=== PATIENT | female | born 1940 | race Caucasian/White ===

== ENCOUNTER → 2019-05-23 15:02 | Outpatient (CLI) | payer OTHER, SELFPAY ==
--- NOTE | ~2019-05-23 | MM_ITS ---
EXAMINATION: MM screening [facility]hew BI w eloina HISTORY: Screening mammogram TECHNIQUE: Craniocaudal and mediolateral oblique 3-D tomosynthesis images were obtained and synthetic 2-D images were generated. CAD analysis was submitted and interpreted. COMPARISON: 04/13/2018, 03/10/2017, 01/29/2016 bilateral digital screening mammogram examinations BREAST PARENCHYMAL COMPOSITION: There are scattered areas of fibroglandular density. FINDINGS: There is volume loss of the right breast consistent with partial mastectomy for breast canc er. There is mild right skin thickening likely related to prior radiation treatment. There are liyah us bilateral benign appearing calcifications including extensive secretory calcifications on the righ t in particular. There are calcified microhematomas. There is no evidence of suspicious mass, calcifi cation, or architectural distortion to suggest malignancy in either breast. There has been no suspici ous interval change. IMPRESSION: 1. No mammographic evidence of malignancy. 2. Recommend routine screening mammography in one year and any additional imaging as appropriate for this patient with history of breast cancer. BI-RADS Category 2: Benign finding(s). Reviewed, dictated and finalized at location A. O FINISH PHOTOGRAPHER IMPRESSION: 1. No mammographic evidence of malignancy. 2. Recommend routine screening mammography in one year and any additional imagi ng as appropriate for this patient with history of breast cancer. BI-RADS Category 2: Benign finding(s).
== END ==
PROVIDERS: PCP Family Medicine; Visit Provider Obstetrics & Gynecology
DX: Z12.31 Encounter for screening mammogram for malignant neoplasm of breast (principal)
CPT/HCPCS: 77063; 77067

== ENCOUNTER 2019-10-17 13:30 | Outpatient (RCR) | payer OTHER, SELFPAY ==
--- NOTE | 2019-09-30 14:22 | PTOPEVAL ---
PHYSICAL THERAPY EVALUATION AND PLAN OF CARE Thank you for referring Ladonna Rosa to [facility]. I recommend Ladonna participate in physical therapy 2x/week for 3weeks up until she goes on vacation. We will re-assess further needs at end of 3 weeks. Please review, sign, date and return this plan of care MIA. I agree with and certify that the following plan of care is medically necessary. Referring Physician Date Attending Provider: John Darnell MD Evaluation Outpatient Past Medical History Respiratory History Hx Chronic Obstructive Pulmonary Disease Yes (COPD) Diagnosis right hip pain, lumbar pain Onset 2 weeks ago Cause insidious Subjective Information Ladonna is here today with Query Text:As Reported By Patient/ acute right side pain. Had Family similar pain on the left wtih dx of trochanteric bursitis. x -ray report notes no significant changes in structure. She did receive an injection to the right hip that has helped significantly. Walking and stair climbing are no longer painful, but she will hurt with prolonged sitting and crossing her legs. Not taking medication at this time for pain. Self Report Pain Assessment Right Hip(s) Reported Pain Level 2 Pain Description Aching Pain Frequency Acute,Intermittent Greatest Pain Intensity 4 Pain Aggravating Factors Palpation Pain Score Pain Score 2: Self Report Lower Extremity Muscle Strength Testing Hip Strength Right Hip Flexion Strength 5 Normal Hip Extension Strength 4- Good - Hip Abduction Strength 3+ Fair + Knee Strength Right Knee Flexion Strength 4+ Good + Knee Extension Strength 4+ Good + Knee Strength Comments stagger stance balance: 20seconds with minimal sway each side; NBOS standing EC: [id number] with supervsion; Muscle Length Testing Left Hamstring Length -50 Query Text:(90 - 90 Position) Right Hamstring Length -40 Query Text:(90 - 90 Position) Palpation tender to palpation over right greater trochanter and long right ITB. Time Up Go (TUG) Timed Up and Go Test (TUG) (Seconds) 16 Assistive Devices Cane, Straight 5 Time Sit to Stand Time in Seconds
--- NOTE | 2019-10-17 14:04 | PTOPEVAL ---
PHYSICAL THERAPY DISCHARGE NOTE Thank you for referring Ladonna Rosa to [facility]. Ladonna is independent with HEP. I recommend d/c from PT at this time. Please review, sign, date and return this plan of care MIA. I agree with and certify that the following plan of care is medically necessary. Referring Physician Date Attending Provider: John Darnell MD Discharge Respiratory History Hx Chronic Obstructive Pulmonary Disease Yes (COPD) Diagnosis right hip pain, lumbar pain Cause insidious Subjective Information Ladonna reports no pain at this Query Text:As Reported By Patient/ time. Reports that her Family balance is much improved and she is able to climb the stairs much more confidently. She is able to get up to go to the bathroom at night without wobbling around. Pain Assessment Timing of Pain Assessment Timing of Pain Assessment Pre-Treatment Pain Scale Pain Scale Used Numeric (1 - 10) Self Report Pain Assessment Right Hip(s) Reported Pain Level 0 Additional Pain Comments no pain today with ex. Pain Score Pain Score 0: Self Report Lower Extremity Muscle Strength Testing Hip Strength Right Hip Flexion Strength 5 Normal Hip Extension Strength 4 Good Hip Abduction Strength 4 Good Knee Strength Right Knee Flexion Strength 5 Normal Knee Extension Strength 5 Normal Knee Strength Comments stagger stance balance: 30seconds with minimal sway each side; NBOS standing EC: [id number] Balance Assessment Time Up Go (TUG) Timed Up and Go Test (TUG) (Seconds) 14 Assistive Devices None 5 Time Sit to Stand Time in Seconds 14.8 5 Time Sit to Stand Comments without arm rests Query Text:Normative Data: If Greater Than 15 Seconds, 74% Increase Risk for Recurrent Falls Gait Assessment 2 Minute Walk Total Distance Walked (feet) 321 2 Minute Walk Gait Speed Score (feet/ 2.67 second) Number of Breaks Required 0 Stair Climbing Assessment Stair Climbing Assessment Stair Climbing Assistive Devices Railings Weight Bearing Status - Left Full Weight Bearing Status - Right Full Technique Alternating Steps Stair Climbing Direction Both Up and Down Stair Climbing Ability Independent PT Clinical Summary Ladonna has participated in 3 weeks of physical therapy for acute right hip pain. She
== END 2019-10-19 10:48 | disposition home or self-care (01) ==
LOC: ANHPT 13:30
PROVIDERS: Visit Provider Orthopaedic Surgery
DX: M54.5 Low back pain (principal); M25.551 Pain in right hip
CPT/HCPCS: 97110; 97161

== ENCOUNTER → 2020-03-28 09:05 | Outpatient (CLI) | payer OTHER, SELFPAY ==
--- NOTE | ~2020-03-28 | CT_ITS ---
EXAMINATION: CT chest wo con EXAM DATE: 03/28/2020 09:39 INDICATION: J84.9 - Interstitial pulmonary disease, unspecified. TECHNIQUE: Spiral CT of the chest without contrast. HRCT. Axial, coronal and sagittal images were rev iewed. Coronal maximum intensity pixel images of chest reviewed. The dose-length product (DLP) for this examination was 299.65 mGy-cm. The exposure was tailored according to patient size (auto mA exp osure control), and iterative reconstruction (ASIR) was used as additional dose reduction technique. Comparison is made to prior examination from 06/01/2018. FINDINGS: There is mild interval progression in the interlobular septal thickening, with regions of peripheral honeycombing, chronic interstitial lung disease. There are no pleural or pericardial effu sions. Tracheobronchial tree is patent. There is no mediastinal, hilar or axillary lymphadenopath y. There is no pneumothorax. Heart normal in size. There is mild to moderate coronary arterial calcification, arterial sclerosis. There is mild bronchiectasis. There is small sliding gastroesophag eal hiatal hernia. There is large duodenal diverticulum. There is thoracic spondylosis without oste oblastic or osteolytic lesions identified. There is lower thoracic kyphosis with chronic lower thor acic compression fractures. Moderate thoracic spondylosis. There are old rib fractures. IMPRESSION: 1. Moderate to severe pulmonary fibrosis, mild interval progression. 2. Bronchiectasis and emphysema. Reviewed, dictated and finalized at location A. RVISOR NUT PROCESSING
== END ==
PROVIDERS: PCP Emergency Medicine; Visit Provider Nurse Practitioner Family
DX: J84.9 Interstitial pulmonary disease, unspecified (principal); J47.9 Bronchiectasis, uncomplicated; J43.9 Emphysema, unspecified
CPT/HCPCS: 71250

== ENCOUNTER 2020-05-07 10:02 | Outpatient (CLI) | payer OTHER, SELFPAY ==
[2020-05-07 10:20] VITALS: PULSE 72; O2SAT 94
[2020-05-07 10:23] VITALS: PULSE 54; O2SAT 84
[2020-05-07 10:24] VITALS: PULSE 55; O2SAT 86
[2020-05-07 10:25] VITALS: PULSE 85; O2SAT 87
[2020-05-07 10:26] VITALS: PULSE 57; O2SAT 89
--- NOTE | 2020-05-07 10:45 | HOMEO2EVAL ---
Home Oxygen Evaluation RC: Home Oxygen (O2) Evaluation Start: 05/07/20 10:40 Freq: Status: Active Protocol: RPE Activity Type Activity Date Activity User E-Sign Co-Sign Detail Recorded Client Recorded Date Recorded By Document 05/07/20 10:20 KRM [email or web address] 05/07/20 10:45 KRM Document 05/07/20 10:23 KRM [email or web address] 05/07/20 10:45 KRM Document 05/07/20 10:24 KRM [email or web address] 05/07/20 10:45 KRM Document 05/07/20 10:25 KRM [email or web address] 05/07/20 10:45 KRM Document 05/07/20 10:26 KRM [email or web address] 05/07/20 10:45 KRM 05/07/20 05/07/20 05/07/20 10:20 10:23 10:24 Home O2 Evaluation Test Phase Resting Exercise Exercise Oxygen Delivery Room Air Room Air Nasal Cannula Oxygen Flow Rate (L/min) 1 Pulse Oximetry (90-100 %) 94 84 L 86 L Pulse Rate (60-100 beats/min) 72 54 L 55 L Activity Tolerance Good Good Ambulation Distance (feet) 200 Home Oxygen Evaluation Comments Treatment Charges O2 Evaluation - Outpatient 05/07/20 05/07/20 10:25 10:26 Home O2 Evaluation Test Phase Exercise Exercise Oxygen Delivery Nasal Cannula Nasal Cannula Oxygen Flow Rate (L/min) 2 3 Pulse Oximetry (90-100 %) 87 L 89 L Pulse Rate (60-100 beats/min) 85 57 L Activity Tolerance Good Good Ambulation Distance (feet) Home Oxygen Evaluation Comments Requires 3lpm with activity. Treatment Charges
== END 2020-05-07 10:03 | disposition home or self-care (01) ==
PROVIDERS: PCP Emergency Medicine; Visit Provider Nurse Practitioner Family
DX: R06.02 Shortness of breath (principal)
CPT/HCPCS: 94618

== ENCOUNTER 2020-06-27 08:07 | Outpatient (CLI) | payer OTHER, SELFPAY ==
--- NOTE | ~2020-06-27 | US_ITS ---
EXAMINATION: US venous doppler UE EXAM DATE: 06/27/2020 08:35 INDICATION: Left arm swelling. TECHNIQUE: Multiple grayscale, color flow, Doppler sonographic images of the left upper extremity vei ns obtained by technologist. Compression was performed where able. There is no prior study for olena carey. FINDINGS: Left upper extremity: Jugular vein: ------------> Normal. Subclavian vein: --------> Normal. Axillary vein:------------> Normal. Brachial vein:-----------> Normal. Basilic vein: ------------> Normal. Cephalic vein: ----------> Normal. Radial vein: ------------> Normal. Ulnar vein: > Normal. IMPRESSION: No deep venous thrombosis of the left upper extremity. Reviewed, dictated and finalized at location A.
== END 2020-06-27 08:08 | disposition home or self-care (01) ==
PROVIDERS: PCP Emergency Medicine; Visit Provider Orthopaedic Surgery
DX: M79.89 Other specified soft tissue disorders (principal)
CPT/HCPCS: 93971

== ENCOUNTER 2020-07-06 13:34 | Outpatient (CLI) | payer OTHER, SELFPAY ==
--- NOTE | ~2020-07-06 | MR_ITS ---
EXAMINATION: MR humerus LT wo con DATE: 07/06/2020 14:41 INDICATION: Left upper arm pain. TECHNIQUE: Magnetic resonance imaging (MRI) of the left humerus was performed without intravenous con trast. Sequences included axial, coronal, and sagittal STIR FSE and T1-weighted FSE. COMPARISON: Left shoulder radiographs 06/26/2020 FINDINGS: Bone alignment is normal. No fracture. There is a complete tear of proximal biceps tendon w ith distal retraction of the muscle and tendon. The torn end of the tendon is 9 cm from the superior glenoid. There is moderate subacromial/subdeltoid bursitis. IMPRESSION: 1. Complete tear of proximal biceps tendon with distal retraction of the muscle and tendon. 2. Moderate subacromial/subdeltoid bursitis. Reviewed, dictated and finalized at location A.
== END 2020-07-06 13:35 | disposition home or self-care (01) ==
PROVIDERS: PCP Emergency Medicine; Visit Provider Orthopaedic Surgery
DX: M79.89 Other specified soft tissue disorders (principal); S46.212A Strain of muscle, fascia and tendon of other parts of biceps, left arm, initial encounter; X58.XXXA Exposure to other specified factors, initial encounter; M75.52 Bursitis of left shoulder
CPT/HCPCS: 73218

== ENCOUNTER → 2020-07-18 14:43 | Outpatient (CLI) | payer OTHER, SELFPAY ==
--- NOTE | ~2020-07-18 | MM_ITS ---
EXAMINATION: MM screening [facility] BI w eloina HISTORY: Screening mammogram TECHNIQUE: Craniocaudal and mediolateral oblique 3-D tomosynthesis images were obtained and synthetic 2-D images were generated. CAD analysis was submitted and interpreted. COMPARISON: 05/23/2019, 04/11/2018, 03/10/2017 bilateral digital screening mammogram examinations BREAST PARENCHYMAL COMPOSITION: There are scattered areas of fibroglandular density. FINDINGS: Status post right partial mastectomy and radiotherapy for breast cancer. There are numerous bilateral benign breast calcifications including secretory type calcifications and calcified microhematomas.. There is no evidence of suspicious mass, calcification, or architectural distortion to suggest malign kadeem in either breast. There has been no suspicious interval change. IMPRESSION: 1. Status post right partial mastectomy for breast cancer. No current mammographic evidence of malign kadeem. 2. Recommend routine screening mammography in one year. BI-RADS Category 2: Benign finding(s). Reviewed, dictated and finalized at location A. IMPRESSION: 1. Status post right partial mastectomy for breast cancer. No current mammograp hic evidence of malignancy. 2. Recommend routine screening mammography in one year. BI-RADS Category 2: Benign finding(s).
== END ==
PROVIDERS: PCP Emergency Medicine; Visit Provider Obstetrics & Gynecology
DX: Z12.31 Encounter for screening mammogram for malignant neoplasm of breast (principal)
CPT/HCPCS: 77063; 77067

== ENCOUNTER 2020-08-10 12:22 | Outpatient (CLI) | payer OTHER, SELFPAY ==
--- NOTE | 2020-08-12 14:13 | WPDPFTINT ---
PFT Procedure Performed PFT Procedure Performed Spirometry with Pre/Post Bronchodilator Plethysmography (Lung Vol) Diffusing Cap (DLCO) Flow Vol Loop PFT Interpretation This PFT met all criteria for ATS standards and reproducibility FEV/FVC post bronchodilator 81% FEV1 73% FVC 69% TLC 63% RV 50% RV/TLC 37% DLCO 28% when adjusted for alveolar volume but not adjusted for hemoglobin Flow volume loops showed a restrictive pattern Impression: A restrictive ventilatory defect is present. This may be due to underlying interstitial lung disease or neuromuscular disease. When compared to a pulmonary function test from September 2017 there has been a significant decline in lung volumes And there was no restrictive lung disease at that time. Clinical correlation is advised.
== END 2020-08-10 12:23 | disposition home or self-care (01) ==
LOC: ANHPFT 12:24
PROVIDERS: PCP Emergency Medicine; Visit Provider Nurse Practitioner Family
DX: J44.9 Chronic obstructive pulmonary disease, unspecified (principal); J84.9 Interstitial pulmonary disease, unspecified
CPT/HCPCS: 94060; 94070; 94726; 94729

== ENCOUNTER 2020-08-24 13:00 | Outpatient (RCR) | payer OTHER, SELFPAY ==
--- NOTE | 2020-07-30 13:58 | PTOPEVAL ---
PHYSICAL THERAPY EVALUATION Thank you for referring Ladonna Rosa to [facility].? Shemar was evaluated for the dx of left shoulder deficiency/bursitis. The patient is scheduled to be seen for therapy? 2x/week for 4 weeks. Please review, sign, date and return this plan of care MIA. I agree with and certify that the following plan of care is medically necessary. Referring Physician Date Attending Provider: John Darnell MD *PT Outpatient Evaluation Start: 07/30/20 12:37 Freq: Status: Active Protocol: Document 07/30/20 12:38 MLV (Rec: 07/30/20 13:40 MLV [id number]) Therapy Assessment Status Assessment Status Assessment Status Evaluation Evaluation Information Problem Diagnosis left shoulder deficiency Onset 04/2020 Cause pain began after getting COVID shot but no injury Additional Evaluation Detail Patient had a new onset swelling of the left arm after getting a vaccination. Tests were done and was negative for blood clot, xrays showing OA. The pt has a hx of right RCR 5+years ago and has no current issues with the right arm. The pt is on O2 constantly at 3L. Patient reports continued swelling with occasional pain, affecting her sleep tolerance and use of her arm for reaching/lifting. The patient is right hand dominant. Diagnostic Tests X-Rays For This Problem Yes: OA shoulder MRI For This Problem Yes Pain Assessment Timing of Pain Assessment Timing of Pain Assessment Assessment Pain Scale Pain Scale Used Numeric (1 - 10) Self Report Pain Assessment Left Upper Arm(s) Reported Pain Level 2 Pain Frequency Acute Other Pain Description 4 Pain Aggravating Factors ADL's,Exercise/Activity, Lifting Pain Score Pain Score 2: Self Report Interventions Used Interventions Used By Clinicians Education,Exercise,Ice,Support of Extremity Pain Relief Interventions Used By Ice,Inactivity/Rest,Position Patient Change Upper Extremity Range of Motion General Upper Extremity Range of Motion Gross Upper Extremity Range of Motion active shoulder motion: right Comments flexion 133', abduction 104', ER 47', IR 60', ext 68' left shoulde
--- NOTE | 2020-08-17 13:48 | PCPTNOTE ---
Patient called & cancelled scheduled appointment this date due to not feeling well.
--- NOTE | 2020-08-24 16:47 | PTOPEVAL ---
PHYSICAL THERAPY DISCHARGE Thank you for referring Ladonna Rosa to [facility].? Shemar has been seen 6 visits for the dx of left RTC deficiency. Her goals are partially met and progress has peaked. [facility]. Please review, sign, date and return this plan of care MIA. I agree with and certify the following plan of care. Referring Physician Date Attending Provider: John Darnell MD *PT Outpatient Discharge Start: 07/30/20 12:37 Freq: Status: Active Protocol: Document 08/24/20 13:08 MLV (Rec: 08/24/20 14:01 [facility] [id number]) Therapy Assessment Status Assessment Status Discharge Evaluation Information Problem Diagnosis left shoulder deficiency Onset 04/2020 Cause pain began after getting COVID shot but no injury Additional Evaluation Detail Patient reports the swelling is decreasing and the carolyn wrapping is helping a lot. Pt continues to use carolyn wrap but not worn full day. The patient reports no trouble with her HEP and will continue the exercises on her own. Patient reports sleeping well now, but still has some restriction for lifting/reaching due to pain. The patient knows when to ask for help to prevent further trouble with her shoulder. Pain Assessment Timing of Pain Assessment Timing of Pain Assessment Assessment Pain Scale Pain Scale Used Numeric (1 - 10) Self Report Pain Assessment Left Upper Arm(s) Reported Pain Level 0 Other Pain Description 2 with reaching Pain Score Pain Score 0: Self Report Interventions Used Pain Relief Interventions Used By Inactivity/Rest,Position Patient Change Upper Extremity Range of Motion General Upper Extremity Range of Motion Gross Upper Extremity Range of Motion left shoulder flexion 90', Comments abduction 71', extension 70', ER 61', IR 71'. Passive elevation 116' Elbow and wrist motion WFL's lamberto. Upper Extremity Muscle Strength Testing General Upper Extremity Strength Gross Upper Extremity Strength Comments isometric testing: shoulder flexion/abduction left 4-/5, right 4/5; ER 4/5 left 4-/5 left; IR right 5/5 left 4/5 w/
== END 2020-08-27 09:29 | disposition home or self-care (01) ==
LOC: ANHPT 13:00
PROVIDERS: PCP Emergency Medicine; Visit Provider Orthopaedic Surgery
DX: M25.512 Pain in left shoulder (principal)
CPT/HCPCS: 97014; 97110; 97140; 97162; G0283

== ENCOUNTER → 2021-02-19 09:09 | Outpatient (CLI) | payer OTHER, SELFPAY ==
--- NOTE | ~2021-02-19 | XR_ITS ---
EXAMINATION: XR hand BI arthritis min 3V DATE: 02/19/2021 10:00 INDICATION: Other specified abnormal immunological findings. TECHNIQUE: 4 views of right hand and 4 views of left hand on a total of 7 radiographs were obtained. COMPARISON: None. FINDINGS: RIGHT HAND: Bone alignment is normal. No fracture. There is severe osteoarthritis of first carpometac arpal joint. There is mild osteoarthritis of third metacarpophalangeal joint and some of the interpha langeal joints. There is severe osteoarthritis of first interphalangeal joint and moderate osteoarthr itis of second distal interphalangeal joint. LEFT HAND: Bone alignment is normal. No fracture. There is severe osteoarthritis of first carpometaca rpal joint and moderate osteoarthritis of first metacarpophalangeal joint. There is mild osteoarthrit is of many of the interphalangeal joints. There is moderate osteoarthritis of second distal interphal angeal joint. IMPRESSION: 1. Polyarticular osteoarthritis. Reviewed, dictated and finalized at location A. ING MACHINE OPERATOR
--- NOTE | ~2021-02-19 | XR_ITS ---
EXAMINATION: XR foot RT standing 2V DATE: 02/19/2021 10:00 INDICATION: Other specified abnormal immunological findings. TECHNIQUE: 2 views of right foot standing were obtained. COMPARISON: Right ankle radiographs 11/20/2007 FINDINGS: There is moderate hallux valgus. No fracture. There is diffuse osteopenia. There is plate a nd screw fixation of distal fibula. There is mild osteoarthritis of first and second metatarsophalang eal joints and some of the midfoot joints and interphalangeal joints. There are enthesophytes at the plantar and posterior aspects of calcaneal tuberosity. IMPRESSION: 1. Mild polyarticular osteoarthritis. 2. Moderate hallux valgus. Reviewed, dictated and finalized at location A. T MGR
--- NOTE | ~2021-02-19 | XR_ITS ---
EXAMINATION: XR foot LT standing 2V DATE: 02/19/2021 10:00 INDICATION: Other specified abnormal immunological findings. TECHNIQUE: 2 views of left foot standing were obtained. COMPARISON: None. FINDINGS: There is moderate hallux valgus. No acute fracture. There is an old fracture deformity of h ead of fifth proximal phalanx. There is diffuse osteopenia. There is mild osteoarthritis of first-thi rd metatarsophalangeal joints and many of the interphalangeal joints and midfoot joints. There is sev ere osteoarthritis of second and third tarsometatarsal joints. IMPRESSION: 1. Polyarticular osteoarthritis. 2. Moderate hallux valgus. Reviewed, dictated and finalized at location A. ING PRESS OPERATOR
== END ==
PROVIDERS: PCP Emergency Medicine; Visit Provider Internal Medicine
DX: M18.0 Bilateral primary osteoarthritis of first carpometacarpal joints (principal); M19.072 Primary osteoarthritis, left ankle and foot; M19.071 Primary osteoarthritis, right ankle and foot; R76.9 Abnormal immunological finding in serum, unspecified; M20.12 Hallux valgus (acquired), left foot; M20.11 Hallux valgus (acquired), right foot; M19.042 Primary osteoarthritis, left hand; M19.041 Primary osteoarthritis, right hand
CPT/HCPCS: 73130; 73620

== ENCOUNTER 2021-07-26 08:53 | Outpatient (CLI) | payer OTHER, SELFPAY ==
--- NOTE | ~2021-07-26 | CT_ITS ---
EXAMINATION: CT chest high resolution wo ks DATE: 07/26/2021 10:18 INDICATION: Interstitial lung disease, shortness of breath and hypoxia TECHNIQUE: Computed tomography (CT) of the chest was performed without intravenous contrast. The dose -length product (DLP) was 219.49 mGy-cm. Automated exposure control and iterative reconstruction tech [employer] were employed. COMPARISON: 03/28/2020 FINDINGS: Again seen are widespread subpleural groundglass and reticular opacities of the lungs witho ut significant change. No definite honeycombing is identified. No acute superimposed airspace opaciti es are present. There is no pleural effusion or pneumothorax. There are stable pulmonary nodules. No pathologically enlarged thoracic lymph nodes are identified. The heart size is normal. There is a sta ble T12 compression fracture. Multiple old right-sided rib fractures are noted. IMPRESSION: 1. Stable chronic interstitial lung disease in a pattern of nonspecific interstitial pneumonia (NSIP) . Reviewed, dictated and finalized at location B. IMPRESSION: 1. Stable chronic interstitial lung disease in a pattern of nonspecific interst itial pneumonia (NSIP).
--- NOTE | 2021-07-26 13:35 | WPDPFTINT ---
PFT Procedure Performed PFT Procedure Performed Spirometry with Pre/Post Bronchodilator Plethysmography (Lung Vol) Diffusing Cap (DLCO) Flow Vol Loop PFT Interpretation This is a pulmonary function test with pre and post-bronchodilator spirometry, plethysmography and diffusing capacity. The test was performed and results interpreted in accordance with the 2019 and 2005 ATS/ERS Task Force guidelines respectively using the Global Lung Function Initiative-2012 reference equations. Patient demonstrated good effort and cooperation. Reproducibility criteria were met. The quality of the pre bronchodilator spirometry maneuver was Grade A and post bronchodilator spirometry maneuver was Grade A. Findings: Spirometry: the contour the expiratory flow tracing is that of a witch's hat . The contour of the inspiratory flow tracing is normal. The pre bronchodilator FVC is 1.67 L, 72% predicted. The pre bronchodilator FEV1 is 1.36 L, 76% predicted. The pre bronchodilator FEV1: FVC ratio was 82%. The post bronchodilator FVC is 1.70 L, representing 1% increase. The post bronchodilator FEV1 is 1.37 L, representing no change. The post bronchodilator FEV1: FVC ratio is 81%. Plethysmography: The total lung capacity is 2.83 L, 61% predicted. The functional residual capacity is 1.71 L, 65% predicted. The residual volume is 1.10 L, 50% predicted. Diffusing capacity: The diffusion capacity unadjusted for hemoglobin and carboxyhemoglobin is 5.5, 30% predicted. The diffusing capacity adjusted for alveolar volume is 2.36, 55% predicted. Compared to the prior pulmonary function test on 08/10/2020 the post bronchodilator FVC is unchanged from 1.63 L to 1.70 L. The post bronchodilator FEV1 is unchanged from 1.32 L to 1.37 L. The total lung capacity is unchanged from 2.92 L to 2.83 L. The functional residual capacity is unchanged from 1.71 L to 1.71 L. The residual volume is unchanged from 1.09 L to 1.10 L. The diffusing capacity unadjusted for hemoglobin and carboxyhemoglobin is unchanged from 5.1 to 5.5. The diffusing capacity adjusted for alveolar volume is increased from 2.01 to 2.36. Impression: There is a mild restrictive ventilatory abnormality with a normal FEV1. The spirometry is normal without evidence of an obstructive abnormality. There is no significant improvement after inhaling a single dose of albuterol. The diffusing capacity unadjusted for hemoglobin and carboxyhemoglobin is severely decreased and remains moderately decreased when adjusted for alveolar volume. in comparison to the prior pulmonary function test on 08/10/2020 there has been a greater than anticipated time dependent increase in the diffusion capacity adjusted for alveolar volume with no change in the FVC, FEV1, total lung capacity, functional residual capacity, residual volume and diffusing capacity unadjusted for hemoglobin and carboxyhemoglobin. Clinical correlation is recommended.
== END 2021-07-26 08:54 | disposition home or self-care (01) ==
PROVIDERS: PCP Emergency Medicine; Visit Provider Internal Medicine Critical Care Medicine
DX: J84.9 Interstitial pulmonary disease, unspecified (principal); R94.2 Abnormal results of pulmonary function studies
CPT/HCPCS: 71250; 94060; 94726; 94729

== ENCOUNTER → 2021-10-11 13:24 | Outpatient (CLI) | payer OTHER, SELFPAY ==
--- NOTE | ~2021-10-11 | MM_ITS ---
EXAMINATION: MM screening [facility] BI w [place] HISTORY: Screening TECHNIQUE: Craniocaudal and mediolateral oblique 3-D tomosynthesis images were obtained and synthetic 2-D images were generated. CAD analysis was submitted and interpreted. COMPARISON: Comparison to multiple prior studies sequentially, with oldest reviewed study dated 12/15. BREAST PARENCHYMAL COMPOSITION: There are scattered areas of fibroglandular density. FINDINGS: There is no evidence of suspicious mass, calcification, or architectural distortion to sugg est malignancy in either breast. There has been no suspicious interval change. IMPRESSION: 1. No mammographic evidence of malignancy. 2. Recommend routine screening mammography in one year. BI-RADS Category 1: Negative Reviewed, dictated and finalized at location A.
== END ==
PROVIDERS: PCP Emergency Medicine; Visit Provider Emergency Medicine
DX: Z12.31 Encounter for screening mammogram for malignant neoplasm of breast (principal)
CPT/HCPCS: 77063; 77067

== ENCOUNTER → 2021-10-30 15:24 | Outpatient (CLI) | payer OTHER, SELFPAY ==
--- NOTE | ~2021-10-30 | DEXA_ITS ---
Bone Density Report Name: FAB DINH Age: 81 Sex: Female Ethnicity: White Date of : 1940 Indication: postmenopausal; screening for osteoporosis; parental hip fracture; height loss; prior fracture; hysterectomy; Referring Provider: JAZMYNE WEINER Study: Bone densitometry was performed. Exam Date: October 30, 2021 Accession number: [id number] Bone Density: Region BMD T-score Z-score Classification AP Spine (L1, L2, L3) 0.871 -1.3 1.2 Osteopenia Femoral Neck (Left) 0.524 -2.9 -0.7 Osteoporosis Total Hip (Left) 0.687 -2.1 -0.1 Osteopenia Femoral Neck (Right) 0.634 -1.9 0.3 Osteopenia Total Hip (Right) 0.662 -2.3 -0.3 Osteopenia Total Hip Mean 0.675 -2.2 -0.2 Osteopenia World Health Organization criteria for BMD impression classify patients as: Normal (T-score at or above -1.0), Osteopenia (T-score between -1.0 and -2.5), or Osteoporosis (T-score at or below -2.5). 10-year Fracture Risk: FRAX not reported because: Some T-score for Spine Total or Hip Total or Femoral Neck at or below -2.5 Prior hip or vertebral fracture Clinical Information Provided by Patient: Have had a previous hip or vertebral fracture Has had a low trauma fracture Parent has had a hip fracture Has used the following medications: Vitamin D, Calcium Has the following medical conditions: Hysterectomy, COPD Patient maximum height was 63 Menopause Age: 28 No regular weight bearing exercise Onset of menses at age 13 Number of children 2 Impression: The patient has established osteoporosis, based on the Left Femoral Neck T-score and the existence of a prior fracture. The patient has risk factors, including: parental hip fracture, previous fracture. Discussion: HIGH RISK OF FRACTURE. BONE DENSITY IS UNDESIRABLY LOW AT ONE OR MORE SKELETAL SITES, CONSISTENT WITH POSTMENOPAUSAL OSTEOPOROSIS. This patient's lowest T-score, in a patient who has previously fractured, meets the World Health Organization's (WHO) criteria for severe osteoporosis. In untreated patients, the risk of osteoporotic fracture increases approximately two-fold for each 1.0 SD decrease in T-score. Low bone density is not the only risk factor for fracture; also consider factors such as patient's age, frailty or poor health, risk of falling, risk of injury, previous osteoporotic fracture, family history of osteoporosis, cigarette smoking, low body weight, etc. Not everyone with low bone mineral density has osteoporosis; osteomalacia and other metabolic bone disorders should also be considered. Patients who have osteoporosis should be evaluated for specific diseases and conditions (secondary causes) that may cause or contribute to bone loss. The [place] [employer]ocrinologists (AACE) and National Osteoporosis Foundation (NOF) recommend pharmacologic
== END ==
PROVIDERS: PCP Emergency Medicine; Visit Provider Emergency Medicine
DX: Z78.0 Asymptomatic menopausal state (principal); M85.88 Other specified disorders of bone density and structure, other site; M81.0 Age-related osteoporosis without current pathological fracture; M85.851 Other specified disorders of bone density and structure, right thigh
CPT/HCPCS: 77080

== ENCOUNTER 2021-11-24 08:43 | Observation (INO) | payer OTHER, SELFPAY ==
[2021-11-24] VITALS (16 sets, daily range): BP systolic 87–115; BP diastolic 47–86; PULSE 67–92; RESP 16–22; TEMP 36.6–37.4; O2SAT 92–100; BMI 26.2
--- NOTE | ~2021-11-24 | XR_ITS ---
EXAMINATION: XR foot LT min 3V DATE: 11/24/2021 09:26 INDICATION: Left foot pain. TECHNIQUE: 4 views of left foot were obtained. COMPARISON: Left foot radiographs 02/19/2021 FINDINGS: There is moderate hallux valgus. No fracture. There is mild osteoarthritis of first metatar sophalangeal joint and some the interphalangeal joints and midfoot joints. There is moderate osteoart hritis of some of the midfoot joints. There are enthesophytes at the posterior and plantar aspects of calcaneal tuberosity. IMPRESSION: 1. Polyarticular osteoarthritis. 2. Moderate hallux valgus. Reviewed, dictated and finalized at location A.
--- NOTE | ~2021-11-24 | XR_ITS ---
EXAMINATION: XR foot RT min 3V DATE: 11/24/2021 09:27 INDICATION: Right foot pain. TECHNIQUE: 4 views of right foot were obtained. COMPARISON: Right foot radiographs 02/19/2021 FINDINGS: There is severe hallux valgus. No fracture. There is mild osteoarthritis of first and secon d metatarsophalangeal joints. There is mild to moderate osteoarthritis of some of the interphalangeal joints and midfoot joints. There are enthesophytes at the posterior and plantar aspects of calcaneal tuberosity. There is plate and screw fixation of distal fibula. IMPRESSION: 1. Polyarticular osteoarthritis. 2. Severe hallux valgus. Reviewed, dictated and finalized at location A.
--- NOTE | ~2021-11-24 | XR_ITS ---
EXAMINATION: XR chest 1V portable DATE: 11/24/2021 09:27 INDICATION: Shortness of breath. TECHNIQUE: A single frontal view of the chest was obtained. COMPARISON: Chest 2 views 04/08/2017, chest CT 07/26/2021 FINDINGS: There is chronic volume loss of right hemithorax. There are coarse interstitial opacities t hroughout the lungs bilaterally, right worse than left. No pleural effusion or pneumothorax. The hear t size is normal. There are surgical clips in right axilla. IMPRESSION: 1. Severe chronic interstitial lung disease, right worse than left. Reviewed, dictated and finalized at location A.
--- NOTE | ~2021-11-24 | US_ITS ---
EXAMINATION: US venous doppler [facility] DATE: 11/24/2021 09:53 INDICATION: Lower limb pain. TECHNIQUE: Grayscale ultrasound images without and with compression and Doppler ultrasound images of the bilateral lower extremity veins were obtained. COMPARISON: Ultrasound 06/27/2020 FINDINGS: The visualized portions of right common femoral vein, profunda (deep) femoral vein, femoral vein, pop liteal vein, peroneal veins, posterior tibial veins, and greater saphenous vein outflow are patent. The visualized portions of left common femoral vein, profunda femoral vein, femoral vein, popliteal v ein, peroneal veins, posterior tibial veins, and greater saphenous vein outflow are patent. IMPRESSION: 1. No deep venous thrombosis. Reviewed, dictated and finalized at location A.
--- NOTE | 2021-11-24 08:53 | ECG_ITS ---
Measurements Intervals Baker Rate: 82 P: 42 PA: 180 QRS: -41 QRSD: 78 T: 3 QT: 376 QTc: 440 Interpretive Statements SINUS RHYTHM ATRIAL AND VENTRICULAR PREMATURE COMPLEXES LEFT AXIS DEVIATION POOR R WAVE PROGRESSION, ANTERIOR LEADS CONSIDER INFERIOR INFARCT, AGE INDETERMINATE BASELINE ARTIFACT- I, II, III, AVR, AVL, AVF ABNORMAL ECG NO PREVIOUS ECG AVAILABLE FOR COMPARISON Electronically Signed On 11-24-2021 13:57:43 CDT by Sherif Dinh D.O.
--- NOTE | 2021-11-24 09:13 | ED.GENADULT ---
HPI - General Adult General Chief complaint: Extremity Problem,Nontraumatic Stated complaint: bilateral foot pain, dizzy, weak, light headed Time Seen by Provider: 11/24/21 08:46 History of Present Illness HPI narrative: Patient presents emergency department from home for bilateral foot pain. Patient states that 2 days ago she began to have severe pain in her bilateral feet the pain is located in the bottom of her feet and radiates up into her bilateral ankles and in her left leg up into her left posterior calf she denies any known trauma or injury. States the pain was so severe that this morning she woke up and got up to go the bathroom and it caused her to be near syncopal as she had had such severe pain. Patient states she does have a history of interstitial lung disease chronically on 4 L nasal cannula at all times. She denies any fevers or chills denies any direct trauma or injury to the legs she denies any lower back denies any numbness or tingling Related Data Home Medications Medication Instructions Recorded Confirmed calcium carbonate 600 mg calcium 600 mg PO DAILY 09/20/19 05/14/21 (1,500 mg) tablet (Calcium) fish oil-dha-epa 1,200 mg-144 cap PO 09/20/19 05/14/21 mg-216 mg capsule cholecalciferol (vitamin D3) 25 25 mcg PO DAILY 03/28/20 05/14/21 mcg (1,000 unit) capsule omeprazole 20 mg capsule,delayed See Rx Instructions PO DAILY 03/28/20 05/14/21 release oxybutynin chloride 15 mg 15 mg PO DAILY 03/28/20 05/14/21 tablet,extended release 24 hr albuterol sulfate 90 mcg/actuation 1 inh inhalation Q4H 03/26/21 05/14/21 aerosol inhaler Allergies Allergy/AdvReac Type Severity Reaction Status Date / Time tetanus toxoid, adsorbed Allergy Intermediate SWELLING/HI Verified 11/24/21 10:03 VES bacitracin Allergy Unknown unknown Verified 11/24/21 10:03 polymyxin B Allergy Unknown unknown Verified 11/24/21 10:03 Tetanus Vaccines and Toxoid Allergy Unknown unknown Verified 11/24/21 10:03 lidocaine AdvReac Intermediate DIARRHEA Verified 11/24/21 10:03 neomycin AdvReac Intermediate SKIN Verified 11/24/21 10:03 IRRITATION pramoxine AdvReac Intermediate SKIN Verified 11/24/21 10:03 IRRITATION Review of Systems Review of Systems: Gen.: Denies fevers or chills ENT: Denies congestion Respiratory: Reports chronic oxygen use secondary to interstitial lung disease CV: Reports near-syncope secondary to pain GI: Denies abdominal pain nausea, emesis or diarrhea Musculoskeletal: D see HPI Neuro: Denies numbness, tingling, weakness or focal weakness Skin: Denies rash Except as documented, all other systems reviewed and negative [facility] Past Medical History Medical History NICHOLAS positive (~07/2020) Breast lump Bronchitis Cancer Cataracts, bilateral Chicken pox Chronic cough Chronic obstructive pulmonary disease CMC arthritis, thumb, degenerative Former smoker Generalized osteoarthritis of multiple sites Greater trochanteric bursitis of right hip H/O malignant neoplasm of breast History of one miscarriage Jackson neuroma (~1992) Mumps GABBY (obstructive sleep apnea) Osteoporosis Systemic lupus erythematosus with lung involvement Surgical History Surgical History H/O rotator cuff surgery (~2002) History of ankle surgery ORIF right ankle History of lumpectomy (~1985) History of tonsillectomy (~1952) History of total hysterectomy (1970) Family History Family History Father , 61 Heart failure Arthritis Pneumonia Mother , GI Bleed GI bleed Social History Social History Smoking packs per day: 1 Smoking cigarettes per day: 20.0 Years smoked: 17 Smoking pack-years: 17.00 Smoking status: Former smoker Tobacco type: cigarettes Smoking end date: 0
[2021-11-24 09:39] LABS: Basophils Absolute Auto 0.1 K/mm3 (0.0-0.1); Basophils Percent Auto 0.3 % (0.2-1.2); Eosinophils Absolute Auto 0.1 K/mm3 (0-0.3); Eosinophils Percent Auto 0.5 % (0-4.4); Hematocrit 37.4 % (37.0-47.0); Hemoglobin 12.2 g/dL (12.0-15.0); Immature Granulocyte Absolute 0.09 K/mm3 (0.00-0.031); Immature Granulocyte Percent A 0.5 % (0-0.5); Lymphocytes Absolute Auto 1.35 K/mm3 (0.9-3.2); Lymphocytes Percent Auto 8.2 % (18.3-44.2); Mean Corpuscular HGB Conc 32.6 g/dl (32-36); Mean Corpuscular Hemoglobin 30.6 pg (26-34); Mean Corpuscular Volume 93.7 fl (80-100); Mean Platelet Volume 10.6 fl (7.4-10.4); Monocytes Absolute Auto 1.2 K/mm3 (0.1-0.6); Monocytes Percent Auto 7.3 % (2.6-8.5); Neutrophils Absolute Auto 13.7 K/mm3 (1.3-6.7); Neutrophils Percent Auto 83.2 % (45.5-73.1); Platelet Count Result 165 k/mm3 (150-375); Red Blood Count 3.99 M/mm3 (4.2-5.4); Red Cell Distribution Width 14.4 % (11.5-14.5); White Blood Count 16.5 K/mm3 (4.5-10.0)
[2021-11-24 09:51] LABS: INR 1.2; Prothrombin Time 15.2 Seconds (11.1-14.7)
[2021-11-24 09:53] LABS: Partial Thromboplastin Time 30.4 SECONDS (22.3-36.8)
[2021-11-24 09:56] LABS: Lactic Acid Reflex 1.1 mmol/L (0.7-2.0)
[2021-11-24 09:57] LABS: Alanine Aminotransferase 15 U/L (6-35); Albumin Level 3.4 g/dL (3.5-5.1); Alkaline Phosphatase 90 U/L (38-126); Anion Gap 6 mmol/L (8-16); Aspartate Amino Transferase 28 U/L (14-36); Bilirubin,Total 0.7 mg/dL (0.2-1.3); Blood Urea Nitrogen 15 mg/dL (7-17); Calcium 8.5 mg/dL (8.4-10.2); Carbon Dioxide 27 mmol/L (22-30); Chloride 106 mmol/L (98-107); Creatine Kinase 59 U/L (30-135); Estimated Glomerular Filt Rate 48; Glucose 117 mg/dL (65-110); Potassium 4.2 mmol/L (3.4-5.0); Sodium 139 mmol/L (137-145); Uric Acid 5.3 mg/dL (2.5-7.5)
[2021-11-24] MEDS: SODIUM CHLORIDE 0.9% IV 1,000 ML 999 ML IV CONT (09:59)
[2021-11-24 10:43] LABS: CRP 15.1 mg/dL (<1.0)
[2021-11-24 10:57] LABS: Erythrocyte Sedimentation Rate 54 mm/hr (0-20)
[2021-11-24] MEDS: traMADol HCL (*CRX) 50 MG TABLET PO (11:58)
--- NOTE | 2021-11-24 14:00 | PM.IMHP ---
H&P: HPI History of Present Illness Date/Time: 11/24/21 14:00 Chief Complaint: Foot pain. Narrative: This is a very pleasant 81-year-old female with chronic interstitial lung disease, chronic respiratory failure on 2 L nasal cannula, and obstructive sleep apnea on CPAP who presented to the emergency department from home for evaluation of foot pain. She has had troubles with her balance for quite some time and a few months ago she went to [facility] [employer] where she purchased some rigid orthotics. They did not seem to help with her balance however they were not painful so she continued to use them. Perhaps 1 month ago she developed paresthesias in both of her feet and a little over week ago she stopped using the orthotics as she was worried that perhaps they were causing the tingling in her feet though though sensations have continued. The last couple of days he has developed pain in her feet that she is unable to describe accurately. The pain started on the dorsum of both feet but it has since started to affect almost a majority of the foot and ankle, even up into the distal left calf. Her has been helping her ambulate as the pain is much worse with weight-bearing. This morning when she got out of bed the pain was unbearable and so severe that she thought she was going to pass out. The pain is also worse with palpation, and active and passive range of motion. She has noticed some redness and swelling on the dorsum of the feet as well, left greater than right. The feet feel warm but she has not had a fever. She has not had any injuries or trauma to the feet and she denies new exercise routines. She has no history of cellulitis, gout, or inflammatory arthritis. Of note she was started on CellCept last for her interstitial lung disease. She has not had any other changes to her medication regimen. Review of Systems Review of Systems: Twelve systems were reviewed. She is always cold. No fever or sweats. She and her had COVID several months ago and her smell and taste have still not rebounded. No recent cold or flu symptoms. She denies chest pain, pleuritic pain, palpitations, and shortness of breath. Appetite has been okay. No nausea, vomiting, or diarrhea. She has chronic shortness of breath related to her interstitial lung disease. More recently she was started on CellCept as detailed above after meeting with a pulmonology specialist at [facility]. except as documented, all other systems were reviewed and are negative. [facility]LY [facility] Past Medical History Medical History (Updated 11/24/21 @ 22:12 by Nisha Elizabeth PA-C) NICHOLAS positive (07/2020) Breast cancer Cataracts, bilateral Chronic interstitial lung disease Chronic kidney disease Chronic respiratory failure with hypoxia, on home oxygen therapy Former smoker Generalized osteoarthritis of multiple sites Jackson neuroma (1992) Mumps Obstructive sleep apnea on CPAP Osteoporosis Overactive bladder Surgical History Surgical History (Updated 11/24/21 @ 22:04 by Nisha Elizabeth PA-C) History of ankle surgery ORIF right ankle fracture. History of appendectomy History of lumpectomy of right breast (1985) History of rotator cuff surgery History of tonsillectomy (1952) History of total hysterectomy (1970) Family History Family History Father , 61 Heart failure Arthritis Pneumonia Mother , GI Bleed GI bleed Social History Social History Social History: Surrogate medical decision maker: Brice Rosa, . Code status: Full code. 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 Spiritual care concerns: No Meds
--- NOTE | 2021-11-24 14:21 | ADMGEN ---
This patient, Ladonna Rosa, was admitted to 3 [facility] Surg Room 313-01 at 1355. Patient/family oriented to hospital policies and general routines including ID bracelet, bed and alarms, visiting hours, pain management, procedures, bathroom and other care routines, personal items, smoking policy, room service/diet, and visiting hours. Information on how to activate the Rapid Response Team has been discussed. Patient/Family are encouraged to report perceived risks to care and to ask questions if they do not understand what they are told or what they should do.
[2021-11-24] MEDS: WATER IVPB (20:33)
[2021-11-24] MEDS: CEFAZOLIN IVPB (20:33)
[2021-11-24] MEDS: DEXTROSE 5% IVPB (20:33)
[2021-11-24] MEDS: ACETAMINOPHEN 325 MG TABLET 650 MG PO (22:22)
[2021-11-25] VITALS (8 sets, daily range): BP systolic 102–114; BP diastolic 48–62; PULSE 77–93; RESP 16–26; TEMP 36.4–37.1; O2SAT 90–100
[2021-11-25 06:06] LABS: Basophils Absolute Auto 0.1 K/mm3 (0.0-0.1); Basophils Percent Auto 0.5 % (0.2-1.2); Eosinophils Absolute Auto 0.2 K/mm3 (0-0.3); Eosinophils Percent Auto 1.2 % (0-4.4); Hematocrit 37.9 % (37.0-47.0); Hemoglobin 11.4 g/dL (12.0-15.0); Immature Granulocyte Absolute 0.07 K/mm3 (0.00-0.031); Immature Granulocyte Percent A 0.5 % (0-0.5); Immature Platelet Fraction Pct 4.2 % (0.9-11.2); Lymphocytes Absolute Auto 1.51 K/mm3 (0.9-3.2); Lymphocytes Percent Auto 10.2 % (18.3-44.2); Mean Corpuscular HGB Conc 30.1 g/dl (32-36); Mean Corpuscular Hemoglobin 30.2 pg (26-34); Mean Corpuscular Volume 100.5 fl (80-100); Mean Platelet Volume 11.5 fl (7.4-10.4); Monocytes Percent Auto 6.4 % (2.6-8.5); Neutrophils Percent Auto 81.2 % (45.5-73.1); Platelet Count Result 153 k/mm3 (150-375); Red Blood Count 3.77 M/mm3 (4.2-5.4); Red Cell Distribution Width 14.6 % (11.5-14.5); White Blood Count 14.8 K/mm3 (4.5-10.0)
[2021-11-25 06:19] LABS: Alanine Aminotransferase 14 U/L (6-35); Alkaline Phosphatase 82 U/L (38-126); Anion Gap 5 mmol/L (8-16); Aspartate Amino Transferase 29 U/L (14-36); Bilirubin,Total 0.6 mg/dL (0.2-1.3); Blood Urea Nitrogen 14 mg/dL (7-17); Calcium 7.8 mg/dL (8.4-10.2); Carbon Dioxide 22 mmol/L (22-30); Chloride 109 mmol/L (98-107); Estimated Glomerular Filt Rate 53; Glucose 95 mg/dL (65-110); Potassium 4.1 mmol/L (3.4-5.0); Sodium 136 mmol/L (137-145)
[2021-11-25] MEDS: FLUTICASONE/UMECLIDIN/VILANTER 100-62.5-25 MCG ELLIPTA 1 PUFF INHALATION (08:19)
[2021-11-25] MEDS: ALBUTEROL SULFATE (*SP) AEROSOL 1 PUFF INHALATION ×4 (08:19→20:16)
[2021-11-25] MEDS: CEFAZOLIN IVPB ×2 (08:32→21:46)
[2021-11-25] MEDS: WATER IVPB ×2 (08:32→21:46)
[2021-11-25] MEDS: DEXTROSE 5% IVPB ×2 (08:32→21:46)
[2021-11-25] MEDS: CALCIUM CARBONATE (OSCAL) 500 MG TABLET 600 MG PO (08:34)
[2021-11-25] MEDS: CHOLECALCIFEROL 1,000 UNITS TABLET 1000 UNITS PO (08:35)
[2021-11-25] MEDS: OMEGA 3 POLYUNSAT FATTY ACIDS 1 GM CAP PO (08:35)
[2021-11-25] MEDS: PANTOPRAZOLE 40 MG TABLET PO ×2 (08:35→21:47)
[2021-11-25 08:46] LABS: Hemoglobin A1C 5.2 % (<5.7)
[2021-11-25 10:03] LABS: Folic Acid > 20.0 ng/mL (2.76->20)
--- NOTE | 2021-11-25 12:05 | PM.IMPN ---
Progress Note: A&P Assessment and Plan (1) Bilateral foot pain: Code(s): M79.671 - Pain in right foot; M79.672 - Pain in left foot Status: Acute Assessment and Plan: Etiology is not entirely clear. Her symptoms started couple of days ago. Denies progressive weakness. Labs are consistent with an inflammatory response including white blood cell count of 16.5, ESR 54, and a CRP of 15.1 and perhaps she has an acute inflammatory syndrome. ?secondary to medication, however, it dose not appear this is a common reaction to the medication. 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 Hold steroids at this time given her immunocompromised state. Continue with Ancef for possible cellulitis of the left foot. Analgesics available as needed- add tramadol PRN and trial gabapentin 100 mg TID as this sounds like neuropathy. Venous doppler negative for DVT. B12, folate and TSH within normal limits. As the patient has been camping, we will check a Lyme ab with western blot reflux. (2) Cellulitis of left foot: Code(s): L03.116 - Cellulitis of left lower limb Status: Acute Assessment and Plan: Continue Ancef for possible cellulitis however her physical exam findings and symptoms may be related to an acute inflammatory syndrome as detailed above. WBC 18 to 14. Minimal improvement in pain. (3) Chronic kidney disease: Qualifiers: Chronic kidney disease stage: stage 3 (moderate) Code(s): N18.9 - Chronic kidney disease, unspecified Status: Chronic Assessment and Plan: CKD stage 3, stable. Creatinine is stable on review of previous labs. Avoid nephrotoxic agents. (4) Chronic interstitial lung disease: Code(s): J84.9 - Interstitial pulmonary disease, unspecified Status: Acute Assessment and Plan: Recently started on CellCept as detailed above per Dr. Law at [facility]. Holding Cellcept for now. Continue inhalers and supplemental O2. (5) Chronic respiratory failure with hypoxia, on home oxygen therapy: Code(s): J96.11 - Chronic respiratory failure with hypoxia; Z99.81 - Dependence on supplemental oxygen Status: Chronic Assessment and Plan: As above. Not in acute exacerbation. (6) Obstructive sleep apnea on CPAP: Code(s): G47.33 - Obstructive sleep apnea (adult) (pediatric); Z99.89 - Dependence on other enabling machines and devices Status: Chronic Assessment and Plan: CPAP will be provided for the patient to use while hospitalized. Plan code status: Full code Disposition: Home with spouse Diet: Heart healthy Time Spent With Patient Time with patient: 15 - 25 minutes Subjective Date/time seen: 11/25/21 12:05 pleasant 81-year-old female with chronic and interstitial lung disease, on 2 L home oxygen, obstructive sleep apnea on CPAP who presented to the emergency department for evaluation of left foot pain. The patient reportedly has had a shooting pain in her foot and up to her leg that started little over week ago. She has also had issues with her balance. Of the day before admission she was having trouble bearing weight which prompted her ED visit. Lab work was concerning for acute infection and patient is taking CellCept for chronic interstitial lung disease. The patient is being treated for possible left foot cellulitis. patient reports pain to her left foot is worse with palpation and with bearing weight. She has shooting pain up to her left posterior calf. An intermittent pain to her right foot. She denies paresthesia. She denies recent injury. Patient does endorse camping in her camper, within the past 1-2 weeks. she received on tramadol in the emergency department that did help with her pain. Tylenol given overnight was ineffective. She denies any new medications except CellCept which she has been taking intermitte
[2021-11-25] MEDS: GABAPENTIN 100 MG CAPSULE PO ×2 (15:13→17:53)
[2021-11-26] VITALS (10 sets, daily range): BP systolic 101–107; BP diastolic 53–68; PULSE 62–107; RESP 17–25; TEMP 36.3–36.9; O2SAT 94–99
--- NOTE | 2021-11-26 02:14 | PCRCNOTE ---
Patient states she only uses her home inhaler prn, so she did not want to be awakened twice. Therapist giving pt's inhaler to her now. Could be switched to q6 instead of q4.
[2021-11-26] MEDS: ALBUTEROL SULFATE (*SP) AEROSOL 1 PUFF INHALATION ×2 (02:17→08:33)
[2021-11-26 05:54] LABS: Basophils Absolute Auto 0.1 K/mm3 (0.0-0.1); Basophils Percent Auto 0.5 % (0.2-1.2); Eosinophils Absolute Auto 0.3 K/mm3 (0-0.3); Eosinophils Percent Auto 3.1 % (0-4.4); Hematocrit 34.4 % (37.0-47.0); Hemoglobin 11.2 g/dL (12.0-15.0); Immature Granulocyte Absolute 0.04 K/mm3 (0.00-0.031); Immature Granulocyte Percent A 0.4 % (0-0.5); Lymphocytes Percent Auto 20.7 % (18.3-44.2); Mean Corpuscular HGB Conc 32.6 g/dl (32-36); Mean Corpuscular Hemoglobin 30.5 pg (26-34); Mean Corpuscular Volume 93.7 fl (80-100); Mean Platelet Volume 11.1 fl (7.4-10.4); Monocytes Absolute Auto 0.8 K/mm3 (0.1-0.6); Monocytes Percent Auto 7.8 % (2.6-8.5); Neutrophils Absolute Auto 6.9 K/mm3 (1.3-6.7); Neutrophils Percent Auto 67.5 % (45.5-73.1); Platelet Count Result 163 k/mm3 (150-375); Red Blood Count 3.67 M/mm3 (4.2-5.4); Red Cell Distribution Width 14.5 % (11.5-14.5); White Blood Count 10.2 K/mm3 (4.5-10.0)
[2021-11-26 06:05] LABS: Alanine Aminotransferase 12 U/L (6-35); Alkaline Phosphatase 89 U/L (38-126); Anion Gap 5 mmol/L (8-16); Aspartate Amino Transferase 25 U/L (14-36); Bilirubin,Total 0.4 mg/dL (0.2-1.3); Blood Urea Nitrogen 15 mg/dL (7-17); Carbon Dioxide 26 mmol/L (22-30); Chloride 107 mmol/L (98-107); Estimated Glomerular Filt Rate 48; Glucose 100 mg/dL (65-110); Potassium 4.3 mmol/L (3.4-5.0); Sodium 138 mmol/L (137-145)
[2021-11-26] MEDS: FLUTICASONE/UMECLIDIN/VILANTER 100-62.5-25 MCG ELLIPTA 1 PUFF INHALATION (08:33)
[2021-11-26] MEDS: GABAPENTIN 100 MG CAPSULE PO ×3 (08:58→17:54)
[2021-11-26] MEDS: OMEGA 3 POLYUNSAT FATTY ACIDS 1 GM CAP PO (08:58)
[2021-11-26] MEDS: CALCIUM CARBONATE (OSCAL) 500 MG TABLET 600 MG PO (08:59)
[2021-11-26] MEDS: PANTOPRAZOLE 40 MG TABLET PO ×2 (09:00→21:25)
[2021-11-26] MEDS: CHOLECALCIFEROL 1,000 UNITS TABLET 1000 UNITS PO (09:00)
[2021-11-26] MEDS: ENOXAPARIN 40 MG/0.4 ML SYRINGE SUB-Q (09:00)
[2021-11-26] MEDS: WATER IVPB (09:01)
[2021-11-26] MEDS: CEFAZOLIN IVPB (09:01)
[2021-11-26] MEDS: DEXTROSE 5% IVPB (09:01)
--- NOTE | 2021-11-26 11:31 | PM.IMPN ---
Progress Note: A&P Assessment and Plan (1) Bilateral foot pain: Code(s): M79.671 - Pain in right foot; M79.672 - Pain in left foot Status: Acute Assessment and Plan: Etiology is not entirely clear. Her symptoms started couple of days ago. Denies progressive weakness. Labs are consistent with an inflammatory response including white blood cell count of 16.5, ESR 54, and a CRP of 15.1 and perhaps she has an acute inflammatory syndrome. ?secondary to medication, however, it dose not appear this is a common reaction to the medication. 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 Hold steroids at this time given her immunocompromised state. Continue with Ancef for possible cellulitis of the left foot. Analgesics available as needed- add tramadol PRN and trial gabapentin 100 mg TID as this sounds like neuropathy. Venous doppler negative for DVT. B12, folate and TSH within normal limits. As the patient has been camping, we will check a Lyme ab with western blot reflux - pending. 11/26/21 Pain is improved with gabapentin. ?medication, hypoxia, or idiopathic cause. Awaiting Dr. Padilla, [facility] recommendation for Cellcept. PT/OT eval (2) Cellulitis of left foot: Code(s): L03.116 - Cellulitis of left lower limb Status: Acute Assessment and Plan: Continue Ancef for possible cellulitis however her physical exam findings and symptoms may be related to an acute inflammatory syndrome as detailed above. WBC 18 to 14 to 10 (11/26/21). Pain improving. Transition to Keflex 500 mg Q12 hour x6 days (CrCl 35) (3) Chronic kidney disease: Qualifiers: Chronic kidney disease stage: stage 3 (moderate) Code(s): N18.9 - Chronic kidney disease, unspecified Status: Chronic Assessment and Plan: CKD stage 3, stable. Creatinine is stable on review of previous labs. Avoid nephrotoxic agents. (4) Chronic interstitial lung disease: Code(s): J84.9 - Interstitial pulmonary disease, unspecified Status: Acute Assessment and Plan: Recently started on CellCept as detailed above per Dr. Law at [facility]. Holding Cellcept for now. Continue inhalers and supplemental O2. (5) Chronic respiratory failure with hypoxia, on home oxygen therapy: Code(s): J96.11 - Chronic respiratory failure with hypoxia; Z99.81 - Dependence on supplemental oxygen Status: Chronic Assessment and Plan: As above. Not in acute exacerbation. (6) Obstructive sleep apnea on CPAP: Code(s): G47.33 - Obstructive sleep apnea (adult) (pediatric); Z99.89 - Dependence on other enabling machines and devices Status: Chronic Assessment and Plan: CPAP will be provided for the patient to use while hospitalized. Plan code status: Full code Disposition: Home with spouse. Possible discharge tomorrow if continues to improve and can follow up with PCP. Diet: Heart healthy Time Spent With Patient Time with patient: 15 - 25 minutes Subjective Date/time seen: 11/26/21 11:31 Interval history: Pleasant 81-year-old female with chronic and interstitial lung disease, on 2 L home oxygen, obstructive sleep apnea on CPAP who presented to the emergency department for evaluation of left foot pain.? The patient reportedly has had a shooting pain in her foot and up to her leg that started little over week ago.? She has also had issues with her balance.? On the day before admission she was having trouble bearing weight which prompted her ED visit.? Lab work was concerning for acute infection and patient is taking CellCept for chronic interstitial lung disease.? The patient is being treated for possible left foot cellulitis. The patient reports the pain in her feet and legs is slightly improved today than yesterday. She was able to walk to the bathroom. She does think her right foot is more edematous today. She is to ca
[2021-11-26] MEDS: CEPHALEXIN 500 MG CAPSULE PO (21:25)
[2021-11-27 02:21] VITALS: PULSE 69; RESP 19; O2SAT 96
[2021-11-27 05:28] VITALS: BP 98/54; PULSE 98; RESP 18; TEMP 36.4; O2SAT 98
[2021-11-27 06:00] LABS: Basophils Absolute Auto 0.1 K/mm3 (0.0-0.1); Basophils Percent Auto 0.7 % (0.2-1.2); Eosinophils Absolute Auto 0.5 K/mm3 (0-0.3); Eosinophils Percent Auto 6.5 % (0-4.4); Hematocrit 33.9 % (37.0-47.0); Hemoglobin 11.1 g/dL (12.0-15.0); Immature Granulocyte Absolute 0.03 K/mm3 (0.00-0.031); Immature Granulocyte Percent A 0.4 % (0-0.5); Lymphocytes Percent Auto 22.9 % (18.3-44.2); Mean Corpuscular HGB Conc 32.7 g/dl (32-36); Mean Corpuscular Hemoglobin 30.9 pg (26-34); Mean Corpuscular Volume 94.4 fl (80-100); Mean Platelet Volume 11.4 fl (7.4-10.4); Monocytes Absolute Auto 0.7 K/mm3 (0.1-0.6); Monocytes Percent Auto 9.6 % (2.6-8.5); Neutrophils Absolute Auto 4.5 K/mm3 (1.3-6.7); Neutrophils Percent Auto 59.9 % (45.5-73.1); Platelet Count Result 153 k/mm3 (150-375); Red Blood Count 3.59 M/mm3 (4.2-5.4); Red Cell Distribution Width 14.5 % (11.5-14.5); White Blood Count 7.4 K/mm3 (4.5-10.0)
[2021-11-27 06:28] LABS: Alanine Aminotransferase 13 U/L (6-35); Albumin Level 2.8 g/dL (3.5-5.1); Alkaline Phosphatase 82 U/L (38-126); Anion Gap 4 mmol/L (8-16); Aspartate Amino Transferase 25 U/L (14-36); Bilirubin,Total 0.4 mg/dL (0.2-1.3); Blood Urea Nitrogen 17 mg/dL (7-17); Calcium 8.1 mg/dL (8.4-10.2); Carbon Dioxide 24 mmol/L (22-30); Chloride 109 mmol/L (98-107); Estimated Glomerular Filt Rate 48; Glucose 106 mg/dL (65-110); Sodium 137 mmol/L (137-145)
[2021-11-27 08:20] VITALS: O2SAT 93
[2021-11-27] MEDS: FLUTICASONE/UMECLIDIN/VILANTER 100-62.5-25 MCG ELLIPTA 1 PUFF INHALATION (08:20)
[2021-11-27] MEDS: CHOLECALCIFEROL 1,000 UNITS TABLET 1000 UNITS PO (09:28)
[2021-11-27] MEDS: CALCIUM CARBONATE (OSCAL) 500 MG TABLET 600 MG PO (09:28)
[2021-11-27] MEDS: PANTOPRAZOLE 40 MG TABLET PO (09:28)
[2021-11-27] MEDS: CEPHALEXIN 500 MG CAPSULE PO (09:28)
[2021-11-27] MEDS: GABAPENTIN 100 MG CAPSULE PO (09:28)
[2021-11-27] MEDS: OMEGA 3 POLYUNSAT FATTY ACIDS 1 GM CAP PO (09:28)
--- NOTE | 2021-11-27 09:45 | PM.DS ---
DS: Admitting Diagnosis Discharge Date 11/27/21 0945 Admitting Diagnosis Cellulitis of the bilateral lower extremities DS: Discharge Diagnosis Discharge Diagnosis (1) Bilateral foot pain: Code(s): M79.671 - Pain in right foot; M79.672 - Pain in left foot Status: Acute Assessment and Plan: Etiology is not entirely clear. Her symptoms started couple of days ago. Denies progressive weakness. Labs are consistent with an inflammatory response including white blood cell count of 16.5, ESR 54, and a CRP of 15.1 and perhaps she has an acute inflammatory syndrome. secondary to medication, however, it dose not appear this is a common reaction to the medication. 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 Hold steroids at this time given her immunocompromised state. Continue with Ancef for possible cellulitis of the left foot. Analgesics available as needed- add tramadol PRN and trial gabapentin 100 mg TID as this sounds like neuropathy. Venous Doppler negative for DVT. B12, folate and TSH within normal limits. As the patient has been camping, we will check a Lyme ab with western blot reflux - pending. 11/26/21 Pain is improved with gabapentin. ?medication, hypoxia, or idiopathic cause. Awaiting Dr. Padilla, [facility] recommendation for Cellcept. PT/OT eval (2) Cellulitis of left foot: Code(s): L03.116 - Cellulitis of left lower limb Status: Acute Assessment and Plan: Continue Ancef for possible cellulitis however her physical exam findings and symptoms may be related to an acute inflammatory syndrome as detailed above. WBC currently 7.4. Pain improving. Transition to Keflex 500 mg Q12 hour x6 days (CrCl 35) (3) Chronic kidney disease: Qualifiers: Chronic kidney disease stage: stage 3 (moderate) Code(s): N18.9 - Chronic kidney disease, unspecified Status: Chronic Assessment and Plan: CKD stage 3, stable. Creatinine is stable on review of previous labs. Avoid nephrotoxic agents. (4) Chronic interstitial lung disease: Code(s): J84.9 - Interstitial pulmonary disease, unspecified Status: Acute Assessment and Plan: Recently started on CellCept as detailed above per Dr. Law at [facility]. Holding Cellcept for now. Continue inhalers and supplemental O2. (5) Chronic respiratory failure with hypoxia, on home oxygen therapy: Code(s): J96.11 - Chronic respiratory failure with hypoxia; Z99.81 - Dependence on supplemental oxygen Status: Chronic Assessment and Plan: As above. Not in acute exacerbation. (6) Obstructive sleep apnea on CPAP: Code(s): G47.33 - Obstructive sleep apnea (adult) (pediatric); Z99.89 - Dependence on other enabling machines and devices Status: Chronic Assessment and Plan: CPAP will be provided for the patient to use while hospitalized. DS: Summary Hospital Course Hospital Course: Patient is 81-year-old female with a past medical history CKD, breast cancer, GABBY, chronic respiratory failure on oxygen who presented to the ED with complaints foot pain. Left foot x-ray showed probably arthritic osteoarthritis and moderate hallux valgus, right foot x-ray showed polyarthritic RC arthritis and severe hallux valgus. Patient is was started on IV cephalexin and has been switched to p.o. Keflex. She was also started on gabapentin for possible neuropathy. She denies any chest pain, shortness of breath, nausea, vomiting, diarrhea, constipation, weakness or fatigue. Patient has been able to walk around on a walker which is her baseline. Patient stated that she is ready to go. Labs and vital signs are stable at this time. Patient denies any further complaints. Her feet do look a little red but does seem to be better. There is some swelling however is very minimal about a 1+ pitting. Patient will be discharged home and states that
== END 2021-11-27 11:30 | disposition home or self-care (01) ==
LOC: ANHED 12:33 → ANH3MEDSUR 14:15
PROVIDERS: Nurse Practitioner Family; Admitting Provider Chiropractor; Emergency Provider Emergency Medicine; PCP Emergency Medicine; Visit Provider Nurse Practitioner
DX: M79.671 Pain in right foot (principal); M79.672 Pain in left foot; L03.116 Cellulitis of left lower limb; N18.30 Chronic kidney disease, stage 3 unspecified; R53.1 Weakness; R42 Dizziness and giddiness; J84.9 Interstitial pulmonary disease, unspecified; J96.11 Chronic respiratory failure with hypoxia; Z99.81 Dependence on supplemental oxygen; G47.33 Obstructive sleep apnea (adult) (pediatric); Z99.89 Dependence on other enabling machines and devices; M70.61 Trochanteric bursitis, right hip; J44.9 Chronic obstructive pulmonary disease, unspecified; M81.0 Age-related osteoporosis without current pathological fracture; M32.13 Lung involvement in systemic lupus erythematosus; M15.9 Polyosteoarthritis, unspecified; M20.10 Hallux valgus (acquired), unspecified foot; R20.2 Paresthesia of skin; M79.89 Other specified soft tissue disorders; R94.31 Abnormal electrocardiogram [ECG] [EKG]; Z79.51 Long term (current) use of inhaled steroids; Z87.891 Personal history of nicotine dependence; Z79.899 Other long term (current) drug therapy
CPT/HCPCS: 36415; 71045; 73630; 80053; 82550; 82607; 82746; 83036; 83605; 84443; 84550; 85025; 85055; 85610; 85652; 85730; 86140; 87040; 93005; 93970; 94002; 94640; 96361; 96365; 96366; 96372; 96376; 97161; 99285; A9270; G0378; J0690; J1650; J7030

== ENCOUNTER → 2022-01-09 10:59 | Outpatient (CLI) | payer OTHER, SELFPAY ==
--- NOTE | ~2022-01-09 | XR_ITS ---
XR chest 2V 01/09/2022 11:14 Indication: Cough and shortness of breath. Procedure: 2 view chest Comparison: 11/24/2021 Findings: There is extensive mixed interstitial and airspace disease bilaterally, unchanged from 06/2021. No acute focal pneumonia, edema or effusion. Status post left mastectomy with right axillary lymph node dissection. No acute osseous abnormality. Osteopenia. Multiple wedge compression deformiti es of the thoracic spine. Impression: 1: Stable chronic mixed interstitial and airspace disease bilaterally, consistent with chronic inters titial fibrosis. Reviewed, dictated and finalized at location A. Impression: 1: Stable chronic mixed interstitial and airspace disease bilaterally, consiste nt with chronic interstitial fibrosis.
== END ==
PROVIDERS: PCP Emergency Medicine; Visit Provider Emergency Medicine
DX: J44.9 Chronic obstructive pulmonary disease, unspecified (principal); R05.9 Cough, unspecified; Z85.118 Personal history of other malignant neoplasm of bronchus and lung; R91.8 Other nonspecific abnormal finding of lung field
CPT/HCPCS: 71046

== ENCOUNTER 2022-04-02 14:23 | Outpatient (CLI) | payer OTHER, SELFPAY ==
--- NOTE | ~2022-04-02 | US_ITS ---
EXAMINATION: US art doppler w press LE BI DATE: 04/02/2022 16:07 INDICATION: Peripheral vascular disease TECHNIQUE: Segmental pressures and plethysmographic and Doppler waveforms of the brachial and lower e xtremity arteries were obtained. COMPARISON: None. FINDINGS: Right and left brachial artery pressures of 103 mm Hg and 103 mm Hg, respectively, are concordant (no rmal difference <= 30 mmHg). The right and left high-thigh pressure indices are 1.19 and 1.29, respec tively (normal > 1.2). The right ankle-brachial index (ALLYSSA) is 1.14 (normal >= 0.9-1). The right great toe-brachial index (T BI) is 0.52 (normal >= 0.6-0.8). The right lower extremity segmental pressure gradients are normal (n ormal gradients <= 20-30 mmHg between adjacent levels on the same leg or the same levels on the two l egs). Arterial waveforms are biphasic with brisk systolic upstrokes throughout. The left ALLYSSA is 1.13. The left TBI is 0.59. The left lower extremity segmental pressure gradients are increased between the left ahlts-vic-gqnb popliteal artery and the left dorsalis pedis and posterior body posterior tibial arteries. Arterial waveforms are biphasic with brisk systolic upstrokes throug hout. IMPRESSION: 1. Mild bilateral arterial occlusive disease with moderately decreased bilateral TBI's. 2. Cardiac arrhythmia is present. Correlate with EKG. Reviewed, dictated and finalized at location A. [employer] IMPRESSION: 1. Mild bilateral arterial occlusive disease with moderately decreased bilatera l TBI's. 2. Cardiac arrhythmia is present. Correlate with EKG.
== END 2022-04-02 14:24 | disposition home or self-care (01) ==
PROVIDERS: PCP Emergency Medicine; Visit Provider Emergency Medicine
DX: I73.89 Other specified peripheral vascular diseases (principal)
CPT/HCPCS: 93923

== ENCOUNTER 2022-07-09 07:40 | Outpatient (CLI) | payer OTHER, SELFPAY ==
--- NOTE | ~2022-07-09 | CT_ITS ---
EXAMINATION: CTA abd aorta runoff DATE: 07/09/2022 08:19 INDICATION: Bilateral lower limb pain TECHNIQUE: Computed tomographic angiography (CTA) of the abdominal, pelvis, and both lower extremitie s was performed with 150 mL Omnipaque 350 intravenous contrast. Automated exposure control and iterat rip reconstruction technique were employed. The dose-length product was 743.33 mGy-cm. COMPARISON: CT abdomen and pelvis dated 06/12/2015 FINDINGS: ABDOMINAL AORTA AND ITS BRANCHES: Small amount of atherosclerotic plaque along the normal caliber abdominal aorta with no dissection. T here appears up to moderate 50-70% stenosis at the origin of the celiac axis and superior mesenteric artery. Mild stenosis at the origin of the right renal artery and inferior mesenteric artery. No sten osis at the left renal artery. PELVIC VASCULATURE: No evident plaque or stenosis at the left common, external or internal iliac arteries. Small amount o f atherosclerotic plaque with mild stenosis along the distal right internal iliac artery and without stenosis at the right common iliac artery. No evident plaque or stenosis along the right external jamaal ac artery. RIGHT LOWER EXTREMITY: No evident plaque or stenosis throughout the arteries of the right lower limb with three-vessel runof f to the ankle. Fragment or screw and lateral plate and screw fixation of an old healed fracture of t he distal right fibula. LEFT LOWER EXTREMITY: No evident plaque or stenosis throughout the arteries of the left lower limb with three-vessel runoff to the ankle. ADDITIONAL FINDINGS: Interval progression of coarse peripheral reticular opacities with honeycombing at the bilateral lung bases, right greater than left, consistent with usual interstitial pneumonia (UIP) pattern chronic i nterstitial lung disease. There is likely corresponding volume loss with mild elevation the right hem idiaphragm. No pleural effusion. Heart size is normal. No pericardial effusion. Small sliding-type hi atal hernia. Liver, gallbladder, pancreas, bilateral adrenal glands and kidneys are normal. Diverticu lum arising from the second portion the duodenum. There is heterogeneous enhancement of the spleen li amanda related to early phase of contrast. In addition there has several small well-defined likely micha gn low density splenic lesions many of which can be seen on contrast-enhanced chest CT dated 06/01/15 and which could represent splenic cysts, hemangiomas or sequela of granulomatous disease. Moderate to large amount of stool throughout the colon which could be seen with constipation. Moderate sigmoid: Predominant diverticulosis without adjacent inflammatory stranding to suggest diverticulitis. No brandee l obstruction. Appendix is not visualized and may be surgically absent. Bladder is normal. The uterus is not identified and has likely been surgically resected. Trace amount of likely physiologic free f luid in the deep pelvis. No abscess or free intraperitoneal gas. No pathologically enlarged abdominal or pelvic lymphadenopathy. Multiple chronic compression fractures in the lumbar and lower thoracic s pine. IMPRESSION: 1. Mild scattered atherosclerotic disease in the abdomen and pelvis most notable for up to moderate stenosis at the origin of the celiac axis and superior mesenteric arteries. 2. No evident atherosclerotic plaque or stenosis in the arteries of the bilateral lower limbs with bi lateral three-vessel runoff to the ankle. 3. Progression of UIP pattern chronic interstitial lung disease at the visualized lower lungs. 4. Small sliding-type hiatal hernia. 5. Diverticulosis. Reviewed, dictated and finalized at location A.
[2022-07-09 08:11] LABS: Estimated Glomerular Filt Rate 48
== END 2022-07-09 07:41 | disposition home or self-care (01) ==
PROVIDERS: PCP Emergency Medicine; Visit Provider Internal Medicine Cardiovascular Disease
DX: I73.9 Peripheral vascular disease, unspecified (principal); R91.8 Other nonspecific abnormal finding of lung field; K44.9 Diaphragmatic hernia without obstruction or gangrene; K57.90 Diverticulosis of intestine, part unspecified, without perforation or abscess without bleeding
CPT/HCPCS: 75635; Q9967

== ENCOUNTER 2022-09-09 12:34 | Outpatient (CLI) | payer OTHER, SELFPAY ==
--- NOTE | ~2022-09-09 | MR_ITS ---
MRI of the brain Clinical History: Unsteady gait Technique: Axial and sagittal T1-weighted images were acquired. These were followed by axial T2-weigh santosh, diffusion weighted, gradient, and FLAIR images. Findings: There is no acute infarct, intracranial hemorrhage, or mass lesion. There are moderate to a dvanced chronic white matter changes throughout the periventricular white matter bilaterally. Ventricles and subarachnoid spaces are mildly prominent. Orbits are unremarkable. Paranasal sinuses a nd mastoid air cells are clear. Major intracranial flow voids are intact. Sagittal midline structures are intact. IMPRESSION: No intracranial hemorrhage, mass lesion, or acute infarct. Moderate to advanced chronic microvascular ischemic change, and mild generalized atrophy. Reviewed, dictated and finalized at location . IMPRESSION: No intracranial hemorrhage, mass lesion, or acute infarct. Moderate to advanced chronic microvascular ischemic change, and mild generalize d atrophy.
== END 2022-09-09 12:35 | disposition home or self-care (01) ==
PROVIDERS: PCP Emergency Medicine; Visit Provider Internal Medicine Rheumatology
DX: R26.81 Unsteadiness on feet (principal); R25.1 Tremor, unspecified
CPT/HCPCS: 70551

== ENCOUNTER 2022-10-07 14:00 | Emergency (ER) | payer OTHER, SELFPAY ==
--- NOTE | 2022-10-07 14:04 | ED.URI ---
HPI - URI/Sore Throat General Chief Complaint: Upper Respiratory Infection Stated Complaint: sore throat, right ear and head pain Time Seen by Provider: 10/07/22 14:03 Source: patient Mode of arrival: ambulatory Limitations: no limitations History of Present Illness HPI Narrative: Ladonna is an 82-year-old female patient presenting to the clinic today with complaints of sore throat, right ear pain, and pain behind the right ear. She reports symptoms began on Thursday. No known fever or chills. Does have productive cough sometimes clear sometimes yellow phlegm. History of COPD. She does wear home O2 when needed. MD elicited complaint: sore throat and other (Right ear pain) Related Data Home Medications Medication Instructions Recorded Confirmed calcium carbonate 600 mg calcium 600 mg PO DAILY 09/20/19 10/07/22 (1,500 mg) tablet (Calcium) fish oil-dha-epa 1,200 mg-144 1 cap PO DAILY 09/20/19 10/07/22 mg-216 mg capsule cholecalciferol (vitamin D3) 25 25 mcg PO DAILY 03/28/20 10/07/22 mcg (1,000 unit) capsule omeprazole 20 mg capsule,delayed See Rx Instructions PO DAILY 03/28/20 10/07/22 release oxybutynin chloride 15 mg 15 mg PO DAILY 03/28/20 10/07/22 tablet,extended release 24 hr albuterol sulfate 90 mcg/actuation 1 inh inhalation Q4H 03/26/21 10/07/22 aerosol inhaler Allergies Allergy/AdvReac Type Severity Reaction Status Date / Time tetanus toxoid, adsorbed Allergy Intermediate SWELLING/HI Verified 10/07/22 14:15 VES bacitracin Allergy Unknown unknown Verified 10/07/22 14:15 polymyxin B Allergy Unknown unknown Verified 10/07/22 14:15 Tetanus Vaccines and Toxoid Allergy Unknown unknown Verified 10/07/22 14:15 lidocaine AdvReac Intermediate DIARRHEA Verified 10/07/22 14:15 neomycin AdvReac Intermediate SKIN Verified 10/07/22 14:15 IRRITATION pramoxine AdvReac Intermediate SKIN Verified 10/07/22 14:15 IRRITATION Review of Systems Review of Systems: Pertinent positives per HPI. Patient denies any fever, chills, rash, headache, visual changes, dizziness, cough, shortness of breath, chest pain, palpitations, nausea, vomiting, diarrhea, constipation, abdominal pain, or any urinary issues. 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 History of appendectomy History of lumpectomy of right breast (1985) History of rotator cuff surgery History of tonsillectomy (1952) History of total hysterectomy (1970) Family History Family History Father , 61 Heart failure Arthritis Pneumonia Mother , GI Bleed GI bleed Social History Social History Social History: Surrogate medical decision maker: Brice Rosa, . Code status: Full code. Smoking packs per day: 1 Smoking cigarettes per day: 20.0 Years smoked: 17 Smoking pack-years: 17.00 Smoking status: Former smoker Alcohol intake: never Substance use: never Lack of Transportation: No Lack of Food: Never True Current Housing: I Have Housing Concerned About Future Housing: No Difficulty Paying Gas/Electric Bills: No Difficulty Paying for Meds: No Currently Unemployed: No Education: High School Diploma/GED Difficulty w/ Childcare or Family Care: No Occupation/Education: retired Additional occupation/education comments: For
[2022-10-07 14:15] VITALS: BP 100/62; PULSE 77; RESP 24; TEMP 36.4; O2SAT 95
[2022-10-07 14:17] VITALS: BP 100/62; PULSE 77; RESP 24; TEMP 36.4; O2SAT 95
== END 2022-10-07 14:40 | disposition home or self-care (01) ==
LOC: EXPCOLL 14:07
PROVIDERS: Emergency Provider Nurse Practitioner Family; PCP Emergency Medicine
DX: J02.9 Acute pharyngitis, unspecified (principal); H92.01 Otalgia, right ear; R59.9 Enlarged lymph nodes, unspecified; Z87.891 Personal history of nicotine dependence; G47.33 Obstructive sleep apnea (adult) (pediatric); M81.0 Age-related osteoporosis without current pathological fracture; H26.9 Unspecified cataract; J84.9 Interstitial pulmonary disease, unspecified; M15.9 Polyosteoarthritis, unspecified; N18.9 Chronic kidney disease, unspecified; Z85.3 Personal history of malignant neoplasm of breast
CPT/HCPCS: 87081; 87880; 99213; G0463

== ENCOUNTER 2022-12-09 10:30 | Outpatient (CLI) | payer OTHER, SELFPAY ==
--- NOTE | 2022-12-09 | EST_ITS ---
Patient Info Name: Ladonna Rosa Age: 82 years : 1940 Gender: Female Ht: 62 in Wt: 121 lbs BSA: 1.55 m2 Exam Date: 12/09/2022 11:46 AM Exam Location: [facility] Stress Patient Status: Outpatient Admit Date: 12/09/2022 Staff Ordering Physician: Consuelo Godfrey MD Attending Provider: Consuelo Godfrey MD Exercise Technologist: Alisa Ramírez CT Exercise Physician: Sherif Dinh DO Exam Type: CA stress eddie w NM Study Info Indications R06.09 - Other forms of dyspnea A regadenoson stress test was performed. Summary 1. 1. Negative lexiscan stress test for ischemic ST changes by ECG criteria. 2. 2. Stable hemodynamics throughout the test. 3. 3. Nuclear scan to follow and will be reported separately. Please correlate with it. 4. 4. Patient informed of the above results. Protocol: Lexiscan Stress ECG Details Stage: REST Duration (min): 2 min : 33 sec HR (bpm): 75 SBP (mmHg): 117 DBP (mmHg): 77 Stage: REST Duration (min): 11 min : 41 sec HR (bpm): 80 SBP (mmHg): 110 DBP (mmHg): 74 Stage: STAGE 1 Duration (min): 0 min : 59 sec HR (bpm): 82 SBP (mmHg): 110 DBP (mmHg): 74 Stage: RECOVERY Duration (min): 1 min : 0 sec HR (bpm): 100 SBP (mmHg): 110 DBP (mmHg): 74 Stage: RECOVERY Duration (min): 2 min : 0 sec HR (bpm): 96 SBP (mmHg): 110 DBP (mmHg): 74 Stage: RECOVERY Duration (min): 3 min : 0 sec HR (bpm): 76 SBP (mmHg): 110 DBP (mmHg): 74 Stage: RECOVERY Duration (min): 4 min : 0 sec HR (bpm): 59 SBP (mmHg): 110 DBP (mmHg): 74 Stage: RECOVERY Duration (min): 5 min : 0 sec HR (bpm): 45 SBP (mmHg): 110 DBP (mmHg): 74 Stage: RECOVERY Duration (min): 6 min : 0 sec HR (bpm): 65 SBP (mmHg): 110 DBP (mmHg): 74 Stage: RECOVERY Duration (min): 7 min : 0 sec HR (bpm): 87 SBP (mmHg): 146 DBP (mmHg): 53 Stage: RECOVERY Duration (min): 8 min : 0 sec HR (bpm): --- SBP (mmHg): 146 DBP (mmHg): 53 Stage: RECOVERY Duration (min): 9 min : 0 sec HR (bpm): --- SBP (mmHg): 146 DBP (mmHg): 53 Stage: RECOVERY Duration (min): 9 min : 31 sec HR (bpm): --- SBP (mmHg): 146 DBP (mmHg): 53 Rest HR: 80 bpm Peak HR: 102 bpm Rest Sys BP: 110 mmHg Peak Sys BP: 146 mmHg Max Pred HR: 140 bpm % Max Pred HR: 73 % Target HR: 119 bpm Max RPP: 14,892 bpm*mmHg Termination Reason: Completed protocol Cardiac Symptoms: Shortness of breath Total Time: 1 min : 0 sec Rest Gomez BP: 74 mmHg Peak Gomez BP: 53 mmHg Total Dose: 0.4 mg Resting ECG Sinus rhythm, first degree AV block, anterolateral infarct, age indeterminate. Stress ECG No ST changes. Arrhythmias None. Report Signatures
--- NOTE | ~2022-12-09 | NM_ITS ---
EXAMINATION: NM eddie stress w perfusion DATE: 12/09/2022 13:24 INDICATION: Other forms of dyspnea TECHNIQUE: Rest images were obtained following intravenous administration of 9.1 mCi Tc99m tetrofosmi n (Myoview). The patient was infused intravenously with Lexiscan (Regadenoson). Then, 88.3 mCi Tc99m tetrofosmin (Myoview) was administered intravenously, and stress images were obtained in both supine and prone positions. Data was reconstructed into short axis and horizontal and vertical long axis SPE CT images. Gated SPECT images were also obtained. COMPARISON: None. FINDINGS: There is no definite reversible or fixed perfusion abnormality to suggest ischemia or infar ction. There is normal left ventricular chamber size, wall motion and ejection fraction. Left ventr icular ejection fraction measures >70%. IMPRESSION: 1. Normal myocardial perfusion at rest and during stress. 2. Left ventricular ejection fraction measuring >70%. Reviewed, dictated and finalized at location A.
== END 2022-12-09 10:31 | disposition home or self-care (01) ==
PROVIDERS: PCP Emergency Medicine; Visit Provider Internal Medicine Critical Care Medicine
DX: R06.09 Other forms of dyspnea (principal)
CPT/HCPCS: 78452; 93017; A9502; J2785

== ENCOUNTER → 2023-01-05 13:35 | Outpatient (CLI) | payer OTHER, SELFPAY ==
--- NOTE | ~2023-01-05 | MM_ITS ---
EXAMINATION: MM screening [facility] BI w eloina HISTORY: Screening TECHNIQUE: Craniocaudal and mediolateral oblique 3-D tomosynthesis images were obtained and synthetic 2-D images were generated. CAD analysis was submitted and interpreted. COMPARISON: Comparison to multiple prior studies sequentially, with oldest reviewed study dated 10/2015. BREAST PARENCHYMAL COMPOSITION: There are scattered areas of fibroglandular density. FINDINGS: There is no evidence of suspicious mass, calcification, or architectural distortion to sugg est malignancy in either breast. There has been no suspicious interval change. IMPRESSION: 1. No mammographic evidence of malignancy. 2. Recommend routine screening mammography in one year. BI-RADS Category 1: Negative Reviewed, dictated and finalized at location A.
== END ==
PROVIDERS: PCP Emergency Medicine; Visit Provider Emergency Medicine
DX: Z12.31 Encounter for screening mammogram for malignant neoplasm of breast (principal)
CPT/HCPCS: 77063; 77067

== ENCOUNTER 2023-03-26 19:49 | Observation (INO) | payer OTHER, SELFPAY ==
--- NOTE | ~2023-03-26 | XR_ITS ---
EXAMINATION: XR chest 1V portable DATE: 03/26/2023 20:44 INDICATION: Cough and shortness of breath. TECHNIQUE: A single frontal view of the chest was obtained. COMPARISON: Chest 2 views 01/09/2022, chest CT 02/25/2022 FINDINGS: There is chronic volume loss of right hemithorax. There are diffuse chronic coarse intersti tial opacities in the lungs. There are chronic airspace opacities in all right lung zones with a arturo pheral predominance. No pleural effusion or pneumothorax. The heart size is normal. Surgical clips ov erlie right axilla. IMPRESSION: 1. Stable chronic interstitial lung disease. Reviewed, dictated and finalized at location E. [employer]
[2023-03-26 19:24] VITALS: BP 92/61; PULSE 111; RESP 18; TEMP 36.3; O2SAT 99
[2023-03-26 19:30] VITALS: BP 117/66; PULSE 76; RESP 24; TEMP 36.2; O2SAT 100
--- NOTE | 2023-03-26 19:30 | ECG_ITS ---
Measurements Intervals [place] Rate: 90 P: -90 WI: 188 QRS: -66 QRSD: 78 T: 33 QT: 354 QTc: 435 Interpretive Statements SINUS RHYTHM WITH FIRST DEGREE AV BLOCK LEFT AXIS DEVIATION INFERIOR INFARCT, AGE INDETERMINATE POOR R WAVE PROGRESSION, CONSIDER ANTEROLATERAL INFARCT BASELINE ARTIFACT- I, II, III, AVR, AVL, V1 ABNORMAL ECG COMPARED TO ECG 11/24/2021 09:05:37 FIRST DEGREE AV BLOCK NOW PRESENT Electronically Signed On 03-26-2023 19:45:00 LUNG PULLER by Sherif Dinh D.O.
[2023-03-26 19:56] LABS: Basophils Percent Auto 0.2 % (0.2-1.2); Eosinophils Percent Auto 0.1 % (0-4.4); Hematocrit 41.6 % (37.0-47.0); Hemoglobin 13.4 g/dL (12.0-15.0); Immature Granulocyte Absolute 0.09 K/mm3 (0.00-0.031); Immature Granulocyte Percent A 0.6 % (0-0.5); Lymphocytes Absolute Auto 0.56 K/mm3 (0.9-3.2); Lymphocytes Percent Auto 3.5 % (18.3-44.2); Mean Corpuscular HGB Conc 32.2 g/dl (32-36); Mean Corpuscular Hemoglobin 31.8 pg (26-34); Mean Corpuscular Volume 98.8 fl (80-100); Monocytes Absolute Auto 1.1 K/mm3 (0.1-0.6); Neutrophils Absolute Auto 14.1 K/mm3 (1.3-6.7); Neutrophils Percent Auto 88.6 % (45.5-73.1); Platelet Count Result 129 k/mm3 (150-375); Red Blood Count 4.21 M/mm3 (4.2-5.4); Red Cell Distribution Width 15.7 % (11.5-14.5); White Blood Count 15.9 K/mm3 (4.5-10.0)
[2023-03-26 20:09] LABS: Alanine Aminotransferase 15 U/L (6-35); Albumin Level 3.5 g/dL (3.5-5.1); Alkaline Phosphatase 85 U/L (38-126); Anion Gap 5 mmol/L (8-16); Aspartate Amino Transferase 30 U/L (14-36); Bilirubin,Total 0.6 mg/dL (0.2-1.3); Blood Urea Nitrogen 20 mg/dL (7-17); Calcium 8.7 mg/dL (8.4-10.2); Carbon Dioxide 31 mmol/L (22-30); Chloride 105 mmol/L (98-107); Estimated CRCL calculation 28 ml/min; Estimated Glomerular Filt Rate 53; Glucose 147 mg/dL (65-110); Potassium 4.6 mmol/L (3.4-5.0); Sodium 141 mmol/L (137-145)
[2023-03-26] MEDS: SODIUM CHLORIDE 0.9% IV 1,000 ML 999 ML IV CONT (20:37)
[2023-03-26 20:38] VITALS: BP 108/69; PULSE 88; RESP 24; O2SAT 99
[2023-03-26 20:42] LABS: Partial Thromboplastin Time 25.9 SECONDS (22.3-36.8); Prothrombin Time 13.8 Seconds (11.1-14.7)
[2023-03-26 20:51] LABS: NT Pro B Type Natriuretic Pept 905 pg/mL (19.9-100); Troponin I < 0.012 ng/mL (0.000-0.034)
--- NOTE | 2023-03-26 21:33 | ED.WEAKNESS ---
HPI - Weakness General Chief complaint: Weakness Stated complaint: NEAR SYNCOPE, WEAK, COVID+ History of Present Illness HPI Narrative: Patient is an 82-year-old female with history of COPD on 2 L baseline presenting with weakness. Patient and her tested positive for COVID-19 last week. States that she has been doing well in regards to her URI symptoms. She has unfortunately been feeling increasingly weak. States that she has chronic balance problems and often uses a walker. Today she fell because she felt lightheaded and then tripped over her shoes. Her states that she then napped for approximately 4 hours. When she got up she again nearly fainted. States that she did have several episodes of emesis as well as diarrhea over the last couple of days. She has not been drinking many fluids. she denies chest pain, worsening shortness of breath, fevers, leg swelling, abdominal pain, numbness or weakness. Related Data Home Medications Medication Instructions Recorded Confirmed calcium carbonate 600 mg calcium 600 mg PO DAILY 09/20/19 03/27/23 (1,500 mg) tablet (Calcium) fish oil-dha-epa 1,200 mg-144 1 cap PO DAILY 09/20/19 03/27/23 mg-216 mg capsule cholecalciferol (vitamin D3) 25 25 mcg PO DAILY 03/28/20 03/27/23 mcg (1,000 unit) capsule omeprazole 20 mg capsule,delayed See Rx Instructions PO DAILY 03/28/20 03/27/23 release oxybutynin chloride 15 mg 15 mg PO DAILY 03/28/20 03/27/23 tablet,extended release 24 hr albuterol sulfate 90 mcg/actuation 1 inh inhalation Q4H 03/26/21 03/27/23 aerosol inhaler azathioprine 50 mg tablet 50 mg PO BID 11/17/22 03/27/23 vitamin B complex (B 1 tablet PO DAILY 11/17/22 03/27/23 Complex-Vitamin B12 tablet) coenzyme Q10 30 mg capsule 30 mg PO DAILY 03/27/23 03/27/23 docusate sodium 50 mg capsule 50 mg PO BID 03/27/23 03/27/23 fluticasone fur. 100 mcg-umeclid 1 inh inhalation QAM 03/27/23 03/27/23 62.5 mcg-vilant 25 mcg inhalat.powder (Trelegy Ellipta) krill oil 500 mg capsule 500 mg PO DAILY 03/27/23 03/27/23 Allergies Allergy/AdvReac Type Severity Reaction Status Date / Time fluticasone [From Flonase] Allergy Intermediate Diarrhea Verified 03/06/23 09:23 tetanus toxoid, adsorbed Allergy Intermediate SWELLING/HI Verified 03/06/23 09:23 VES bacitracin Allergy Unknown unknown Verified 03/06/23 09:23 polymyxin B Allergy Unknown unknown Verified 03/06/23 09:23 Tetanus Vaccines and Toxoid Allergy Unknown unknown Verified 03/06/23 09:23 lidocaine AdvReac Intermediate DIARRHEA Verified 03/06/23 09:23 neomycin AdvReac Intermediate SKIN Verified 03/06/23 09:23 IRRITATION pramoxine AdvReac Intermediate SKIN Verified 03/06/23 09:23 IRRITATION Review of Systems Review of Systems: All systems reviewed & are unremarkable except as noted in HPI and below PMFSH Past Medical History Medical History NICHOLAS positive (07/2020) Bilateral foot pain Breast cancer Cataracts, bilateral Cellulitis of left foot Cerumen debris on tympanic membrane of right ear Chronic interstitial lung disease Chronic kidney disease Chronic respiratory failure with hypoxia, on home oxygen therapy CMC arthritis, thumb, degenerative Counseling on health promotion and disease prevention Depression Encounter for medication management Essential tremor Former smoker Generalized osteoarthritis of multiple sites Greater trochanteric bursitis of right hip Jackson neuroma (1992) Mumps Night sweats Obstructive sleep apnea on CPAP Osteoporosis Other screening mammogram Overactive bladder Pain in left shoulder Post-menopausal Post-menopausal Pulmonary nodules Right shoulder pain Screening cholesterol level Skin lesion of back Surgical History Surgical History History of ankle surgery ORIF right ankle fracture. History of appendectomy History of lumpectomy of
[2023-03-26 21:38] LABS: Influenza A QL RT-PCR Negative (Negative); Influenza B QL RT-PCR Negative (Negative); RSV RNA, RT-PCR Negative (Negative); SARS-CoV-2 RNA PCR Negative (Negative)
[2023-03-26 22:16] VITALS: BP 108/73; PULSE 89; RESP 28; O2SAT 98
[2023-03-26 22:21] LABS: Appearance Urine Cloudy (Clear); Bacteria Urine 4+ /hpf; Bilirubin Urine Negative (Negative); Blood Urine Negative (Negative); Color Urine Dark Yellow (Yellow); Glucose Urine UA Negative (Negative); Ketones Urine Negative (Negative); Leukocyte Esterase Ur 1+ LEU/UL (Negative); Nitrate Urine Negative (Negative); Non Pathogenic Casts 0-2; Protein Urine Negative (Negative); RBC Urine 0-2 /hpf (0-2); Specific Grav Ur 1.013 (1.001-1.035); Squamous Epithelial Cell Urine Few /hpf (Few); Urobilinogen Urine 0.2 mg/dL (<2.0)
[2023-03-26 22:22] LABS: Add Urine Microscopic? YES
[2023-03-26] MEDS: cefTRIAXone 2 GM/NS 100 ML 2 GM/100 ML BAG IVPB (22:41)
[2023-03-26 23:37] LABS: Troponin I < 0.012 ng/mL (0.000-0.034)
[2023-03-27] VITALS (18 sets, daily range): BP systolic 93–130; BP diastolic 45–111; PULSE 64–116; RESP 16–22; TEMP 36.4–37.4; O2SAT 93–100; BMI 23.7
--- NOTE | 2023-03-27 01:03 | ADMGEN ---
This patient, Ladonna Rosa, was admitted to [facility] Surg Room 328-01. Patient/family oriented to hospital policies and general routines including ID bracelet, bed and alarms, visiting hours, pain management, procedures, bathroom and other care routines, personal items, smoking policy, room service/diet, and visiting hours. Information on how to activate the Rapid Response Team has been discussed. Patient/Family are encouraged to report perceived risks to care and to ask questions if they do not understand what they are told or what they should do.
[2023-03-27] MEDS: IPRATROPIUM BR 0.02% INH SOLN 0.5 MG/2.5 ML VIAL INHALATION ×3 (02:54→13:16)
[2023-03-27] MEDS: ALBUTEROL SULFATE NEB 2.5 MG/3 ML INH INHALATION ×3 (02:54→13:16)
[2023-03-27 02:59] LABS: Troponin I < 0.012 ng/mL (0.000-0.034)
--- NOTE | 2023-03-27 10:09 | PM.IMHP ---
H&P: HPI History of Present Illness Date/Time: 03/27/23 10:09 Chief Complaint: Tripped at home/near syncope/weakness Narrative: Patient is a 82-year old female who presented to the emergency room via EMS with complaints of fall. Patient reported she was recently recovering from COVID-19 and had finished her final dose of Paxlovid. Overall, patient stated she had mild nausea and generalized weakness with COVID infection. Patient stated while walking with her walker she tripped over her own feet but at beside reported she had AMS when he attempted to help her up. stated patient then slept the whole day with no oral intake other then a cup of coffee. Patient then attempted to ambulate with walker and was to weak. called EMS do to new onset weakness and AMS. In the emergency department patient was found to have leukocytosis of 15.9 and urinalysis did show leukocytosis + with bacteria. Troponin was negative, Pro BNP mildly elevated, EKG with ST 1 degree block, and CXR with chronic opacities. Patient BP soft and SPO2 of 98% on 2LNC baseline with home oxygen. Patient was given 1L NS and ceftriaxone 2gram in the ED with continued generalized weakness. Patient denied CP, SOB, dizziness, fever, chills, vision changes. Patient did report urine frequency with no dysuria but does have a HX of overactive bladder. Patient was admitted to the telemetry unit for further evaluation and treatment of UTI, generalized weakness, and near syncope. Patient did have recent Cardiac cath 01/2023 that showed mild pulmonary HTN otherwise unremarkable. Will continue with IV ABX for UTI pending cultures, IV Fluids, orthostatic BP, and have PT evaluate. Review of Systems Review of Systems: All systems reviewed & are unremarkable except as noted in HPI and below PMFSH Past Medical History Medical History NICHOLAS positive (07/2020) Bilateral foot pain Breast cancer Cataracts, bilateral Cellulitis of left foot Cerumen debris on tympanic membrane of right ear Chronic interstitial lung disease Chronic kidney disease Chronic respiratory failure with hypoxia, on home oxygen therapy CMC arthritis, thumb, degenerative Counseling on health promotion and disease prevention Depression Encounter for medication management Essential tremor Former smoker Generalized osteoarthritis of multiple sites Greater trochanteric bursitis of right hip Jackson neuroma (1992) Mumps Night sweats Obstructive sleep apnea on CPAP Osteoporosis Other screening mammogram Overactive bladder Pain in left shoulder Post-menopausal Post-menopausal Pulmonary nodules Right shoulder pain Screening cholesterol level Skin lesion of back Surgical History Surgical History History of ankle surgery ORIF right ankle fracture. History of appendectomy History of lumpectomy of right breast (1985) History of rotator cuff surgery History of tonsillectomy (1952) History of total hysterectomy (1970) Family History Family History Father , 61 Heart failure Arthritis Pneumonia Mother , GI Bleed GI bleed Social History Social History Social History: Surrogate medical decision maker: Brice Rosa, . Code status: Full code. Smoking packs per day: 1 Smoking cigarettes per day: 20.0 Years smoked: 17 Smoking pack-years: 17.00 Smoking status: Former smoker Alcohol intake: never Substance use: never Do You Feel Safe in your Home?: Yes Lack of Transportation: No Lack of Food: Never True Current Housing: I Have Housing Concerned About Future Housing: No Difficulty Paying Gas/Electric Bills: No Difficulty Paying for Meds: No Currently Unemployed: No Education: Trade/Vocational Certif
[2023-03-27 11:29] LABS: Hematocrit 40.6 % (37.0-47.0); Hemoglobin 12.7 g/dL (12.0-15.0); Mean Corpuscular HGB Conc 31.3 g/dl (32-36); Mean Corpuscular Hemoglobin 31.8 pg (26-34); Mean Corpuscular Volume 101.8 fl (80-100); Mean Platelet Volume 11.7 fl (7.4-10.4); Platelet Count Result 172 k/mm3 (150-375); Red Blood Count 3.99 M/mm3 (4.2-5.4); Red Cell Distribution Width 15.9 % (11.5-14.5); White Blood Count 15.2 K/mm3 (4.5-10.0)
[2023-03-27] MEDS: CHOLECALCIFEROL 1,000 UNITS TABLET 1000 UNITS PO (11:31)
[2023-03-27] MEDS: GABAPENTIN 100 MG CAPSULE PO ×2 (11:31→16:06)
[2023-03-27] MEDS: SODIUM CHLORIDE 0.9% IV 1,000 ML 100 ML IV CONT ×2 (11:31→20:25)
[2023-03-27] MEDS: VITAMIN B COMPLEX CAPSULE 1 CAP PO (11:32)
[2023-03-27 11:37] LABS: Anion Gap 8 mmol/L (8-16); Blood Urea Nitrogen 15 mg/dL (7-17); Calcium 8.4 mg/dL (8.4-10.2); Carbon Dioxide 27 mmol/L (22-30); Chloride 105 mmol/L (98-107); Estimated CRCL calculation 31 ml/min; Estimated Glomerular Filt Rate 60; Glucose 99 mg/dL (65-110); Potassium 4.7 mmol/L (3.4-5.0); Sodium 140 mmol/L (137-145)
--- NOTE | 2023-03-27 15:35 | ECG_ITS ---
Measurements Intervals [place] Rate: 78 P: 53 DE: 188 QRS: -44 QRSD: 85 T: 1 QT: 342 QTc: 390 Interpretive Statements SINUS RHYTHM SUPRAVENTRICULAR BIGEMINY LEFT AXIS DEVIATION POOR R WAVE PROGRESSION, CONSIDER ANTERIOR INFARCT CONSIDER INFERIOR INFARCT, AGE INDETERMINATE ABNORMAL ECG COMPARED TO ECG 03/26/2023 19:37:34 SUPRAVENTRICULAR BIGEMINY NOW PRESENT Electronically Signed On 03-27-2023 16:10:51 ORDNANCE TRUCK INSTALLATION SUPERVISOR by Sherif Dinh D.O.
[2023-03-27] MEDS: azaTHIOprine 50 MG TABLET PO (16:06)
[2023-03-27] MEDS: WATER FOR IRRIGATION, STERILE 1,000 ML BOTTLE 1000 ML (19:36)
[2023-03-27] MEDS: DOCUSATE SODIUM 100 MG CAPSULE PO (20:25)
[2023-03-28] VITALS (14 sets, daily range): BP systolic 98–117; BP diastolic 45–70; PULSE 75–97; RESP 16–28; TEMP 36.1–36.7; O2SAT 92–97
[2023-03-28] MEDS: SODIUM CHLORIDE 0.9% IV 1,000 ML 100 ML IV CONT ×2 (06:17→08:54)
[2023-03-28 07:04] LABS: Hematocrit 34.2 % (37.0-47.0); Hemoglobin 11.2 g/dL (12.0-15.0); Immature Platelet Fraction Pct 2.3 % (0.9-11.2); Mean Corpuscular HGB Conc 32.7 g/dl (32-36); Mean Corpuscular Hemoglobin 32.1 pg (26-34); Mean Platelet Volume 12.6 fl (7.4-10.4); Platelet Count Result 211 k/mm3 (150-375); Red Blood Count 3.49 M/mm3 (4.2-5.4); Red Cell Distribution Width 15.8 % (11.5-14.5); White Blood Count 10.6 K/mm3 (4.5-10.0)
[2023-03-28 07:16] LABS: Anion Gap 7 mmol/L (8-16); Blood Urea Nitrogen 12 mg/dL (7-17); Calcium 7.9 mg/dL (8.4-10.2); Carbon Dioxide 24 mmol/L (22-30); Chloride 110 mmol/L (98-107); Estimated CRCL calculation 40 ml/min; Estimated Glomerular Filt Rate > 60; Glucose 100 mg/dL (65-110); Potassium 4.1 mmol/L (3.4-5.0); Sodium 141 mmol/L (137-145)
[2023-03-28] MEDS: FLUTICASONE/UMECLIDIN/VILANTER 100-62.5-25 MCG ELLIPTA 1 PUFF INHALATION (08:38)
[2023-03-28] MEDS: ALBUTEROL SULFATE NEB 2.5 MG/3 ML INH INHALATION ×3 (08:38→20:12)
[2023-03-28] MEDS: IPRATROPIUM BR 0.02% INH SOLN 0.5 MG/2.5 ML VIAL INHALATION ×3 (08:38→20:12)
[2023-03-28] MEDS: CALCIUM CARBONATE (TUMS) 500 MG (200 MG ELEMENTAL) 600 MG BY MOUTH (08:55)
[2023-03-28] MEDS: oxyBUTYnin CHLORIDE XL 5 MG TAB.ER.24 15 MG PO (08:56)
[2023-03-28] MEDS: ACETAMINOPHEN 325 MG TABLET 650 MG PO ×2 (08:56→17:31)
[2023-03-28] MEDS: GABAPENTIN 100 MG CAPSULE PO ×3 (08:56→17:32)
[2023-03-28] MEDS: PANTOPRAZOLE 40 MG TABLET PO (08:56)
[2023-03-28] MEDS: VITAMIN B COMPLEX CAPSULE 1 CAP PO (08:56)
[2023-03-28] MEDS: DOCUSATE SODIUM 100 MG CAPSULE PO ×2 (08:56→20:51)
[2023-03-28] MEDS: azaTHIOprine 50 MG TABLET PO ×2 (08:56→17:32)
[2023-03-28] MEDS: SERTRALINE HCL 50 MG TABLET PO (08:57)
[2023-03-28] MEDS: CHOLECALCIFEROL 1,000 UNITS TABLET 1000 UNITS PO (08:57)
--- NOTE | 2023-03-28 16:39 | PM.IMPN ---
Progress Note: A&P Assessment and Plan (1) Accident due to mechanical fall without injury: Qualifiers: Encounter type: initial encounter Qualified Code(s): W19.XXXA - Unspecified fall, initial encounter Code(s): W19.XXXA - Unspecified fall, initial encounter Status: Acute Assessment and Plan: Patient has been feeling weak. She tripped when using a walker falling to her knees. She did not sustain any injury. PT OT. (2) Generalized weakness: Code(s): R53.1 - Weakness Status: Acute Assessment and Plan: As above (3) Chronic respiratory failure with hypoxia, on home oxygen therapy: Code(s): J96.11 - Chronic respiratory failure with hypoxia; Z99.81 - Dependence on supplemental oxygen Status: Chronic Assessment and Plan: Patient with chronic respiratory failure on 0 2 at 2 L nasal cannula while awake. She has sleep apnea wears BiPAP at night with 3 L O2 bleed in. She is stable on her 2 L. Continue the same. (4) Near syncope: Code(s): R55 - Syncope and collapse Status: Acute Assessment and Plan: Patient was not orthostatic on admission. Her systolic blood pressure was 111 supine and 130 standing. She is still lightheaded when she stands however. Will repeat orthostatics. Positive fluid balance so will stop IV fluids. (5) UTI (urinary tract infection): Code(s): N39.0 - Urinary tract infection, site not specified Status: Acute Assessment and Plan: UA is consistent with UTI. UCx collected. Rocephin started. UCx negative. Will stop IV antibiotics (6) Chronic obstructive pulmonary disease: Qualifiers: COPD type: unspecified COPD Qualified Code(s): J44.9 - Chronic obstructive pulmonary disease, unspecified Code(s): J44.9 - Chronic obstructive pulmonary disease, unspecified Status: Acute Assessment and Plan: As above. (7) CKD (chronic kidney disease), stage III: Qualifiers: Chronic kidney disease stage 3 subtype: stage 3b (GFR 30-44) Qualified Code(s): N18.32 - Chronic kidney disease, stage 3b Code(s): N18.30 - Chronic kidney disease, stage 3 unspecified Status: Acute Assessment and Plan: BUN and creatinine are normal. Estimated creatinine clearance is 40. Okay to stop IV fluids Plan Code status -full DVT prophylaxis -SCDs Subjective Date/time seen: 03/28/23 16:39 Interval history: 82yo female with chronic resp failure on 2L, recent COVID infection on Paxlovid, ILD, CKD and GABBY on BiPAP and 3L O2 here for weakness and near syncope.? Feels well. Still lightheaded with standing but able to walk in room today with therapy. eating okay. slight nausea Exam Narrative: AF 97.7 117/46 75 18 97% 3L Gen - NARD Chest - dry inspiratory crackles mid and lower lung wallace. nml RR CV - RRR S1/S2 Abd - Soft, ND, NT, +BS Ext - No pedal edema Psych - Nml mood and affect Skin - Warm and dry Objective Data Vital Signs Vital Signs: Vital Signs - 24 hr 03/27/23 22:23 03/27/23 20:00 03/28/23 00:00 Temperature 99.3 F 98.1 F Pulse Rate 69 82 94 Respiratory Rate 20 20 Blood Pressure 109/54 L 98/45 L Pulse Oximetry 96 93 95 Oxygen Delivery Autopap Oxygen Flow Rate 03/28/23 04:00 03/28/23 07:51 03/28/23 08:40 Temperature 97.7 F 96.9 F L Pulse Rate 85 76 88 Respiratory Rate 16 16 18 Blood Pressure 112/51 L 105/70 Pulse Oximetry 97 97 Oxygen Delivery Oxygen Flow Rate 03/28/23 08:41 03/28/23 08:50 03/28/23 09:18 Temperature Pulse Rate 80 Respiratory Rate 18 Blood Pressure Pulse Oximetry 92 Oxygen Delivery Nasal Cannula Nasal Cannula Oxygen Flow Rate 2 2 03/28/23 09:37 03/28/23 12:00 03/28/23 14:08 Temperature 97.0 F L Pulse Rate 79 83 Respiratory Rate 16 18 Blood Pressure 99/57 L Pulse Oximetry 96 Oxygen Delivery Nasal Cannula Oxygen Flow Rate 3
[2023-03-29] VITALS (17 sets, daily range): BP systolic 99–133; BP diastolic 37–67; PULSE 61–98; RESP 12–28; TEMP 36.1–36.7; O2SAT 91–100
[2023-03-29 06:30] LABS: Hematocrit 32.5 % (37.0-47.0); Hemoglobin 10.2 g/dL (12.0-15.0); Mean Corpuscular HGB Conc 31.4 g/dl (32-36); Mean Corpuscular Hemoglobin 32.1 pg (26-34); Mean Corpuscular Volume 102.2 fl (80-100); Mean Platelet Volume 11.2 fl (7.4-10.4); Platelet Count Result 151 k/mm3 (150-375); Red Blood Count 3.18 M/mm3 (4.2-5.4); Red Cell Distribution Width 15.8 % (11.5-14.5); White Blood Count 7.8 K/mm3 (4.5-10.0)
[2023-03-29 06:43] LABS: Anion Gap 4 mmol/L (8-16); Blood Urea Nitrogen 15 mg/dL (7-17); Carbon Dioxide 25 mmol/L (22-30); Chloride 111 mmol/L (98-107); Estimated CRCL calculation 40 ml/min; Potassium 4.3 mmol/L (3.4-5.0); Sodium 140 mmol/L (137-145)
[2023-03-29 06:44] LABS: Calcium 8.3 mg/dL (8.4-10.2); Estimated Glomerular Filt Rate > 60; Glucose 97 mg/dL (65-110)
[2023-03-29] MEDS: ALBUTEROL SULFATE NEB 2.5 MG/3 ML INH INHALATION ×3 (09:05→21:15)
[2023-03-29] MEDS: FLUTICASONE/UMECLIDIN/VILANTER 100-62.5-25 MCG ELLIPTA 1 PUFF INHALATION (09:06)
[2023-03-29] MEDS: IPRATROPIUM BR 0.02% INH SOLN 0.5 MG/2.5 ML VIAL INHALATION ×3 (09:06→21:15)
[2023-03-29] MEDS: CALCIUM CARBONATE (TUMS) 500 MG (200 MG ELEMENTAL) 600 MG BY MOUTH (09:11)
[2023-03-29] MEDS: ACETAMINOPHEN 325 MG TABLET 650 MG PO (09:13)
[2023-03-29] MEDS: SERTRALINE HCL 50 MG TABLET PO (09:14)
[2023-03-29] MEDS: PANTOPRAZOLE 40 MG TABLET PO (09:14)
[2023-03-29] MEDS: GABAPENTIN 100 MG CAPSULE PO ×3 (09:14→17:50)
[2023-03-29] MEDS: DOCUSATE SODIUM 100 MG CAPSULE PO ×2 (09:14→21:04)
[2023-03-29] MEDS: CHOLECALCIFEROL 1,000 UNITS TABLET 1000 UNITS PO (09:14)
[2023-03-29] MEDS: azaTHIOprine 50 MG TABLET PO ×2 (09:14→17:50)
[2023-03-29] MEDS: oxyBUTYnin CHLORIDE XL 5 MG TAB.ER.24 15 MG PO (09:14)
[2023-03-29] MEDS: VITAMIN B COMPLEX CAPSULE 1 CAP PO (09:16)
--- NOTE | 2023-03-29 16:31 | PM.IMPN ---
Progress Note: A&P Assessment and Plan (1) Accident due to mechanical fall without injury: Qualifiers: Encounter type: initial encounter Qualified Code(s): W19.XXXA - Unspecified fall, initial encounter Code(s): W19.XXXA - Unspecified fall, initial encounter Status: Acute Assessment and Plan: Patient has been feeling weak. She tripped when using a walker falling to her knees. She did not sustain any injury. Continue PT/OT. (2) Generalized weakness: Code(s): R53.1 - Weakness Status: Acute Assessment and Plan: As above (3) Chronic respiratory failure with hypoxia, on home oxygen therapy: Code(s): J96.11 - Chronic respiratory failure with hypoxia; Z99.81 - Dependence on supplemental oxygen Status: Chronic Assessment and Plan: Patient with chronic respiratory failure on 02 at 2 L nasal cannula while awake. She has sleep apnea wears BiPAP at night with 3 L O2 bleed in. She is stable on her 2 L. Continue the same. (4) Near syncope: Code(s): R55 - Syncope and collapse Status: Acute Assessment and Plan: Patient was not orthostatic on admission. Her systolic blood pressure was 111 supine and 130 standing. Lightheaded better but still occurring when walking. Will repeat orthostatic vital signs. IV fluids are off now (5) Chronic obstructive pulmonary disease: Qualifiers: COPD type: unspecified COPD Qualified Code(s): J44.9 - Chronic obstructive pulmonary disease, unspecified Code(s): J44.9 - Chronic obstructive pulmonary disease, unspecified Status: Acute Assessment and Plan: As above. (6) CKD (chronic kidney disease), stage III: Qualifiers: Chronic kidney disease stage 3 subtype: stage 3b (GFR 30-44) Qualified Code(s): N18.32 - Chronic kidney disease, stage 3b Code(s): N18.30 - Chronic kidney disease, stage 3 unspecified Status: Acute Assessment and Plan: BUN and creatinine are normal. Estimated creatinine clearance is 40. Follow (7) UTI (urinary tract infection): Code(s): N39.0 - Urinary tract infection, site not specified Status: Acute Assessment and Plan: UA is consistent with UTI. UCx collected. Rocephin started. UCx negative. Will stop IV antibiotics UTI ruled out Plan Code status -full DVT prophylaxis -SCDs Subjective Date/time seen: 03/29/23 16:31 Interval history: 82yo female with chronic resp failure on 2L, recent COVID infection on Paxlovid, ILD, CKD and GABBY on BiPAP and 3L O2 here for weakness and near syncope.? Patient slept well. no CP. Lightheaded when up walking to the bathroom. No CP or SOB. Up to the chair today. Still with lower abdominal pain. No BM since Thursday. No problems overnight. Nausea last night bur better today No problems eating today. Exam Narrative: AF 97.8 115/65 70 16 93% 2L Gen - NARD Chest - dry inspiratory crackles bilateral mid and lower lung wallace. nml RR CV - RRR S1/S2 Abd - Soft, ND, NT, +BS Ext - No pedal edema Psych - Nml mood and affect Skin - Warm and dry Objective Data Vital Signs Vital Signs: Vital Signs - 24 hr 03/28/23 20:13 03/28/23 20:18 03/28/23 20:26 Temperature Pulse Rate 77 77 79 Respiratory Rate 18 18 Blood Pressure Pulse Oximetry 93 Oxygen Delivery Nasal Cannula Oxygen Flow Rate 2 03/28/23 19:51 03/28/23 19:51 03/28/23 19:51 Temperature 97.6 F 97.6 F 97.6 F Pulse Rate 79 95 97 Respiratory Rate 18 20 28 H Blood Pressure 114/54 L 114/56 L 113/54 L Pulse Oximetry 94 92 93 Oxygen Delivery Oxygen Flow Rate 03/29/23 01:15 03/28/23 22:10 03/29/23 03:30 Temperature 97.3 F L Pulse Rate 74 78 71 Respiratory Rate 20 Blood Pressure 133/67 Pulse Oximetry 100 97 98 Oxygen Delivery Autopap Autopap Oxygen Flow Rate 03/29/23 05:05 03/29/23 09:06 03/29/23 09:09 Temperature 97.5 F L Puls
[2023-03-29] MEDS: polyethylene glycoL 3350 17 GM POWD.PACK PO (17:50)
[2023-03-30] VITALS (9 sets, daily range): BP systolic 91–112; BP diastolic 50–64; PULSE 73–106; RESP 15–20; TEMP 36.1–37.2; O2SAT 90–98
[2023-03-30] MEDS: ALBUTEROL SULFATE NEB 2.5 MG/3 ML INH INHALATION ×2 (03:28→10:01)
[2023-03-30] MEDS: IPRATROPIUM BR 0.02% INH SOLN 0.5 MG/2.5 ML VIAL INHALATION ×2 (03:28→10:01)
[2023-03-30 06:37] LABS: Hematocrit 32.7 % (37.0-47.0); Hemoglobin 10.5 g/dL (12.0-15.0); Mean Corpuscular HGB Conc 32.1 g/dl (32-36); Mean Corpuscular Hemoglobin 31.5 pg (26-34); Mean Corpuscular Volume 98.2 fl (80-100); Mean Platelet Volume 11.9 fl (7.4-10.4); Platelet Count Result 152 k/mm3 (150-375); Red Blood Count 3.33 M/mm3 (4.2-5.4); Red Cell Distribution Width 15.7 % (11.5-14.5); White Blood Count 7.2 K/mm3 (4.5-10.0)
[2023-03-30 06:43] LABS: Anion Gap 4 mmol/L (8-16); Blood Urea Nitrogen 19 mg/dL (7-17); Calcium 8.6 mg/dL (8.4-10.2); Carbon Dioxide 29 mmol/L (22-30); Chloride 105 mmol/L (98-107); Estimated CRCL calculation 35 ml/min; Estimated Glomerular Filt Rate > 60; Glucose 106 mg/dL (65-110); Potassium 4.1 mmol/L (3.4-5.0); Sodium 138 mmol/L (137-145)
[2023-03-30] MEDS: CALCIUM CARBONATE (TUMS) 500 MG (200 MG ELEMENTAL) 600 MG BY MOUTH (08:16)
[2023-03-30] MEDS: CHOLECALCIFEROL 1,000 UNITS TABLET 1000 UNITS PO (08:16)
[2023-03-30] MEDS: PANTOPRAZOLE 40 MG TABLET PO (08:16)
[2023-03-30] MEDS: SERTRALINE HCL 50 MG TABLET PO (08:16)
[2023-03-30] MEDS: polyethylene glycoL 3350 17 GM POWD.PACK PO (08:16)
[2023-03-30] MEDS: DOCUSATE SODIUM 100 MG CAPSULE PO (08:17)
[2023-03-30] MEDS: GABAPENTIN 100 MG CAPSULE PO ×2 (08:17→13:13)
[2023-03-30] MEDS: VITAMIN B COMPLEX CAPSULE 1 CAP PO (08:17)
[2023-03-30] MEDS: oxyBUTYnin CHLORIDE XL 5 MG TAB.ER.24 15 MG PO (08:17)
[2023-03-30] MEDS: azaTHIOprine 50 MG TABLET PO (08:17)
[2023-03-30] MEDS: FLUTICASONE/UMECLIDIN/VILANTER 100-62.5-25 MCG ELLIPTA 1 PUFF INHALATION (10:01)
--- NOTE | 2023-03-30 12:47 | PM.DS ---
DS: Admitting Diagnosis Discharge Date 03/30/23 Admitting Diagnosis Weakness DS: Discharge Diagnosis Discharge Diagnosis (1) Accident due to mechanical fall without injury: Qualifiers: Encounter type: initial encounter Qualified Code(s): W19.XXXA - Unspecified fall, initial encounter Code(s): W19.XXXA - Unspecified fall, initial encounter Status: Acute (2) Generalized weakness: Code(s): R53.1 - Weakness Status: Acute (3) Chronic respiratory failure with hypoxia, on home oxygen therapy: Code(s): J96.11 - Chronic respiratory failure with hypoxia; Z99.81 - Dependence on supplemental oxygen Status: Chronic (4) Near syncope: Code(s): R55 - Syncope and collapse Status: Acute (5) Chronic obstructive pulmonary disease: Qualifiers: COPD type: unspecified COPD Qualified Code(s): J44.9 - Chronic obstructive pulmonary disease, unspecified Code(s): J44.9 - Chronic obstructive pulmonary disease, unspecified Status: Acute (6) CKD (chronic kidney disease), stage III: Qualifiers: Chronic kidney disease stage 3 subtype: stage 3b (GFR 30-44) Qualified Code(s): N18.32 - Chronic kidney disease, stage 3b Code(s): N18.30 - Chronic kidney disease, stage 3 unspecified Status: Acute DS: Summary Hospital Course Reason for hospitalization: 82yo female with chronic resp failure on 2L, recent COVID infection on Paxlovid, ILD, CKD and GABBY on BiPAP and 3L O2 here for weakness and near syncope.?Please see H&P for details. Hospital Course: Patient has been feeling weak.? She tripped when using a walker falling to her knees.? She did not sustain any injury. Patient with chronic respiratory failure on 02 at 2 L nasal cannula while awake.? PT/OT started. She has sleep apnea wears BiPAP at night with 3 L O2 bleed in. She remained stable on her O2. UA was concerning for UTI. UCx collected and abx started. UCx negative.?UTI ruled out. BUN and creatinine were normal.? Estimated creatinine clearance was 40. Patient was not orthostatic on admission.? Her systolic blood pressure was 111 supine and 130 standing; repeat was 116 and 102 respectfully.? She was lightheaded when walking at times but this resolved. She has been up ambulating in the halls with therapy. Patient overall did well and was able to be discharged home on 03/30/2023. Status at Discharge Cognitive/behavioral status at discharge: Stable Time Spent with Patient Time attestation: Total time spent providing and/or coordinating discharge services: 32 minutes Time spent: Greater than 30 minutes Exam Narrative: AF 98.9 104/57 106 16 93% 2L Gen - NARD sitting up in a chair Chest - dry inspiratory crackles bilateral mid and lower lung wallace. nml RR CV - RRR S1/S2 Abd - Soft, ND, NT, +BS Ext - No pedal edema Psych - Nml mood and affect Skin - Warm and dry DS: Data Data Completed and Pending Labs on day of discharge: Labs from last 24 hours 03/30/23 06:08 WBC 7.2 RBC 3.33 L Hgb 10.5 L Hct 32.7 L MCV 98.2 MCH 31.5 MCHC 32.1 RDW 15.7 H Plt Count 152 MPV 11.9 H Sodium 138 Potassium 4.1 Chloride 105 Carbon Dioxide 29 Anion Gap 4 L BUN 19 H Creatinine 0.80 Estim Creat Clear Calc 35 Estimated GFR > 60 Glucose 106 Calcium 8.6 Discharge Plan Discharge Attending physician on discharge: Leland Aranda Discharging Clinician: Leland Aranda Anticipated Discharge Date/Time: 03/30/23 12:55 Patient Disposition: Home Health Service Activity: as tolerated Diet: heart healthy Discharge Instructions: Check blood pressure 1 to 2 times a day. Record and bring into your doctor for review. Call your doctor if your blood pressure is greater than 180/110. Continue to wear oxygen at 2 L nasal cannula while awake and 3 L bleed-in with your BiPAP when sleeping. Take precautions to avoid falls. Rise slowl
== END 2023-03-30 14:15 | disposition home health service (06) ==
LOC: ANHED 23:09 → ANH3MEDSUR 03-27 01:06
PROVIDERS: Nurse Practitioner Family; Student in an Organized Health Care Education/Training Program; Admitting Provider Internal Medicine; Emergency Provider Emergency Medicine; PCP Emergency Medicine; Visit Provider Internal Medicine
DX: R53.1 Weakness (principal); W01.0XXA Fall on same level from slipping, tripping and stumbling without subsequent striking against object, initial encounter; J96.11 Chronic respiratory failure with hypoxia; R55 Syncope and collapse; N39.0 Urinary tract infection, site not specified; E86.0 Dehydration; J44.9 Chronic obstructive pulmonary disease, unspecified; N18.32 Chronic kidney disease, stage 3b; R94.31 Abnormal electrocardiogram [ECG] [EKG]; Z99.81 Dependence on supplemental oxygen; Z20.822 Contact with and (suspected) exposure to COVID-19; Z99.89 Dependence on other enabling machines and devices; G47.33 Obstructive sleep apnea (adult) (pediatric); J84.9 Interstitial pulmonary disease, unspecified; F32.A Depression, unspecified; M15.9 Polyosteoarthritis, unspecified; M81.0 Age-related osteoporosis without current pathological fracture; N32.81 Overactive bladder; Z86.16 Personal history of COVID-19; Z87.891 Personal history of nicotine dependence; Z79.51 Long term (current) use of inhaled steroids; Z79.899 Other long term (current) drug therapy; Z82.61 Family history of arthritis
CPT/HCPCS: 36415; 71045; 80048; 80053; 81001; 83880; 84484; 85025; 85027; 85055; 85610; 85730; 87086; 87088; 87637; 93005; 94640; 96361; 96365; 97110; 97161; 97165; 97530; 99285; A9270; G0378; J0696; J7030

== ENCOUNTER 2023-04-10 09:37 | Outpatient (NON) | payer OTHER, SELFPAY | END 2023-04-10 09:38 | disposition home or self-care (01) | PROVIDERS: PCP Emergency Medicine; Visit Provider Urology | DX: J96.11 Chronic respiratory failure with hypoxia (principal); N18.32 Chronic kidney disease, stage 3b; N39.0 Urinary tract infection, site not specified | CPT/HCPCS: 87086; 87147; 87181; 87186 ==

== ENCOUNTER 2023-04-20 12:03 | Emergency (ER) | payer OTHER, SELFPAY ==
[2023-04-20] VITALS (19 sets, daily range): BP systolic 97–124; BP diastolic 55–79; PULSE 57–95; RESP 15–35; TEMP 36.8; O2SAT 86–100
--- NOTE | ~2023-04-20 | XR_ITS ---
EXAMINATION: XR hip BI 2V w AP pelvis DATE: 04/20/2023 15:04 INDICATION: Bilateral hip pain. Fall. TECHNIQUE: An anteroposterior view of the pelvis and 2 views of each hip were obtained. COMPARISON: Pelvis and hip radiographs 09/20/2020, CT abdomen and pelvis 07/09/22 FINDINGS: Bone alignment is normal. No fracture. There is chronic height loss of multiple thoracic ve rtebral bodies. There is mild thoracic spondylosis. There is mild osteoarthritis of the hips. IMPRESSION: 1. Mild osteoarthritis of the hips. Reviewed, dictated and finalized at location A. OWN MACHINE OPERATOR
--- NOTE | ~2023-04-20 | CT_ITS ---
EXAMINATION: CT thoracic spine wo con, CT lumbar spine wo con DATE: 04/20/2023 17:16 INDICATION: trauma, RETRO RECON FROM CAP . TECHNIQUE: Computed tomography (CT) of the thoracic and lumbar spine was performed without intravenou s contrast. The dose-length product was 0.00 mGy-cm. COMPARISON: CTA 07/09/2022 FINDINGS: THORACIC SPINE: T1 is incompletely included within the [id number] of the sagittal reformats. Vertebral body alignm ent intact. Exaggerated thoracic kyphosis. Osteopenia. Multilevel moderate degenerative disc disease. No severe neural foraminal narrowing. Mild stable anterior wedge deformity at T11. Moderate stable a nterior wedge deformity at T12. No severe central canal narrowing or spinal canal mass. Mediastinal a nd bilateral hilar lymphadenopathy. Interstitial lung disease. No traumatic malalignment or fracture of the spine. Acute appearing mildly displaced left posterolateral ninth and mildly displaced or angu lated 10th and 11th posterior rib fractures. LUMBAR SPINE: 5 nonrib-bearing lumbar-type vertebral bodies. Pedicles intact. Normal vertebral body alignment. Mult ilevel mild height loss and superior endplate deformities at L2-L5, stable. Multilevel severe facet a rthropathy with interspinous narrowing. No severe neural foraminal narrowing. Severe central canal na rrowing at L2-3 through L4-5. Multiple splenic hypodensities. IMPRESSION: No acute fracture or traumatic malalignment detected in the thoracic or lumbar spine. Right posterolateral and posterior ninth through 11th rib fractures. 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 Multilevel severe lumbar facet arthropathy. Reviewed, dictated and finalized at location K. STANT TODDLER TEACHER IMPRESSION: No acute fracture or traumatic malalignment detected in the thoracic or lumbar spine. Right posterolateral and posterior ninth through 11th rib fractures. 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 Multilevel severe lumbar facet arthropathy.
--- NOTE | ~2023-04-20 | CT_ITS ---
EXAMINATION: CT chest abdomen pelvis w con DATE: 04/20/2023 16:05 INDICATION: Fall. TECHNIQUE: Computed tomography (CT) of the chest, abdomen, and pelvis was performed with 100 CC Omnip aque 350 intravenous contrast. Automated exposure control and iterative reconstruction technique were employed. Exam dose: 608.29 mGy-cm total exam DLP. COMPARISON: 07/09/2022 CTA abdominal aorta and runoff 07/26/2021 CT chest high resolution FINDINGS: CHEST CT: Prominent diffuse preferentially peripheral interlobular septal soft tissue thickening, honeycombing and traction bronchiectasis with particularly severe involvement of the right upper lobe and right lo wer lobe, suggesting usual interstitial pneumonia type interstitial pulmonary fibrosis. Heart size is within normal range. No pericardial or pleural effusion. No thoracic aortic aneurysm or dissection. Mild hilar and mediastinal lymph node prominence may be re active. ABDOMEN/PELVIS CT: Diffuse hepatic steatosis. No hepatic space-occupying mass lesion is evident. Numerous hypoattenuating small splenic lesions are again noted, also reported on July 09, 2022; diff erential diagnosis includes splenic cysts, hemangiomas, sequela of granulomatous disease, much less l ikely metastases or lymphoma. The gallbladder is present. No color wall thickening or pericholecystic fluid or fat stranding. No bi le duct or pancreatic duct dilatation is evident. No pancreatic mass lesion or calcification is noted . Small sliding hiatal hernia. Duodenal diverticulum. There are numerous diverticula of the left colon; no CT evidence of diverticulitis. No bowel obstruct ion, bowel wall thickening, pneumatosis or intraperitoneal free air. There is atherosclerotic calcification but normal caliber of the abdominal aorta, calcification origi ns of the celiac, superior mesenteric and right renal arteries. No intraperitoneal or retroperitoneal or pelvic mass lesion or adenopathy or ascites. Status post hysterectomy. The urinary bladder is unremarkable. Diffuse osteopenia. Numerous fracture deformities of the thoracic and lumbar spine, including T10, T1 1, to a lesser extent T12 and L1 and moderately prominently involving L2, L3, L4 and L5.. IMPRESSION: Numerous fracture deformities of the lower thoracic and lumbar spine Osteopenia Interstitial pneumonia type pulmonary interstitial fibrosis Hepatic steatosis Multiple splenic hypoattenuating lesions are again noted; see differential diagnosis above Small sliding hiatal hernia Duodenal diverticula Diverticulosis of the left colon; no evidence of diverticulitis Status post hysterectomy Reviewed, dictated and finalized at [facility]. Reviewed, dictated and finalized at [facility]. RINTENDENT IMPRESSION: Numerous fracture deformities of the lower thoracic and lumbar spi ne Osteopenia Interstitial pneumonia type pulmonary interstitial fibrosis Hepatic steatosis Multiple splenic hypoattenuating lesions are again noted; see differential diag nosis above Small sliding hiatal hernia Duodenal diverticula Diverticulosis of the left colon; no evidence of diverticulitis Status post hysterectomy
--- NOTE | 2023-04-20 13:38 | ED.GENADULT ---
HPI - General Adult General Chief complaint: Fall <Minerva Warren July, FRONT MAKER - Last Filed: 04/20/23 13:46> Stated complaint: fall-denies head injury-back and hip pain <Minerva Warren July, FRONT MAKER - Last Filed: 04/20/23 13:46> Time Seen by Provider: 04/20/23 15:34 <Minerva Warren July, FRONT MAKER - Last Filed: 04/20/23 13:46> Focused HPI: 1338 Ladonna Rosa is an 82 y/o female who presents with her and son.- states that pt had a fall last night at around 2200. Patient statetes that she lost her balance and hit the left lower chest wall on the radiator and fell on her right hip, she could not get up on her own got her up and helped her to bed. She is complaining of severe left posterior chest wall pain / right hip pain - denies LOC/ did not hit head and not on any blood thinners - reports she doesn't feel like she can take a deep breath and can barely walk on her own due to her hip pain. GENERAL: Well-appearing, well-nourished, and in no acute distress. HEAD: Normocephalic, atraumatic. CHEST: Clear to auscultation. ?No respiratory distress. HEART: Regular rate and rhythm.? NEURO: ?Alert and oriented x3. Patient screened in triage and initial orders placed.? ?Additional care and disposition to be based upon?diagnostic testing and treatment. <Lazarus Aguillon MD - Last Filed: 04/21/23 07:31> History of Present Illness HPI narrative: Focused HPI: 1338 Ladonna Rosa is an 82 y/o female who presents with her and son.- states that pt had a fall last night at around 2200. Patient statetes that she lost her balance and hit the left lower chest wall on the radiator and fell on her right hip, she could not get up on her own got her up and helped her to bed. She is complaining of severe left posterior chest wall pain / right hip pain - denies LOC/ did not hit head and not on any blood thinners - reports she doesn't feel like she can take a deep breath and can barely walk on her own due to her hip pain. GENERAL: Well-appearing, well-nourished, and in no acute distress. HEAD: Normocephalic, atraumatic. CHEST: Clear to auscultation. ?No respiratory distress. HEART: Regular rate and rhythm.? NEURO: ?Alert and oriented x3. Patient screened in triage and initial orders placed.? ?Additional care and disposition to be based upon?diagnostic testing and treatment. <Minerva Pat APRN - Last Filed: 04/20/23 13:46> 82-year-old female presenting to the emergency department for evaluation after having a ground level fall last night. Patient states she was attempting to change a ways. The patient was walking when she lost her balance and fell landing on her left-sided chest, patient also hurt her right hip. Patient denies striking head denies loss consciousness. Patient does have history underlying lung disease and is normally on 3 L of oxygen at all time. Patient is saturating well her current 3 L. <Lazarus Aguillon MD - Last Filed: 04/21/23 07:31> Related Data Home medications: Home Medications Medication Instructions Recorded Confirmed calcium carbonate 600 mg calcium 600 mg PO DAILY 09/20/19 03/27/23 (1,500 mg) tablet (Calcium) fish oil-dha-epa 1,200 mg-144 1 cap PO DAILY 09/20/19 03/27/23 mg-216 mg capsule cholecalciferol (vitamin D3) 25 25 mcg PO DAILY 03/28/20 03/27/23 mcg (1,000 unit) capsule omeprazole 20 mg capsule,delayed See Rx Instructions PO DAILY 03/28/20 03/27/23 release oxybutynin chloride 15 mg 15 mg PO DAILY 03/28/20 03/27/23 tablet,extended release 24 hr albuterol sulfate 90 mcg/actuation 1 inh inhalation Q4H 03/26/21 03/27/23 aerosol inhaler azathioprine 50 mg tablet 50 mg PO BID 11/17/22 03/27/23 vitamin B complex (B 1 tablet PO DAILY 11/17/22 03/27/23 Complex-Vitamin B12 tablet) coenzyme Q10 30 mg capsule 30 mg PO DAILY 03/27/23 03/27/23 docusate sodium 50 mg capsule 50 mg PO BID 03/27/23 03/27/23 fluticasone fur. 100 mcg-umeclid 1 inh inhalation QAM 03/27/
[2023-04-20] MEDS: ACETAMINOPHEN 500 MG TABLET 1000 MG PO (15:23)
[2023-04-20 15:32] LABS: Basophils Absolute Auto 0.1 K/mm3 (0.0-0.1); Basophils Percent Auto 0.7 % (0.2-1.2); Eosinophils Absolute Auto 0.2 K/mm3 (0-0.3); Hematocrit 37.3 % (37.0-47.0); Hemoglobin 11.9 g/dL (12.0-15.0); Immature Granulocyte Absolute 0.02 K/mm3 (0.00-0.031); Immature Granulocyte Percent A 0.3 % (0-0.5); Lymphocytes Absolute Auto 1.06 K/mm3 (0.9-3.2); Lymphocytes Percent Auto 14.4 % (18.3-44.2); Mean Corpuscular HGB Conc 31.9 g/dl (32-36); Mean Corpuscular Hemoglobin 31.9 pg (26-34); Mean Platelet Volume 11.6 fl (7.4-10.4); Monocytes Absolute Auto 0.9 K/mm3 (0.1-0.6); Monocytes Percent Auto 12.1 % (2.6-8.5); Neutrophils Absolute Auto 5.2 K/mm3 (1.3-6.7); Neutrophils Percent Auto 70.5 % (45.5-73.1); Platelet Count Result 175 k/mm3 (150-375); Red Blood Count 3.73 M/mm3 (4.2-5.4); Red Cell Distribution Width 16.9 % (11.5-14.5); White Blood Count 7.4 K/mm3 (4.5-10.0)
[2023-04-20 15:47] LABS: Alanine Aminotransferase 18 U/L (6-35); Albumin Level 3.6 g/dL (3.5-5.1); Alkaline Phosphatase 75 U/L (38-126); Anion Gap 8 mmol/L (8-16); Aspartate Amino Transferase 37 U/L (14-36); Bilirubin,Total 0.6 mg/dL (0.2-1.3); Blood Urea Nitrogen 20 mg/dL (7-17); Calcium 8.9 mg/dL (8.4-10.2); Carbon Dioxide 30 mmol/L (22-30); Chloride 101 mmol/L (98-107); Estimated CRCL calculation 31 ml/min; Estimated Glomerular Filt Rate 60; Glucose 109 mg/dL (65-110); Potassium 4.3 mmol/L (3.4-5.0); Sodium 139 mmol/L (137-145)
[2023-04-20 16:53] LABS: Appearance Urine Clear (Clear); Bacteria Urine None Seen /hpf; Bilirubin Urine Negative (Negative); Blood Urine Negative (Negative); Color Urine Yellow (Yellow); Glucose Urine UA Negative (Negative); Ketones Urine Negative (Negative); Leukocyte Esterase Ur Trace LEU/UL (Negative); Nitrate Urine Negative (Negative); Non Pathogenic Casts 0-2; Protein Urine Negative (Negative); RBC Urine 0-2 /hpf (0-2); Specific Grav Ur 1.012 (1.001-1.035); Squamous Epithelial Cell Urine None seen /hpf (Few); Urobilinogen Urine 0.2 mg/dL (<2.0); WBC Urine 0-5 /hpf
[2023-04-20 16:56] LABS: Add Urine Microscopic? YES
[2023-04-20] MEDS: traMADol HCL (*CRX) 50 MG TABLET PO (17:29)
== END 2023-04-20 19:19 | disposition home or self-care (01) ==
PROVIDERS: Nurse Practitioner Family; Emergency Provider Emergency Medicine; PCP Emergency Medicine
DX: S22.42XA Multiple fractures of ribs, left side, initial encounter for closed fracture (principal); I12.9 Hypertensive chronic kidney disease with stage 1 through stage 4 chronic kidney disease, or unspecified chronic kidney disease; N18.9 Chronic kidney disease, unspecified; Z85.3 Personal history of malignant neoplasm of breast; Z99.81 Dependence on supplemental oxygen; Z87.891 Personal history of nicotine dependence; W18.30XA Fall on same level, unspecified, initial encounter
CPT/HCPCS: 36415; 71260; 72128; 72131; 73521; 74177; 80053; 81001; 85025; 99284; A9270; Q9967

== ENCOUNTER 2023-12-13 13:51 | Emergency (ER) | payer OTHER, SELFPAY ==
[2023-12-13] VITALS (24 sets, daily range): BP systolic 90–115; BP diastolic 53–84; PULSE 78–116; RESP 18–32; TEMP 36.4–36.7; O2SAT 90–100
--- NOTE | ~2023-12-13 | CT_ITS ---
EXAMINATION: CTA chest PE protocol DATE: 12/13/2023 19:53 INDICATION: Alejandro integration specialist request TECHNIQUE: Computed tomography angiography (CTA) of the chest was performed with 100 mL Omnipaque-350 intravenous contrast timed to evaluate the pulmonary arteries. Coronal maximum intensity projection 3D-reconstructions were created by the technologist. Automated exposure control and iterative reconst ruction technique were employed. Exam dose: 194.93 mGy-cm total exam DLP. COMPARISON: 04/20/2023 CT chest abdomen FINDINGS: There is diagnostic contrast enhancement of the pulmonary arteries. A large saddle embolus on the left with emboli extending into the left upper and lower lobe. Right lower lobe pulmonary embo li are noted as well. Thoracic aortic calcification; no thoracic aortic aneurysm or dissection. Normal heart size. Coronary calcifications. Extensive bilateral chronic interstitial fibrotic changes consistent with usual interstitial pneumoni a type interstitial fibrosis, right greater than left, with chronic right lung volume loss. IMPRESSION: Bilateral pulmonary emboli including left saddle embolus, pulmonary emboli extending int o left upper and lower lobes and lesser right lower lobe pulmonary embolism. Dr. Mariee telephoned the report of bilateral pulmonary emboli including left saddle embolus on 12/13/19 24 at 2009 hours to ER Nurse Practitioner [place]. Reviewed, dictated and finalized at [facility]. Reviewed, dictated and finalized at [facility]. IMPRESSION: Bilateral pulmonary emboli including left saddle embolus, pulmonar y emboli extending into left upper and lower lobes and lesser right lower lobe pulmonary embolism. Dr. Mariee telephoned the report of bilateral pulmonary emboli including left sad dle embolus on 12/13/2023 at 2009 hours to ER Nurse Practitioner Ladonna.
--- NOTE | ~2023-12-13 | XR_ITS ---
XR chest 2V DATE: 12/13/2023 14:17 INDICATION: Shortness of breath. Weakness. TECHNIQUE: AP and lateral views COMPARISON: 04/20/2023 CT chest abdomen pelvis 03/26/2023 portable AP chest FINDINGS: There is chronic right lung volume loss and extensive right and to a lesser extent left pul monary interstitial fibrosis with pattern and distribution characteristic for usual interstitial pneu monia type pulmonary interstitial fibrosis. There is little interval change since 03/26/2023. However, superimposed pneumonia cannot be definitivel y excluded. No pleural effusion or pulmonary vascular congestion or pneumothorax is evident. Heart size is likely within normal limits. Prominent diffuse osteopenia with multiple fracture deformities of the thoracic and lumbar spine agai n noted. Surgical clips, right axillary axillary tail area. IMPRESSION: Chronic right lung volume loss and bilateral probable usual interstitial pneumonia type p ulmonary interstitial fibrosis, much more severe on the right Superimposed pneumonia is difficult to exclude. Prominent osteopenia and multiple fracture deformities of thoracic and lumbar spine Reviewed, dictated and finalized at [facility]. IMPRESSION: Chronic right lung volume loss and bilateral probable usual interst itial pneumonia type pulmonary interstitial fibrosis, much more severe on the r ight Superimposed pneumonia is difficult to exclude. Prominent osteopenia and multiple fracture deformities of thoracic and lumbar s pine
--- NOTE | ~2023-12-13 | CT_ITS ---
EXAMINATION: CT diagnostic chest wo con DATE: 12/13/2023 17:31 INDICATION: Possible pneumonia TECHNIQUE: Computed tomography (CT) of the chest was performed without intravenous contrast. Automate d exposure control and iterative reconstruction technique were employed. Exam dose: 147.20 mGy-cm to pio exam DLP. COMPARISON: 04/20/2023 CT chest FINDINGS: Severe bilateral pulmonary patchy interstitial fibrotic changes predominating in the periph eral lung zones, with extensive bronchiectasis and interlobular septal soft tissue thickening, much g reater on the right, with relative right lung volume loss. There may be mild progression but the appe arance is relatively stable since 04/20/2023. No interval acute pulmonary consolidation is noted. No pleural effusion. Aortic and coronary artery calcifications. No thoracic aortic aneurysm. Heart size is within normal range. No pericardial effusion. Normal morphology of the adrenal glands. Small sliding hiatal hernia. Old fracture deformities with anterior wedging at T10 and T11. Osteopenia. Degenerative spurring of t he thoracic spine. No suspicious osteolytic or osteoblastic lesion is noted.. IMPRESSION: Severe bilateral right greater than left interlobular septal soft tissue thickening, bro nchiectasis, predominantly in the peripheral lung zones in a pattern most consistent with usual inter stitial pneumonia type pulmonary interstitial fibrosis. There may be mild progression since 04/20/2023 . No apparent interval pneumonia is identified Reviewed, dictated and finalized at [facility]. Reviewed, dictated and finalized at [facility]. IMPRESSION: Severe bilateral right greater than left interlobular septal soft tissue thickening, bronchiectasis, predominantly in the peripheral lung zones i n a pattern most consistent with usual interstitial pneumonia type pulmonary in terstitial fibrosis. There may be mild progression since 04/20/2023. No apparent interval pneumonia is identified
--- NOTE | 2023-12-13 13:57 | ECG_ITS ---
Test Date: 2023-12-13 14:02:32 Measurements Intervals [place] Rate: 98 P: 34 [place]: 220 QRS: -59 QRSD: 73 T: 21 QT: 325 QTc: 415 Interpretive Statements SINUS RHYTHM WITH FIRST DEGREE AV BLOCK LOW QRS VOLTAGE IN PRECORDIAL LEADS LEFT ANTERIOR FASCICULAR BLOCK ANTEROLATERAL INFARCT, AGE INDETERMINATE BASELINE ARTIFACT- I, II, III, AVR, AVL, AVF, V1-V6 ABNORMAL ECG No previous ECG available for comparison Electronically Signed On 12-13-2023 14:27:54 CDT by Sherif Dinh D.O.
[2023-12-13 14:16] LABS: Basophils Percent Auto 0.3 % (0.2-1.2); Eosinophils Percent Auto 0.1 % (0-4.4); Hematocrit 38.1 % (37.0-47.0); Hemoglobin 12.5 g/dL (12.0-15.0); Immature Granulocyte Percent A 1.1 % (0-0.5); Immature Platelet Fraction Pct 2.9 % (0.9-11.2); Lymphocytes Absolute Auto 0.39 K/mm3 (0.9-3.2); Lymphocytes Percent Auto 4.1 % (18.3-44.2); Mean Corpuscular HGB Conc 32.8 g/dl (32-36); Mean Corpuscular Hemoglobin 33.7 pg (26-34); Mean Corpuscular Volume 102.7 fl (80-100); Mean Platelet Volume 13.1 fl (7.4-10.4); Monocytes Absolute Auto 0.3 K/mm3 (0.1-0.6); Monocytes Percent Auto 3.1 % (2.6-8.5); Neutrophils Absolute Auto 8.6 K/mm3 (1.3-6.7); Neutrophils Percent Auto 91.3 % (45.5-73.1); Nucleated Red Blood Cells Perc 0.2 % (0.0-0.2); Platelet Count Result 167 k/mm3 (150-375); Red Blood Count 3.71 M/mm3 (4.2-5.4); Red Cell Distribution Width 18.4 % (11.5-14.5); White Blood Count 9.4 K/mm3 (4.5-10.0)
[2023-12-13 14:25] LABS: Alanine Aminotransferase 27 U/L (6-35); Albumin Level 3.7 g/dL (3.5-5.1); Alkaline Phosphatase 65 U/L (38-126); Anion Gap 6 mmol/L (4-12); Aspartate Amino Transferase 39 U/L (14-36); Bilirubin,Total 0.8 mg/dL (0.2-1.3); Blood Urea Nitrogen 32 mg/dL (7-17); Calcium 8.8 mg/dL (8.4-10.2); Carbon Dioxide 34 mmol/L (22-30); Chloride 96 mmol/L (98-107); Estimated CRCL calculation 24 ml/min; Estimated Glomerular Filt Rate 43; Glucose 155 mg/dL (65-110); Potassium 4.7 mmol/L (3.4-5.0); Sodium 136 mmol/L (137-145)
[2023-12-13 14:47] LABS: Anisocytosis 1+; Macrocytosis 1+ (NORMAL); Platelet Estimate Adequate (Adequate); Schistocytes None Seen
--- NOTE | 2023-12-13 15:04 | ED.RECABL ---
HPI - Recheck/Abnormal Lab/Rx General Chief Complaint: Recheck/Abnormal Lab/Rx <Rachelsheri Lai APRN - Last Filed: 12/13/23 21:56> Stated Complaint: low BP <Rachel Lai APRN - Last Filed: 12/13/23 21:56> Time Seen by Provider: 12/13/23 14:24 <Rachel Lai APRN - Last Filed: 12/13/23 21:56> Source: patient and family <Rachelsheri Lai APRN - Last Filed: 12/13/23 21:56> Limitations: no limitations <Rachel Lai APRN - Last Filed: 12/13/23 21:56> History of Present Illness HPI narrative: Patient is an 83-year-old female who presents to the ER with low blood pressure. She reports she was started on a medication for interstitial lung disease about a month ago. Her reports one of the side effects is low blood pressure. Patient has slowly increased her dose, as directed. She is supposed to take her blood pressure prior to the breathing treatment and then again afterwards. Patient's reports this is part of a study through [facility]. She reports she thinks the treatment has helped improved her breathing but she has had increased feelings shakiness, dizziness, lightheadedness. Patient reports her history of pulmonary hypertension and interstitial lung disease is due to an inhalation injury 50 years ago and repeated environmental exposure. She reports she has had a history of low blood pressure in the past, but has never been this low. Patient denies chest pain, other signs of illness, urinary issues or bowel symptoms. <Rachel Lai APRN - Last Filed: 12/13/23 21:56> Related Data Home Medications: Home Medications Medication Instructions Recorded Confirmed calcium carbonate (Calcium 600) 600 mg PO DAILY 09/20/19 09/21/23 fish oil-dha-epa 1,200 mg-144 1 cap PO DAILY 09/20/19 09/21/23 mg-216 mg capsule cholecalciferol (vitamin D3) 25 25 mcg PO DAILY 03/28/20 09/21/23 mcg (1,000 unit) capsule oxybutynin chloride 15 mg 15 mg PO DAILY 03/28/20 09/21/23 tablet,extended release 24 hr vitamin B complex (B 1 tablet PO DAILY 11/17/22 09/21/23 Complex-Vitamin B12 tablet) coenzyme Q10 30 mg capsule 30 mg PO DAILY 03/27/23 09/21/23 docusate sodium 50 mg capsule 50 mg PO BID 03/27/23 09/21/23 krill oil 500 mg capsule 500 mg PO DAILY 03/27/23 09/21/23 azathioprine 50 mg tablet 50 mg PO TID 09/11/23 09/21/23 <Rachel Lai APRN - Last Filed: 12/13/23 21:56> Allergies/Adverse Reactions: Allergies Allergy/AdvReac Type Severity Reaction Status Date / Time fluticasone [From Flonase] Allergy Intermediate Diarrhea Verified 09/22/23 11:28 tetanus toxoid, adsorbed Allergy Intermediate SWELLING/HI Verified 09/22/23 11:28 VES bacitracin Allergy Unknown unknown Verified 09/22/23 11:28 polymyxin B Allergy Unknown unknown Verified 09/22/23 11:28 Tetanus Vaccines and Toxoid Allergy Unknown unknown Verified 09/22/23 11:28 lidocaine AdvReac Intermediate DIARRHEA Verified 09/22/23 11:28 neomycin AdvReac Intermediate SKIN Verified 09/22/23 11:28 IRRITATION pramoxine AdvReac Intermediate SKIN Verified 09/22/23 11:28 IRRITATION <Rachel Lai APRN - Last Filed: 12/13/23 21:56> Review of Systems Review of Systems: All systems reviewed & are unremarkable except as noted in HPI and below <Rachel Lai APRN - Last Filed: 12/13/23 21:56> [facility] Past Medical History Medical History: Medical History Accident due to mechanical fall without injury NICHOLAS positive (07/2020) Bilateral foot pain Breast cancer Cataracts, bilateral Cellulitis of left foot Cerumen debris on tympanic membrane of right ear Chronic interstitial lung disease Chronic kidney disease Chronic respiratory failure with hypoxia, on home oxygen therapy CMC arthritis, thumb, degenerative Counseling on health promotion and disease prevention Depression Encounter for medication management
[2023-12-13 15:07] LABS: Troponin I 0.031 ng/mL (0.000-0.034)
[2023-12-13] MEDS: SODIUM CHLORIDE 0.9% IV 1,000 ML 500 ML IV CONT (15:14)
[2023-12-13 15:21] LABS: INR 1.1; Lactic Acid Reflex 2.6 mmol/L (0.7-2.0); Partial Thromboplastin Time 30.2 Seconds (22.3-36.8); Prothrombin Time 14.6 Seconds (11.1-14.7)
[2023-12-13 16:24] LABS: Add Urine Microscopic? YES; Appearance Urine Cloudy (Clear); Bacteria Urine 4+ /hpf; Bilirubin Urine Negative (Negative); Blood Urine Negative (Negative); Color Urine Yellow (Yellow); Glucose Urine UA Negative (Negative); Ketones Urine Negative (Negative); Leukocyte Esterase Ur 1+ LEU/UL (Negative); Nitrate Urine Negative (Negative); Protein Urine Negative (Negative); RBC Urine 0-2 /hpf (0-2); Specific Grav Ur 1.014 (1.001-1.035); Squamous Epithelial Cell Urine Few /hpf (Few); pH Urine 6.5 (5.0-9.0)
--- NOTE | 2023-12-13 16:45 | PC.NURSE ---
Called lab at this time to get an update on UA result, spoke with Elizabeth. Lab states results should be in now.
[2023-12-13 18:07] LABS: Reflex Lactic Acid Yes or No Add Lactic
[2023-12-13 18:38] LABS: Lactic Acid 1.7 mmol/L (0.7-2.0)
--- NOTE | 2023-12-13 19:45 | PC.NURSE ---
Spoke with [facility] transfer line. Spoke with Thong Minaya Nurse. Transfer line states they will call once a bed becomes available.
[2023-12-13] MEDS: IPRATROPIUM 0.5 MG/ALBUTEROL SULFATE 2.5 MG AMPUL.NEB 3 ML 6 ML INHALATION (19:58)
[2023-12-13 20:20] LABS: Influenza A QL RT-PCR Negative (Negative); Influenza B QL RT-PCR Negative (Negative); RSV RNA, RT-PCR Negative (Negative); SARS-CoV-2 RNA PCR Negative (Negative)
[2023-12-13 21:01] LABS: Basophils Percent Auto 0.3 % (0.2-1.2); Eosinophils Percent Auto 0.4 % (0-4.4); Hematocrit 34.8 % (37.0-47.0); Hemoglobin 11.2 g/dL (12.0-15.0); Immature Granulocyte Absolute 0.05 K/mm3 (0.00-0.031); Immature Granulocyte Percent A 0.7 % (0-0.5); Immature Platelet Fraction Pct 2.9 % (0.9-11.2); Lymphocytes Absolute Auto 1.04 K/mm3 (0.9-3.2); Lymphocytes Percent Auto 15.3 % (18.3-44.2); Mean Corpuscular HGB Conc 32.2 g/dl (32-36); Mean Corpuscular Volume 102.7 fl (80-100); Mean Platelet Volume 13.2 fl (7.4-10.4); Monocytes Absolute Auto 0.3 K/mm3 (0.1-0.6); Neutrophils Absolute Auto 5.4 K/mm3 (1.3-6.7); Neutrophils Percent Auto 79.3 % (45.5-73.1); Platelet Count Result 155 k/mm3 (150-375); Red Blood Count 3.39 M/mm3 (4.2-5.4); Red Cell Distribution Width 18.2 % (11.5-14.5); White Blood Count 6.8 K/mm3 (4.5-10.0)
[2023-12-13] MEDS: HEPARIN SODIUM 5,000 UNITS/ML VIAL 4000 UNITS IV PUSH (21:01)
[2023-12-13] MEDS: HEPARIN SOD/D5W 100 UNITS/ML 25,000 UNITS/250 ML BAG 9 UNITS IV CONT (21:02)
--- NOTE | 2023-12-13 21:06 | PC.NURSE ---
PAtient O2 saturation 85% on NC. Switching to HF NC per ED respiratory and provider
[2023-12-13 21:12] LABS: INR 1.1; Prothrombin Time 14.5 Seconds (11.1-14.7)
[2023-12-13 21:13] LABS: Partial Thromboplastin Time 31.5 Seconds (22.3-36.8)
[2023-12-13 21:22] LABS: Anion Gap 4 mmol/L (4-12); Blood Urea Nitrogen 30 mg/dL (7-17); Calcium 8.2 mg/dL (8.4-10.2); Carbon Dioxide 31 mmol/L (22-30); Chloride 100 mmol/L (98-107); Estimated CRCL calculation 28 ml/min; Estimated Glomerular Filt Rate 53; Glucose 122 mg/dL (65-110); Potassium 4.5 mmol/L (3.4-5.0); Sodium 135 mmol/L (137-145)
--- NOTE | 2023-12-13 21:23 | PC.NURSE ---
Gave triage report to [place] [facility] Nurse at this time. Covid test ordered per Alejandro request
== END 2023-12-13 22:05 | disposition short-term general hospital (02) ==
PROVIDERS: Emergency Medicine; Emergency Provider Registered Nurse; PCP Emergency Medicine
DX: I26.92 Saddle embolus of pulmonary artery without acute cor pulmonale (principal); J84.9 Interstitial pulmonary disease, unspecified; Z20.822 Contact with and (suspected) exposure to COVID-19; I27.20 Pulmonary hypertension, unspecified; N18.9 Chronic kidney disease, unspecified; J96.11 Chronic respiratory failure with hypoxia; Z99.81 Dependence on supplemental oxygen; G47.33 Obstructive sleep apnea (adult) (pediatric); M18.9 Osteoarthritis of first carpometacarpal joint, unspecified; M81.0 Age-related osteoporosis without current pathological fracture; N32.81 Overactive bladder; Z87.440 Personal history of urinary (tract) infections; Z85.3 Personal history of malignant neoplasm of breast; Z87.891 Personal history of nicotine dependence; Z90.710 Acquired absence of both cervix and uterus; Z79.899 Other long term (current) drug therapy; I44.0 Atrioventricular block, first degree; I44.4 Left anterior fascicular block; R94.31 Abnormal electrocardiogram [ECG] [EKG]
CPT/HCPCS: 36415; 71046; 71250; 71275; 80048; 80053; 81001; 83605; 84484; 85025; 85055; 85610; 85730; 86140; 87040; 87086; 87088; 87637; 93005; 94640; 96365; 99285; J1644; J7030; Q9967

== ENCOUNTER 2024-02-29 14:36 | Inpatient (IN) | payer OTHER, SELFPAY ==
[2024-02-29] VITALS (23 sets, daily range): BP systolic 101–146; BP diastolic 52–88; PULSE 64–123; RESP 15–31; TEMP 36.1–36.6; O2SAT 48–100; BMI 21.4
--- NOTE | ~2024-02-29 | CT_ITS ---
EXAMINATION: CT diagnostic chest wo con DATE: 03/05/2024 11:02 INDICATION: worsening edema on chest xr TECHNIQUE: Computed tomography (CT) of the chest was performed without intravenous contrast. Automate d exposure control and iterative reconstruction technique were employed. The dose-length product was 190.84 mGy-cm. COMPARISON: 12/13/2023; x-ray chest 03/05/2024. FINDINGS: CHEST: Thoracic aorta: No significant dilation. Atherosclerotic calcifications. Lung parenchyma and airways: Severe diffuse interstitial change and bronchiectasis, most progressive in the right lung, mildly wo rsened since comparison CT. Increasing mosaic attenuation. Patent airways. Thoracic inlet, axillae and chest wall: No thyroid or soft tissue mass. No axillary lymphadenopathy. Mediastinum: No mass or lymphadenopathy. Heart and pericardium: Normal heart size. No pericardial effusion. Coronary artery calcifications: Heavy. Pleura: No effusion or mass. Upper abdomen: No significant finding. Thoracic bones: No acute osseous finding in the chest. Stable multilevel compression deformities IMPRESSION: Severe chronic interstitial lung disease with mosaic attenuation, interval worsening since the prior CT possibly secondary to edema and/or progressive disease. Reviewed, dictated and finalized at location K. REPAIR CLERK IMPRESSION: Severe chronic interstitial lung disease with mosaic attenuation, interval wors ening since the prior CT possibly secondary to edema and/or progressive disease .
--- NOTE | ~2024-02-29 | XR_ITS ---
EXAMINATION: XR chest 2V Exam Date/Time: 02/29/2024 15:25 PEDIATRIC CNS HISTORY: SOA, WEAKNESS Comparison: 12/13/2023; CTPA 12/13/2023. RESULT: Lines, tubes, and devices: Right axillary surgical clips. Lungs and pleura: Chronic interstitial changes with patchy areas of groundglass and consolidative op acities, severe in the right lung, name and volume loss, overall worsening since the prior study. Cardiomediastinal silhouette: Stable, partially obscured. Other: No acute osseous or upper abdominal finding. IMPRESSION: Worsening pulmonary opacities may represent edema or infection, overlying chronic severe interstitial changes. Reviewed, dictated and finalized at location K. ATRIC CNS IMPRESSION: Worsening pulmonary opacities may represent edema or infection, overlying chron ic severe interstitial changes.
--- NOTE | ~2024-02-29 | XR_ITS ---
EXAMINATION: XR chest 1V portable DATE: 03/05/2024 08:17 INDICATION: Lung disease TECHNIQUE: frontal view of the chest was obtained. COMPARISON: Chest radiograph dated 02/29/2024 and chest [address] and CT dated 12/13/2023 FINDINGS: Chronic volume loss in the right lung with elevation the right hemidiaphragm. Diffuse coarse intersti tial and airspace opacities throughout both lungs more severe on the right buttock with interval prog ression on both the left and right suggesting pulmonary edema and/or pneumonia superimposed over the asymmetric chronic interstitial lung disease with bronchiectatic changes which are better appreciated on the prior CT. No pneumothorax or definitive pleural effusion. Heart size is normal. Coarse calcif ications at the right breast and surgical clips consistent with right axillary lymph node dissection. IMPRESSION: 1. Continued worsening of likely pulmonary edema or pneumonia superimposed over asymmetric right-side d predominant chronic interstitial lung disease. Reviewed, dictated and finalized at location A. RFACE DESIGNER IMPRESSION: 1. Continued worsening of likely pulmonary edema or pneumonia superimposed over asymmetric right-sided predominant chronic interstitial lung disease.
--- NOTE | 2024-02-29 14:47 | ECG_ITS ---
Test Date: 2024-02-29 15:02:32 Measurements Intervals [place] Rate: 79 P: 54 [place]: 204 QRS: -44 QRSD: 73 T: 11 QT: 338 QTc: 387 Interpretive Statements SINUS RHYTHM WITH OCCASIONAL SUPRAVENTRICULAR PREMATURE COMPLEXES MARKED LEFT AXIS DEVIATION [QRS AXIS < -30] Baseline artifact Compared to ECG 12/13/2023 14:02:32 Left-axis deviation now present First degree AV block no longer present Left anterior fascicular block no longer present Myocardial infarct finding no longer present Electronically Signed On 02-29-2024 15:19:57 [employer] by Jadiel Delgado M.D.
[2024-02-29 15:00] LABS: Basophils Percent Auto 0.9 % (0.2-1.2); Eosinophils Percent Auto 0.7 % (0-4.4); Hematocrit 24.5 % (37.0-47.0); Hemoglobin 7.5 g/dL (12.0-15.0); Immature Granulocyte Absolute 0.04 K/mm3 (0.00-0.031); Immature Granulocyte Percent A 0.9 % (0-0.5); Lymphocytes Absolute Auto 0.71 K/mm3 (0.9-3.2); Lymphocytes Percent Auto 15.7 % (18.3-44.2); Mean Corpuscular HGB Conc 30.6 g/dl (32-36); Mean Corpuscular Hemoglobin 33.8 pg (26-34); Mean Corpuscular Volume 110.4 fl (80-100); Mean Platelet Volume 12.3 fl (7.4-10.4); Monocytes Absolute Auto 0.6 K/mm3 (0.1-0.6); Monocytes Percent Auto 14.2 % (2.6-8.5); Neutrophils Absolute Auto 3.1 K/mm3 (1.3-6.7); Neutrophils Percent Auto 67.6 % (45.5-73.1); Nucleated Red Blood Cells Perc 0.9 % (0.0-0.2); Platelet Count Result 283 k/mm3 (150-375); Red Blood Count 2.22 M/mm3 (4.2-5.4); Red Cell Distribution Width 25.7 % (11.5-14.5); White Blood Count 4.5 K/mm3 (4.5-10.0)
[2024-02-29 15:03] LABS: Fractional Inspired Oxygen 100 %; HCO3 ABG 33.7 mEq/l (22.0-26.0); Oxygen Content ABG 11.9 %vol (16.0-22.0); Oxygen Saturation ABG 99.7 % (95.0-100.0); Oxyhemoglobin 97.6 % THb (90.0-100.0); PCO2 ABG 55.3 mmHg (35.0-45.0); PO2 ABG 340.7 mmHg (80.0-100.0); PO2 FiO2 Ratio Arterial Blood 3.41 %; pH ABG 7.403 (7.350-7.450)
[2024-02-29 15:05] LABS: Site Drawn RIGHT BRACHIAL
[2024-02-29 15:06] LABS: Device NON-REBREATHER MASK
[2024-02-29 15:13] LABS: Alanine Aminotransferase 20 U/L (6-35); Albumin Level 3.1 g/dL (3.5-5.1); Alkaline Phosphatase 80 U/L (38-126); Anion Gap 1 mmol/L (4-12); Aspartate Amino Transferase 42 U/L (14-36); Bilirubin,Total 0.6 mg/dL (0.2-1.3); Blood Urea Nitrogen 17 mg/dL (7-17); Calcium 8.4 mg/dL (8.4-10.2); Carbon Dioxide 37 mmol/L (22-30); Chloride 101 mmol/L (98-107); Estimated CRCL calculation 39 ml/min; Estimated Glomerular Filt Rate > 60; Glucose 108 mg/dL (65-110); Lactic Acid Reflex 1.3 mmol/L (0.7-2.0); Potassium 4.4 mmol/L (3.4-5.0); Sodium 139 mmol/L (137-145)
[2024-02-29 15:16] LABS: INR 1.2; Prothrombin Time 15.8 Seconds (11.1-14.7)
[2024-02-29 15:17] LABS: Partial Thromboplastin Time 33.3 Seconds (22.3-36.8)
[2024-02-29 15:22] LABS: Anisocytosis 2+; Hypochromasia 2+; Platelet Estimate Adequate (Adequate); Polychromasia 1+; Troponin I < 0.012 ng/mL (0.000-0.034)
[2024-02-29 15:23] LABS: Poikilocytosis 1+; Schistocytes Rare
--- NOTE | 2024-02-29 15:33 | ED.SOB ---
HPI - SOB/Dyspnea General Chief Complaint: Shortness of Breath/Dyspnea Stated Complaint: sob Time Seen by Provider: 02/29/24 14:42 History of Present Illness HPI Narrative: Patient is an 83-year-old female who presents ER with shortness of breath. Has history of chronic interstitial lung disease. She sees a physician at [facility]. She has had progressive weakness over last month as well as progressive dyspnea. No chest pain or chest pressure. Denies any cough or fever. She is not currently on any steroids. Related Data Home Medications Medication Instructions Recorded Confirmed calcium carbonate (Calcium 600) 600 mg PO DAILY 09/20/19 02/01/24 fish oil-dha-epa 1,200 mg-144 1 cap PO DAILY 09/20/19 02/01/24 mg-216 mg capsule cholecalciferol (vitamin D3) 25 25 mcg PO DAILY 03/28/20 02/01/24 mcg (1,000 unit) capsule oxybutynin chloride 15 mg 15 mg PO DAILY 03/28/20 02/01/24 tablet,extended release 24 hr vitamin B complex (B 1 tablet PO DAILY 11/17/22 02/01/24 Complex-Vitamin B12 tablet) coenzyme Q10 30 mg capsule 30 mg PO DAILY 03/27/23 02/01/24 docusate sodium 50 mg capsule 50 mg PO BID 03/27/23 02/01/24 krill oil 500 mg capsule 500 mg PO DAILY 03/27/23 02/01/24 azathioprine 50 mg tablet 50 mg PO TID 09/11/23 02/01/24 apixaban 5 mg tablet (Eliquis) 5 mg PO BID 01/04/24 02/01/24 azathioprine 50 mg tablet 50 mg PO TID 02/01/24 02/01/24 treprostinil 1.74 mg/2.9 mL (0.6 12 inh inhalation Q6H 02/01/24 02/01/24 mg/mL) solution for nebulization (Tyvaso) Allergies Allergy/AdvReac Type Severity Reaction Status Date / Time fluticasone [From Flonase] Allergy Intermediate Diarrhea Verified 02/01/24 14:57 tetanus toxoid, adsorbed Allergy Intermediate SWELLING/HI Verified 02/01/24 14:57 VES bacitracin Allergy Unknown unknown Verified 02/01/24 14:57 polymyxin B Allergy Unknown unknown Verified 02/01/24 14:57 Tetanus Vaccines and Toxoid Allergy Unknown unknown Verified 02/01/24 14:57 lidocaine AdvReac Intermediate DIARRHEA Verified 02/01/24 14:57 neomycin AdvReac Intermediate SKIN Verified 02/01/24 14:57 IRRITATION pramoxine AdvReac Intermediate SKIN Verified 02/01/24 14:57 IRRITATION Review of Systems Review of Systems: All systems reviewed & are unremarkable except as noted in HPI and below Constitutional: Constitutional: Reports no additional constitutional complaints ENT: Reports system reviewed and no additional complaints, except as documented Cardiovascular: Cardiovascular: Reports no additional cardiovascular complaints Respiratory: Respiratory: Denies cough, Reports dyspnea and Denies wheezing PMFSH Past Medical History Medical History Accident due to mechanical fall without injury NICHOLAS positive (07/2020) Bilateral foot pain Breast cancer Cataracts, bilateral Cellulitis of left foot Cerumen debris on tympanic membrane of right ear Chronic interstitial lung disease Chronic kidney disease Chronic respiratory failure with hypoxia, on home oxygen therapy CMC arthritis, thumb, degenerative Counseling on health promotion and disease prevention Depression Encounter for medication management Essential tremor Former smoker Generalized osteoarthritis of multiple sites Greater trochanteric bursitis of right hip Jackson neuroma (1992) Mumps Night sweats Obstructive sleep apnea on CPAP Osteoporosis Other screening mammogram Overactive bladder Pain in left shoulder Post-menopausal Post-menopausal Pulmonary nodules Ribs, multiple fractures Right shoulder pain Screening cholesterol level Skin lesion of back URI with cough and congestion UTI (urinary tract infection) Surgical History Surgical History History of ankle surgery ORIF right ankle fracture. History of appendectomy History of lumpectomy of right breast (1985) History of rotator cuff surgery History of tonsillectomy (1952) History of total hysterectomy (1970) Family History Family History Father , 61 Heart failure Arthritis Pneumonia Mother , GI Bleed GI bleed Social History Social History Social History: Surrogate medical decision maker: Brice Rosa, . Code status: Full code. 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 Spiritual care concerns: No Exam Narrative: GENERAL: Chronically ill-appearing, well-nourished, and in mild distress. HEAD: Normocephalic, atraumatic. ENT: Mucous membranes moist. NECK: Supple. CHEST: Faint rales bilaterally. Mild respiratory distress. HEART: Regular rate and rhythm. Normal peripheral pulses. ABDOMEN: Soft, nontender, nondistended. Hemoccult-negative stool on digital rectal exam. EXTREMITIES: Normal range of motion. No edema. SKIN: Warm, dry, no rash. NEURO: Alert and oriented x3. PSYCH: Normal mood and affect Course Course Emergency Course: No evidence of bleeding despite being on blood thinner. Admit for observation. Blood transfusion ordered. Vital Signs Vital signs: Vital Signs Pulse Oximetry 100 02/29/24 14:31 Oxygen Delivery Non-Rebreather Mask 02/29/24 14:31 Oxygen Flow Rate 15 02/29/24 14:31 Pulse Rate 64 02/29/24 17:31 Respiratory Rate 28 H 02/29/24 17:31 Blood Pressure 107/67 02/29/24 17:31 Pulse Oximetry 90 02/29/24 17:31 Oxygen Delivery Nasal Cannula 02/29/24 17:27 Oxygen Flow Rate 6 02/29/24 17:27 MDM - SOB/Dyspnea Lab Data 02/29/24 14:51 02/29/24 14:51 Labs: Lab Results 02/29/24 02/29/24 02/29/24 Range/Units 14:51 14:53 16:52 WBC 4.5 (4.5-10.0) K/mm3 RBC 2.22 L (4.2-5.4) M/mm3 Hgb 7.5 L D (12.0-15.0) g/dL Hct 24.5 L (37.0-47.0) % MCV 110.4 H (80-100) fl MCH 33.8 (26-34) pg MCHC 30.6 L (32-36) g/dl RDW 25.7 H (11.5-14.5) % Plt Count 283 D (150-375) k/mm3 MPV 12.3 H (7.4-10.4) fl Immature Gran % (Auto) 0.9 H (0-0.5) % Neut % (Auto) 67.6 (45.5-73.1) % Lymph % (Auto) 15.7 L (18.3-44.2) % [place] % (Auto) 14.2 H (2.6-8.5) % Eos % (Auto) 0.7 (0-4.4) % Baso % (Auto) 0.9 (0.2-1.2) % Lymph # (Auto) 0.71 L (0.9-3.2) K/mm3 [place] # (Auto) 0.6 (0.1-0.6) K/mm3 Eos # (Auto) 0.0 (0-0.3) K/mm3 Baso # (Auto) 0.0 (0.0-0.1) K/mm3 Abs Immat Gran (auto) 0.04 H (0.00-0.031) K/mm3 Absolute Neuts (auto) 3.1 (1.3-6.7) K/mm3 Absolute Nucleated RBC 0.040 H (0.0-0.012) K/mm3 Nucleated RBC % 0.9 H (0.0-0.2) % Platelet Estimate Adequate (Adequate) Polychromasia 1+ Hypochromasia 2+ Poikilocytosis 1+ Anisocytosis 2+ Schistocytes Rare Absolute Retic 0.12 H (0.02-0.10) 10^6/uL Percent Retic 5.54 H (0.7-4.3) % Immature Retic Fraction 35.0 H (3.0-15.9) % Retic Hgb Content 33.6 (28.2-36.6) pg PT 15.8 H (11.1-14.7) Seconds INR 1.2 APTT 33.3 (22.3-36.8) Seconds Sodium 139 (137-145) mmol/L Potassium 4.4 (3.4-5.0) mmol/L Chloride 101 (98-107) mmol/L Carbon Dioxide 37 H (22-30) mmol/L Anion Gap 1 L (4-12) mmol/L BUN 17 D (7-17) mg/dL Creatinine 0.70 (0.7-1.0) mg/dL Estim Creat Clear Calc 39 ml/min Estimated GFR > 60 (59 - ) Glucose 108 (65-110) mg/dL Lactic Acid 1.3 (0.7-2.0) mmol/L Calcium 8.4 (8.4-10.2) mg/dL Iron 30 L (37-170) ug/dL TIBC 259 L (261-462) ug/dL % Saturation 12 L (20-50) % Transferrin 180 L (206-381) mg/dL Ferritin 30.60 (11.1-264) ng/mL Total Bilirubin 0.6 (0.2-1.3) mg/dL AST 42 H (14-36) U/L ALT 20 (6-35) U/L Alkaline Phosphatase 80 (38-126) U/L Troponin I < 0.012 (0.000-0.034) ng/mL NT-Pro-B Natriuret Pep 1570 H (19.9-100) pg/mL Total Protein 7.0 (6.3-8.2) g/dL Albumin 3.1 L (3.5-5.1) g/dL Vitamin B12 932.0 H (239-931) pg/mL Folate > 20.0 H (2.76->20) ng/mL Blood Type A Negative Antibody Screen Negative ABG Data ABG results: 02/29/24 15:00 Puncture Site Right brachial ABG pH 7.403 ABG pCO2 55.3 H ABG pO2 340.7 H ABG PO2/FiO2 Ratio 3.41 ABG HCO3 33.7 H ABG O2 Saturation 99.7 ABG O2 Content 11.9 L ABG Base Excess 8.0 A-a Gradient 317.0 Oxyhemoglobin 97.6 Total Hemoglobin 8.0 L O2 Delivery Device Non-rebreather mask O2 Liters/Min 15.0 FiO2 100 Imaging Data Radiologist's impression: ITS Impressions Chest X-Ray 02/29/24 15:54 IMPRESSION: Worsening pulmonary opacities may represent edema or infection, overlying chronic severe interstitial changes. ECG Data EKG #1: ECG completion date: 02/29/24 ECG completion time: 15:02 EKG Interpretation: normal rate (79), sinus rhythm, normal QRS, normal QT and left axis Critical Care Time Critical Care Time Critical Care Time: Yes Total Critical Care Time: 35 Discharge Plan Discharge Clinical Impression: Anemia, CHF exacerbation Patient Disposition: Still a Patient Condition: Stable Prescriptions: No Action oxybutynin chloride 15 mg tablet extended release 24hr 15 mg PO DAILY cholecalciferol (vitamin D3) 25 mcg (1,000 unit) capsule 25 mcg PO DAILY azathioprine 50 mg tablet 50 mg PO TID Tyvaso 1.74 mg/2.9 mL (0.6 mg/mL) solution for nebulization 12 inh inhalation Q6H Rx Instructions: administer 4 doses per day while awake azathioprine 50 mg tablet 50 mg PO TID Eliquis 5 mg tablet 5 mg PO BID calcium carbonate [Calcium 600] 600 mg calcium (1,500 mg) tablet 600 mg PO DAILY fish oil-dha-epa 1,200-144-216 mg capsule 1 cap PO DAILY vitamin B complex [B Complex-Vitamin B12] Tablet 1 tablet PO DAILY ipratropium bromide 21 mcg (0.03 %) spray,non-aerosol 2 spray intranasal TID 30 Days Qty: 30 2RF Rx Instructions: administer into each nostril albuterol sulfate 90 mcg/actuation HFA aerosol inhaler 1 puff inhalation Q6H PRN (Reason: shortness of breath or wheezing) 30 Days Qty: 8.5 2RF docusate sodium 50 mg Capsule 50 mg PO BID krill oil 500 mg Capsule 500 mg PO DAILY coenzyme Q10 30 mg Capsule 30 mg PO DAILY alendronate 70 mg tablet See Rx Instructions .ROUTE .COMPLEX Qty: 12 2RF Dose Instruction: TAKE 1 TABLET BY MOUTH WEEKLY Rx Instructions: TAKE 1 TABLET BY MOUTH WEEKLY (DME) breast prosthetic See Rx Instructions .Route .MEDSUPPLY Qty: 1 0RF Rx Instructions: As directed albuterol sulfate 2.5 mg /3 mL (0.083 %) solution for nebulization See Rx Instructions .ROUTE .COMPLEX Qty: 180 5RF Dose Instruction: USE 1 VIAL VIA NEBULIZER TWICE DAILY NEEDED FOR SHORTNESS OF BREATH OR WHEEZING Rx Instructions: USE 1 VIAL VIA NEBULIZER TWICE DAILY NEEDED FOR SHORTNESS OF BREATH OR WHEEZING sertraline 50 mg tablet See Rx Instructions .ROUTE .COMPLEX Qty: 90 2RF Dose Instruction: TAKE 1 TABLET BY MOUTH DAILY Rx Instructions: TAKE 1 TABLET BY MOUTH DAILY omeprazole 20 mg capsule,delayed release(DR/EC) 20 mg PO DAILY Qty: 90 2RF gabapentin 100 mg capsule See Rx Instructions .ROUTE .COMPLEX Qty: 90 2RF Dose Instruction: TAKE 1 CAPSULE BY MOUTH THREE TIMES DAILY Rx Instructions: TAKE 1 CAPSULE BY MOUTH THREE TIMES DAILY Follow-up/Referrals: Dar Wong MD [Primary Care Provider] -
[2024-02-29 16:38] LABS: Reticulocyte Hemoglobin Conten 33.6 pg (28.2-36.6); Reticulocyte Percent 5.54 % (0.7-4.3); Reticulocytes Absolute 0.12 10^6/uL (0.02-0.10)
[2024-02-29 16:45] LABS: Iron 30 ug/dL (37-170)
[2024-02-29 16:55] LABS: NT Pro B Type Natriuretic Pept 1570 pg/mL (19.9-100)
[2024-02-29 16:55] LABS: Percent Iron Saturation 12 % (20-50)
[2024-02-29 17:05] LABS: Transferrin 180 mg/dL (206-381)
[2024-02-29 18:09] LABS: Folic Acid > 20.0 ng/mL (2.76->20)
[2024-02-29] MEDS: SODIUM CHLORIDE 0.9% IV 250 ML 30 ML IV CONT (18:56)
--- NOTE | 2024-02-29 20:41 | ADMGEN ---
This patient, Ladonna Rosa, was admitted to Medical Room 255-01. Patient/family oriented to hospital policies and general routines including ID bracelet, bed and alarms, visiting hours, pain management, procedures, bathroom and other care routines, personal items, smoking policy, room service/diet, and visiting hours. Information on how to activate the Rapid Response Team has been discussed. Patient/Family are encouraged to report perceived risks to care and to ask questions if they do not understand what they are told or what they should do.
--- NOTE | 2024-02-29 21:05 | PC.NURSE ---
Admission report provided to TERA Rivero.
[2024-02-29] MEDS: SODIUM CHLORIDE 0.9% IV 250 ML 30 ML (21:59)
[2024-03-01] VITALS (10 sets, daily range): BP systolic 114–152; BP diastolic 53–79; PULSE 72–91; RESP 16–20; TEMP 36.2–37.2; O2SAT 90–99
--- NOTE | 2024-03-01 | ECHO_ITS ---
Patient Info Name: Ladonna Rosa Age: 83 years : 1940 Gender: Female Ht: 60 in Wt: 109 lbs BSA: 1.45 m2 HR: 74 bpm BP: 114 / 59 mmHg Technical Quality: Fair Exam Date: 03/01/2024 3:29 PM Exam Location: Echo Lab Patient Status: Inpatient Admit Date: 02/29/2024 Staff Ordering Physician: Tereza Granado APRN Equal Opportunity Representative: Melvin Molina RDCS Attending Provider: Leland Aranda MD Referring Physician: Loy VILLAVICENCIO; Exam Type: CA echo doppler color flow Study Info Indications R06.02 - Shortness of breath Complete two-dimensional, color flow and Doppler transthoracic echocardiogram is performed. Summary 1. Complete two-dimensional, color flow and Doppler transthoracic echocardiogram is performed. 2. Left ventricular chamber dimension is normal. 3. Left ventricular systolic function is normal, estimated at 65-70%. 4. The left ventricular diastolic function is grade I diastolic dysfunction. 5. E/e' 10 is mildly elevated. 6. Left atrial chamber dimension is mildly enlarged. 7. There is mild aortic valve sclerosis. 8. There is mild aortic valve regurgitation. 9. The mitral valve has moderately calcified annulus. 10. There is moderate to severe mitral valve regurgitation. 11. There is moderate tricuspid valve regurgitation. 12. Moderate pulmonary hypertension, estimated pulmonary arterial systolic pressure is 58 mmHg. 13. There is mild pulmonic regurgitation. Left Ventricle E/e' 10 is mildly elevated. Left ventricular chamber dimension is normal. Left ventricular systolic function is normal, estimated at 65-70%. The left ventricular diastolic function is grade I diastolic dysfunction. Right Ventricle Right ventricular chamber dimension is normal. Right ventricular systolic function is normal. Left Atria Left atrial chamber dimension is mildly enlarged. Right Atria Right atrial chamber dimension is normal. Aortic Valve The aortic valve is trileaflet. There is mild aortic valve sclerosis. There is no aortic valve stenosis. There is mild aortic valve regurgitation. Pulmonic Valve There is mild pulmonic regurgitation. Mitral Valve The mitral valve has moderately calcified annulus. There is no mitral valve stenosis. There is moderate to severe mitral valve regurgitation. Tricuspid Valve There is moderate tricuspid valve regurgitation. Moderate pulmonary hypertension, estimated pulmonary arterial systolic pressure is 58 mmHg. Pericardium/Pleural There is no pericardial effusion. Inferior Vena Cava Normal inferior vena cava with >50% collapse upon inspiration consistent with normal right atrial pressure, 5 mmHg. Aorta The aortic root size at the sinus of Valsalva is normal. Left Ventricular Outflow Tract Name Value Normal LVOT 2D LVOT Diameter 1.9 cm LVOT Doppler LVOT Peak Gradient 5 mmHg LVOT Mean Gradient 2 mmHg LVOT VTI 21 cm LVOT VTI/AV VTI Ratio 0.7 LVOT Stroke Volume 56 ml LVOT CO 4.0 l/min LVOT CI 2.7 l/min/m2 Pulmonic Valve Name Value Normal PV Doppler PV Peak Gradient 2 mmHg PV Regurgitation Doppler CA Peak End Diastolic Velocity 116 cm/s Mitral Valve Name Value Normal MV Doppler MV Decel Wallace 492 cm/s2 MV PHT 55 ms MV Area (PHT) 4.0 cm2 4.0-5.0 MV Diastolic Function MV E Peak Velocity 93 cm/s MV A Peak Velocity 135 cm/s MV E/A 0.7 MV Decel Time 188 ms Tricuspid Valve Name Value Normal TV Regurgitation Doppler TR Peak Velocity 363 cm/s TR Peak Gradient 34 mmHg Estimated PAP/RSVP RA Pressure 5 mmHg <=5 PA Systolic Pressure 58 mmHg <36 RV Systolic Pressure 58 mmHg <36 Aorta Name Value Normal Ascending Aorta Ao Root Diameter (MM) 2.6 cm Ao Root Diam Index (MM) 1.8 cm/m2 Aortic Valve Name Value Normal AV Doppler AV Peak Velocity 160 cm/s AV Peak Gradient 10 mmHg AV Mean Gradient 4 mmHg AV VTI 31 cm AV Area (Cont Eq VTI) 1.8 cm2 >=3.0 AV Area (Cont Eq Roberto) 1.8 cm2 AV Regurgitation 2D LVOT Area 2.7 cm2 AV Regurgitation Doppler AR Decel Time 2,287 ms AR Decel Wallace 166 cm/s2 AR PHT 663 ms Ventricles Name Value Normal LV Dimensions 2D/MM IVS Diastolic Thickness (2D) 0.8 cm 0.6-1.0 IVS Diastole Thickness (MM) 1.0 cm 0.6-0.9 LVID Diastole (2D) 4.3 cm 3.8-5.2 LVID Diastole (MM) 4.3 cm 3.8-5.2 LVIW Diastolic Thickness (2D) 0.8 cm 0.6-0.9 LVIW Diastolic Thickness (MM) 0.8 cm 0.6-0.9 LVID Systole (2D) 2.7 cm 2.2-3.5 LVID Systole (MM) 3.1 cm 2.2-3.5 LVOT Diameter 1.9 cm LV Mass (2D Cubed) 108.85 g 67.00-162.00 LV Mass Index (2D Cubed) 75 g/m2 43-95 Relative Wall Thickness (2D) 0.39 LV Mass (MM Cubed) 116.18 g 67.00-162.00 LV Mass Index (MM Cubed) 80 g/m2 43-95 Relative Wall Thickness (MM) 0.37 LV Fractional Shortening/Ejection Fraction 2D/MM LV Fractional Shortening (2D) 37 % 27-45 LV Fractional Shortening (MM) 28 % 27-45 LV EF (MM Teicholz) 54 % 54-74 LV EF (2D Teicholz) 67 % 54-74 LV Diastolic Volume (4C MOD) 51 ml LV EF (4C MOD) 70 % LV Diastolic Volume (2C MOD) 48 ml LV EF (2C MOD) 74 % LV Diastolic Volume (BP MOD) 51 ml 46-106 LV Diastolic Volume Index (BP MOD) 35 ml/m2 29-61 LV Systolic Volume (BP MOD) 14 ml 14-42 LV Systolic Volume Index (BP MOD) 10 ml/m2 8-24 LV EF (BP MOD) 73 % 54-74 LV Diastolic Length (4C) 7.0 cm LV Systolic Length (4C) 5.8 cm LV Stroke Volume (4C MOD) 36 ml Atria Name Value Normal LA Dimensions LA Dimension (MM) 4.6 cm 2.7-3.8 LA Volume (4C A-L) 28 ml LA Volume (BP A-L) 38 ml RA Dimensions RA Area (4C) 6.5 cm2 <=18.0 Report Signatures
[2024-03-01] MEDS: PANTOPRAZOLE SODIUM IV 40 MG VIAL IV PUSH ×3 (01:44→21:01)
[2024-03-01] MEDS: IRON SUCROSE COMPLEX 200 MG in SODIUM CHLORIDE 0.9% IV 100 ML 220 MG IVPB (01:44)
[2024-03-01 07:15] LABS: Hematocrit 32.4 % (37.0-47.0); Hemoglobin 10.3 g/dL (12.0-15.0); Mean Corpuscular HGB Conc 31.8 g/dl (32-36); Mean Corpuscular Hemoglobin 32.2 pg (26-34); Mean Corpuscular Volume 101.3 fl (80-100); Mean Platelet Volume 11.3 fl (7.4-10.4); Platelet Count Result 316 k/mm3 (150-375); Red Cell Distribution Width 24.6 % (11.5-14.5); White Blood Count 3.9 K/mm3 (4.5-10.0)
[2024-03-01 08:06] LABS: Anion Gap -3 mmol/L (4-12); Blood Urea Nitrogen 14 mg/dL (7-17); Calcium 8.3 mg/dL (8.4-10.2); Carbon Dioxide 34 mmol/L (22-30); Chloride 107 mmol/L (98-107); Estimated CRCL calculation 31 ml/min; Estimated Glomerular Filt Rate 60; Glucose 85 mg/dL (65-110); Potassium 4.4 mmol/L (3.4-5.0); Sodium 138 mmol/L (137-145)
[2024-03-01] MEDS: SERTRALINE HCL 50 MG TABLET PO (08:40)
[2024-03-01] MEDS: oxyBUTYnin CHLORIDE XL 5 MG TAB.ER.24 15 MG PO (08:40)
[2024-03-01] MEDS: GABAPENTIN 100 MG CAPSULE PO ×3 (08:40→16:44)
[2024-03-01] MEDS: azaTHIOprine 50 MG TABLET PO ×3 (08:42→16:44)
--- NOTE | 2024-03-01 09:33 | P.HP_ITS ---
H&P: HPI History of Present Illness Date/Time: 03/01/24 09:33 Chief Complaint: sob Narrative: 83 y.o female with pmh of ILD, breast ca, tremors, GABBY-cpap, osteoporosis, oab, GERD, BIANCA admitted from ed with c/o worsening sob. She is following with [facility] for her interstitial lung disease. report worsening of symptoms in the last few weeks. denies chest pain, n/v/d. Her biggest complain is physical deconditioning. pt is seen and examined. she is weak, alert, oriented. Decreased appetite lately. will work with pt/ot [facility] Past Medical History Medical History Accident due to mechanical fall without injury NICHOLAS positive (07/2020) Bilateral foot pain Breast cancer Cataracts, bilateral Cellulitis of left foot Cerumen debris on tympanic membrane of right ear Chronic interstitial lung disease Chronic kidney disease Chronic respiratory failure with hypoxia, on home oxygen therapy CMC arthritis, thumb, degenerative Counseling on health promotion and disease prevention Depression Encounter for medication management Essential tremor Former smoker Generalized osteoarthritis of multiple sites Greater trochanteric bursitis of right hip Jackson neuroma (1992) Mumps Night sweats Obstructive sleep apnea on CPAP Osteoporosis Other screening mammogram Overactive bladder Pain in left shoulder Post-menopausal Post-menopausal Pulmonary nodules Ribs, multiple fractures Right shoulder pain Screening cholesterol level Skin lesion of back URI with cough and congestion UTI (urinary tract infection) Surgical History Surgical History History of ankle surgery ORIF right ankle fracture. History of appendectomy History of lumpectomy of right breast (1985) History of rotator cuff surgery History of tonsillectomy (1952) History of total hysterectomy (1970) Family History Family History Father , 61 Heart failure Arthritis Pneumonia Mother , GI Bleed GI bleed Social History Social History Social History: Surrogate medical decision maker: Brice Rosa, . Code status: Full code. 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 Spiritual care concerns: No Meds Home Medications and Allergies Home Medications ?Medication ?Instructions ?Recorded ?Confirmed ?Type calcium carbonate (Calcium 600) 600 mg PO DAILY 09/20/19 02/29/24 History fish oil-dha-epa 1,200 mg-144 1 cap PO DAILY 09/20/19 02/29/24 History mg-216 mg capsule cholecalciferol (vitamin D3) 25 25 mcg PO DAILY 03/28/20 02/29/24 History mcg (1,000 unit) capsule oxybutynin chloride 15 mg 15 mg PO DAILY 03/28/20 02/29/24 History tablet,extended release 24 hr vitamin B complex (B 1 tablet PO DAILY 11/17/22 02/29/24 History Complex-Vitamin B12 tablet) coenzyme Q10 30 mg capsule 30 mg PO DAILY 03/27/23 02/29/24 History docusate sodium 50 mg capsule 50 mg PO BID 03/27/23 02/29/24 History krill oil 500 mg capsule 500 mg PO DAILY 03/27/23 02/29/24 History ipratropium bromide 21 mcg (0.03 2 spray intranasal TID 1 month #30 06/17/23 02/29/24 Rx %) nasal spray mL breast prosthetic #1 ea 08/06/23 02/29/24 Rx azathioprine 50 mg tablet 50 mg PO TID 09/11/23 02/29/24 History albuterol sulfate 90 mcg/actuation 1 puff inhalation Q6H PRN 11/09/23 02/29/24 Rx aerosol inhaler shortness of breath or wheezing 1 month #8.5 grams omeprazole 20 mg capsule,delayed 20 mg PO DAILY #90 caps 11/11/23 02/29/24 Rx release apixaban 5 mg tablet (Eliquis) 5 mg PO BID 01/04/24 02/29/24 History alendronate 70 mg tablet 70 mg PO WEEKLY 02/29/24 02/29/24 History gabapentin 100 mg capsule 100 mg PO TID 02/29/24 02/29/24 History sertraline 50 mg tablet 50 mg PO DAILY 02/29/24 02/29/24 History Allergies Allergy/AdvReac Type Severity Reaction Status Date / Time fluticasone (From Flonase) Allergy Intermediate Diarrhea Verified 02/01/24 14:57 tetanus toxoid, adsorbed Allergy Intermediate SWELLING/HI Verified 02/01/24 14:57 VES bacitracin Allergy Unknown unknown Verified 02/01/24 14:57 polymyxin B Allergy Unknown unknown Verified 02/01/24 14:57 Tetanus Vaccines and Toxoid Allergy Unknown unknown Verified 02/01/24 14:57 lidocaine AdvReac Intermediate DIARRHEA Verified 02/01/24 14:57 neomycin AdvReac Intermediate SKIN Verified 02/01/24 14:57 IRRITATION pramoxine AdvReac Intermediate SKIN Verified 02/01/24 14:57 IRRITATION Vital Signs Vital Signs - 24 hr 02/29/24 14:31 02/29/24 14:38 02/29/24 14:39 Temperature Pulse Rate 123 H Respiratory Rate 23 H Blood Pressure 101/88 Pulse Oximetry 100 48 L 100 Oxygen Delivery Non-Rebreather Mask Nasal Cannula Non-Rebreather Mask Oxygen Flow Rate 15 10 15 02/29/24 15:16 02/29/24 16:45 02/29/24 16:47 Temperature Pulse Rate 92 77 Respiratory Rate 29 H 31 H Blood Pressure 107/62 Pulse Oximetry 98 80 L 81 L Oxygen Delivery Nasal Cannula Oxygen Flow Rate 6 02/29/24 16:48 02/29/24 17:01 02/29/24 17:16 Temperature Pulse Rate 72 75 Respiratory Rate 25 H 24 H Blood Pressure 115/63 104/60 Pulse Oximetry 100 100 93 Oxygen Delivery Non-Rebreather Mask Oxygen Flow Rate 15 02/29/24 17:27 02/29/24 17:31 02/29/24 18:16 Temperature Pulse Rate 64 78 Respiratory Rate 28 H 26 H Blood Pressure 107/67 102/52 L Pulse Oximetry 100 90 92 Oxygen Delivery Nasal Cannula Oxygen Flow Rate 6 02/29/24 18:30 02/29/24 18:58 02/29/24 19:09 Temperature 97.5 F L 97.5 F L 97.6 F Pulse Rate 81 82 81 Respiratory Rate 27 H 27 H 26 H Blood Pressure 109/61 105/60 111/63 Pulse Oximetry 91 91 92 Oxygen Delivery Oxygen Flow Rate 02/29/24 19:10 02/29/24 20:22 02/29/24 20:35 Temperature 97.6 F 97.6 F 98 F Pulse Rate 81 80 93 Respiratory Rate 26 H 15 22 H Blood Pressure 111/60 110/68 115/63 Pulse Oximetry 92 93 91 Oxygen Delivery Oxygen Flow Rate 02/29/24 22:05 02/29/24 22:15 02/29/24 22:20 Temperature 97.2 F L 97.3 F L Pulse Rate 90 87 Respiratory Rate 20 20 Blood Pressure 128/52 L 146/72 H Pulse Oximetry 99 99 98 Oxygen Delivery CPAP Oxygen Flow Rate 7 02/29/24 22:38 02/29/24 23:20 03/01/24 00:20 Temperature 97 F L 97.1 F L Pulse Rate 83 83 Respiratory Rate 20 20 Blood Pressure 132/74 152/79 H Pulse Oximetry 98 99 99 Oxygen Delivery CPAP Oxygen Flow Rate 03/01/24 00:20 03/01/24 01:03 03/01/24 01:58 Temperature 97.1 F L 97.3 F L Pulse Rate 83 81 Respiratory Rate 20 16 Blood Pressure 152/79 H 135/72 Pulse Oximetry 99 98 Oxygen Delivery CPAP Oxygen Flow Rate 03/01/24 04:00 Temperature 97.6 F Pulse Rate 91 Respiratory Rate 20 Blood Pressure 124/75 Pulse Oximetry 90 Oxygen Delivery Oxygen Flow Rate H&P: Results Labs Labs: Short CBC 02/29/24 03/01/24 Range/Units 14:51 05:40 WBC 4.5 3.9 L (4.5-10.0) K/mm3 Hgb 7.5 L D 10.3 L (12.0-15.0) g/dL Hct 24.5 L 32.4 L (37.0-47.0) % Plt Count 283 D 316 (150-375) k/mm3 BMP 02/29/24 03/01/24 14:51 05:40 Sodium 139 138 Potassium 4.4 4.4 Chloride 101 107 Carbon Dioxide 37 H 34 H BUN 17 D 14 Creatinine 0.70 0.90 Glucose 108 85 Calcium 8.4 8.3 L Cardiac Enzymes 02/29/24 Range/Units 14:51 Troponin I < 0.012 (0.000-0.034) ng/mL Liver Function 02/29/24 Range/Units 14:51 Total Bilirubin 0.6 (0.2-1.3) mg/dL AST 42 H (14-36) U/L ALT 20 (6-35) U/L Alkaline Phosphatase 80 (38-126) U/L Albumin 3.1 L (3.5-5.1) g/dL Assessment and Plan Assessment and plan (1) CHF exacerbation: Code(s): I50.9 - Heart failure, unspecified Status: Acute Assessment and Plan: ekd done-nsr, qt ok no leg edema will monitor unsure when last echo was done- will order (2) Pulmonary embolism: Code(s): I26.99 - Other pulmonary embolism without acute cor pulmonale Status: Acute Assessment and Plan: h/o pe on eliquis-will continue (3) Generalized weakness: Code(s): R53.1 - Weakness Status: Acute Assessment and Plan: will add pt/to (4) Chronic respiratory failure with hypoxia, on home oxygen therapy: Code(s): J96.11 - Chronic respiratory failure with hypoxia; Z99.81 - Dependence on supp lemental oxygen Status: Chronic Assessment and Plan: home oxygen-7-8 l baseline currently on that duonebs chest xray: Worsening pulmonary opacities may represent edema or infection, overlying chronic severe interstitial changes. wbc is normal, stable-will not start antibiotics for now (5) Obstructive sleep apnea on CPAP: Code(s): G47.33 - Obstructive sleep apnea (adult) (pediatric); Z99.89 - Dependence on other enabling machines and devices Status: Chronic Assessment and Plan: continue home cpap Plan dvt prophylaxis: continue eliquis Quality VTE Prophylaxis VTE prophylaxis: pharmacologic ordered
[2024-03-01] MEDS: IPRATROPIUM NASAL SPRAY 0.03% 15 ML BOTTLE 2 SPRAY NASAL ×2 (13:03→16:44)
[2024-03-01] MEDS: APIXABAN 5 MG TABLET PO (21:01)
[2024-03-02] VITALS (7 sets, daily range): BP systolic 102–130; BP diastolic 49–64; PULSE 72–99; RESP 16–20; TEMP 36.2–37; O2SAT 92–99
--- NOTE | 2024-03-02 06:58 | P.PNIM_ITS ---
Progress Note: A&P Assessment and Plan (1) Chronic respiratory failure with hypoxia, on home oxygen therapy: Code(s): J96.11 - Chronic respiratory failure with hypoxia; Z99.81 - Dependence on supplemental oxygen Status: Chronic Assessment and Plan: requiring 9L NC, baseline 7-8 L duonebs chest xray: Worsening pulmonary opacities may represent edema or infection, overlying chronic severe interstitial changes. wbc is normal and afebrile, stable-will not start antibiotics for now (2) CHF exacerbation: Code(s): I50.9 - Heart failure, unspecified Status: Acute Assessment and Plan: - Symptoms: shortness of breath without lower extremity edema - Lasix 40 mg BID IV - BNP: 1570 - EKG: sinus rhythm, HR 79 without signs of ischemia - Chest XR: Worsening pulmonary opacities may represent edema or infection, overlying chronic severe interstitial changes. - Echo: LVEF 65-70% with grade I diastolic dysfunction - Incentive spirometer - Monitor vital signs, I&Os, BUN/creatinine, daily weights, neuro status and patient is a fall risk - Monitor serum electrolytes, Keep serum Potassium>4 and serum Magnesium>2 and CBC (3) Pulmonary embolism: Code(s): I26.99 - Other pulmonary embolism without acute cor pulmonale Status: Acute Assessment and Plan: h/o pe on eliquis-will continue (4) Generalized weakness: Code(s): R53.1 - Weakness Status: Acute Assessment and Plan: will add pt/ot (5) Obstructive sleep apnea on CPAP: Code(s): G47.33 - Obstructive sleep apnea (adult) (pediatric); Z99.89 - Dependence on other enabling machines and devices Status: Chronic Assessment and Plan: continue home cpap Time Spent With Patient Time with patient: 25 - 35 minutes Subjective Date/time seen: 03/02/24 06:58 Interval history: 83 y.o female with pmh of ILD (follows at [facility]), breast cancer, tremors, GABBY- cpap, osteoporosis, oab, GERD, BIANCA admitted from ed with c/o worsening shortness of breath. Patient is pleasant lying comfortably in her bed with her at bedside. She continues to endorse shortness of breath but notes that improved since admission. She remains on 9 L nasal cannula, baseline is 7-8 L. Patient was started on Lasix for ongoing pulmonary edema. She has no other complaints denying chest pain, palpitations, nausea/vomiting, abdominal pain. Per patients her son received a phone call from Dr. Marcos and patient is to discontinue Imuran. Review of Systems Review of Systems: All systems reviewed & are unremarkable except as noted in HPI and below Exam Narrative: AF HR 80 RR 18 SPO2 96 (9L NC) BP 116/49 General: female in no acute respiratory distress who is nontoxic appearing, sitting up in bed HEENT: Normocephalic. Atraumatic. Extraocular movement intact. Sclera clear and anicteric. No facial asymmetry. Chest: Lungs have course crackles to auscultation bilaterally. No wheezes. CV: Heart was regular rate and rhythm. S1-S2. No murmurs, gallops, or rubs. Abd: Abdomen was soft. Nontender. Nondistended. Positive bowel sounds. No organomegaly or masses. Ext: No clubbing, cyanosis, or edema. 2+ DP pulses bilaterally. Neuro: Patient is alert and oriented x4. Speech is clear. Objective Data Vital Signs Vital Signs: Vital Signs - 24 hr 03/01/24 08:00 03/01/24 08:40 03/01/24 12:00 Temperature 97.6 F 99 F Pulse Rate 88 74 Respiratory Rate 20 19 Blood Pressure 128/72 114/59 L Pulse Oximetry 90 93 96 Oxygen Delivery High Flow Nasal Cannula Oxygen Flow Rate 7 03/01/24 13:25 03/01/24 16:00 03/01/24 20:00 Temperature 98.6 F 98.3 F Pulse Rate 72 83 Respiratory Rate 19 18 Blood Pressure 118/62 121/53 L Pulse Oximetry 97 92 Oxygen Delivery Nasal Cannula Oxygen Flow Rate 8 03/01/24 20:00 03/01/24 22:50 03/01/24 23:54 Temperature 98.2 F Pulse Rate 83 88 Respiratory Rate 18 Blood Pressure 122/55 L Pulse Oximetry 92 92 95 Oxygen Delivery Nasal Cannula CPAP Oxygen Flow Rate 9 03/02/24 03:48 Temperature 98.6 F Pulse Rate 72 Respiratory Rate 20 Blood Pressure 114/58 L Pulse Oximetry 99 Oxygen Delivery Oxygen Flow Rate Intake/Output Intake/Output: Intake & Output 02/28/24 02/29/24 03/01/24 03/02/24 23:59 23:59 23:59 23:59 Intake Total 386 1278 240 Output Total 300 200 Balance 386 978 40 Meds/Results Medications: Active Medications Generic Name Dose Route Start Last Admin Trade Name Freq PRN Reason Stop Dose Admin Acetaminophen 650 mg 02/29/24 18:30 Acetaminophen 325 Mg Tablet PO Q4H PRN Mild Pain (1-3) or Fever Hydrocodone Bitart/Acetaminophen 1 tab 02/29/24 18:30 Hydrocodone/Acetaminophen (*Crx) 5-325 Mg Tablet PO Q4H PRN Pain Rated 4-6 Albuterol/Ipratropium 3 ml 02/29/24 22:20 Ipratropium 0.5 Mg/Albuterol Sulfate 2.5 Mg Ampul.Neb 3 Ml INHALATION Q6HRT PRN Shortness of breath Apixaban 5 mg 03/01/24 21:00 03/01/24 21:01 Apixaban 5 Mg Tablet PO 5 mg Q12HR JOVITA Administration Azathioprine 50 mg 03/01/24 09:00 03/01/24 16:44 Azathioprine 50 Mg Tablet PO 50 mg TID JOVITA Administration Gabapentin 100 mg 03/01/24 09:00 03/01/24 16:44 Gabapentin 100 Mg Capsule PO 100 mg TID JOVITA Administration Ipratropium [place] 2 spray 03/01/24 09:00 03/01/24 16:44 Ipratropium Nasal [place] 0.03% 15 Ml Bottle NASAL 2 spray TID JOVITA Administration Ondansetron HCl 4 mg 02/29/24 18:30 Ondansetron Inj 4 Mg/2 Ml Vial IV PUSH Q4H PRN Nausea Oxybutynin Chloride 15 mg 03/01/24 09:00 03/01/24 08:40 Oxybutynin Chloride Xl 5 Mg Tab.Er.24 PO 15 mg DAILY JOVITA Administration Pantoprazole Sodium 40 mg 02/29/24 22:20 03/01/24 21:01 Pantoprazole Sodium Iv 40 Mg Vial IV PUSH 40 mg Q12HR JOVITA Administration Pantoprazole Sodium 40 mg 03/02/24 09:00 Pantoprazole 40 Mg Tablet PO QAM JOVITA Perflutren Lipid Microsphere 0 ml 03/01/24 14:49 Perflutren Lipid Microspheres 1.5 Ml Vial Diluted To 10 Ml Total Volume IV PUSH 03/04/24 14:49 ONCE PRN adequate visualization Protocol Sertraline HCl 50 mg 03/01/24 09:00 03/01/24 08:40 Sertraline Hcl 50 Mg Tablet PO 50 mg DAILY JOVITA Administration Radiology Results: ITS Impressions Chest X-Ray 02/29/24 15:54 IMPRESSION: Worsening pulmonary opacities may represent edema or infection, overlying chronic severe interstitial changes. Labs Labs: Laboratory Results - last 24 hr 03/01/24 05:40 WBC 3.9 L RBC 3.20 L Hgb 10.3 L Hct 32.4 L MCV 101.3 H D MCH 32.2 MCHC 31.8 L RDW 24.6 H Plt Count 316 MPV 11.3 H Sodium 138 Potassium 4.4 Chloride 107 Carbon Dioxide 34 H Anion Gap -3 L BUN 14 Creatinine 0.90 Estim Creat Clear Calc 31 Estimated GFR 60 Glucose 85 Calcium 8.3 L Quality VTE Prophylaxis VTE prophylaxis: pharmacologic ordered
[2024-03-02 07:04] LABS: Basophils Absolute Auto 0.1 K/mm3 (0.0-0.1); Basophils Percent Auto 1.2 % (0.2-1.2); Eosinophils Absolute Auto 0.1 K/mm3 (0-0.3); Eosinophils Percent Auto 1.9 % (0-4.4); Hematocrit 33.7 % (37.0-47.0); Hemoglobin 10.6 g/dL (12.0-15.0); Immature Granulocyte Absolute 0.03 K/mm3 (0.00-0.031); Immature Granulocyte Percent A 0.7 % (0-0.5); Lymphocytes Absolute Auto 0.67 K/mm3 (0.9-3.2); Lymphocytes Percent Auto 16.3 % (18.3-44.2); Mean Corpuscular HGB Conc 31.5 g/dl (32-36); Mean Corpuscular Hemoglobin 32.3 pg (26-34); Mean Corpuscular Volume 102.7 fl (80-100); Mean Platelet Volume 11.6 fl (7.4-10.4); Monocytes Absolute Auto 0.6 K/mm3 (0.1-0.6); Monocytes Percent Auto 14.1 % (2.6-8.5); Neutrophils Absolute Auto 2.7 K/mm3 (1.3-6.7); Neutrophils Percent Auto 65.8 % (45.5-73.1); Platelet Count Result 269 k/mm3 (150-375); Red Blood Count 3.28 M/mm3 (4.2-5.4); Red Cell Distribution Width 23.9 % (11.5-14.5); White Blood Count 4.1 K/mm3 (4.5-10.0)
[2024-03-02 07:21] LABS: Alanine Aminotransferase 19 U/L (6-35); Albumin Level 2.8 g/dL (3.5-5.1); Alkaline Phosphatase 68 U/L (38-126); Anion Gap -4 mmol/L (4-12); Aspartate Amino Transferase 39 U/L (14-36); Bilirubin,Total 0.8 mg/dL (0.2-1.3); Blood Urea Nitrogen 14 mg/dL (7-17); Calcium 8.3 mg/dL (8.4-10.2); Carbon Dioxide 39 mmol/L (22-30); Chloride 105 mmol/L (98-107); Estimated CRCL calculation 31 ml/min; Estimated Glomerular Filt Rate 60; Glucose 91 mg/dL (65-110); Potassium 5.4 mmol/L (3.4-5.0); Sodium 140 mmol/L (137-145)
[2024-03-02 07:44] LABS: Anisocytosis 1+; Platelet Estimate Adequate (Adequate)
[2024-03-02 07:45] LABS: Schistocytes None Seen
[2024-03-02] MEDS: oxyBUTYnin CHLORIDE XL 5 MG TAB.ER.24 15 MG PO (08:47)
[2024-03-02] MEDS: PANTOPRAZOLE 40 MG TABLET PO (08:48)
[2024-03-02] MEDS: GABAPENTIN 100 MG CAPSULE PO ×2 (08:48→17:18)
[2024-03-02] MEDS: SERTRALINE HCL 50 MG TABLET PO (08:48)
[2024-03-02] MEDS: APIXABAN 5 MG TABLET PO ×2 (08:48→20:21)
[2024-03-02] MEDS: FUROSEMIDE INJ 40 MG/4 ML VIAL IV PUSH ×2 (08:48→17:18)
[2024-03-02] MEDS: IPRATROPIUM NASAL SPRAY 0.03% 15 ML BOTTLE 2 SPRAY NASAL ×3 (08:48→17:18)
--- NOTE | 2024-03-02 10:32 | PCPTNOTE ---
attempted PT eval, pt's O2 saturation dropping into the 70's and sometimes 40's with sitting up EOB with tech since last night, per RN pt may benefit from staying in bed for now till respiratory issues get resolved, will follow
[2024-03-02 20:32] LABS: Glucose Point of Care 139 mg/dl (65-105)
[2024-03-02] MEDS: ACETAMINOPHEN 325 MG TABLET 650 MG PO (21:24)
[2024-03-03] VITALS (8 sets, daily range): BP systolic 100–141; BP diastolic 60–78; PULSE 70–108; RESP 16; TEMP 36–36.8; O2SAT 95–100
[2024-03-03 06:08] LABS: Basophils Absolute Auto 0.1 K/mm3 (0.0-0.1); Basophils Percent Auto 1.2 % (0.2-1.2); Eosinophils Absolute Auto 0.1 K/mm3 (0-0.3); Eosinophils Percent Auto 1.5 % (0-4.4); Hematocrit 39.3 % (37.0-47.0); Hemoglobin 12.6 g/dL (12.0-15.0); Immature Granulocyte Absolute 0.03 K/mm3 (0.00-0.031); Immature Granulocyte Percent A 0.6 % (0-0.5); Immature Platelet Fraction Pct 2.1 % (0.9-11.2); Lymphocytes Percent Auto 19.3 % (18.3-44.2); Mean Corpuscular HGB Conc 32.1 g/dl (32-36); Mean Corpuscular Hemoglobin 32.9 pg (26-34); Mean Corpuscular Volume 102.6 fl (80-100); Mean Platelet Volume 12.7 fl (7.4-10.4); Monocytes Absolute Auto 0.8 K/mm3 (0.1-0.6); Monocytes Percent Auto 14.6 % (2.6-8.5); Neutrophils Absolute Auto 3.3 K/mm3 (1.3-6.7); Neutrophils Percent Auto 62.8 % (45.5-73.1); Nucleated Red Blood Cells Perc 0.6 % (0.0-0.2); Platelet Count Result 420 k/mm3 (150-375); Red Blood Count 3.83 M/mm3 (4.2-5.4); Red Cell Distribution Width 22.5 % (11.5-14.5); White Blood Count 5.2 K/mm3 (4.5-10.0)
[2024-03-03 06:19] LABS: Alanine Aminotransferase 23 U/L (6-35); Albumin Level 3.2 g/dL (3.5-5.1); Alkaline Phosphatase 76 U/L (38-126); Aspartate Amino Transferase 42 U/L (14-36); Bilirubin,Total 0.8 mg/dL (0.2-1.3); Blood Urea Nitrogen 22 mg/dL (7-17); Calcium 8.7 mg/dL (8.4-10.2); Carbon Dioxide > 40 mmol/L (22-30); Chloride 97 mmol/L (98-107); Estimated CRCL calculation 28 ml/min; Estimated Glomerular Filt Rate 53; Glucose 117 mg/dL (65-110); Potassium 4.6 mmol/L (3.4-5.0); Sodium 139 mmol/L (137-145)
[2024-03-03 06:48] LABS: Anisocytosis 1+; Platelet Estimate Adequate (Adequate); Schistocytes None Seen
--- NOTE | 2024-03-03 07:08 | P.PNIM_ITS ---
Progress Note: A&P Assessment and Plan (1) Chronic respiratory failure with hypoxia, on home oxygen therapy: Code(s): J96.11 - Chronic respiratory failure with hypoxia; Z99.81 - Dependence on supplemental oxygen Status: Chronic Assessment and Plan: requiring 9L NC, baseline 7-8 L duonebs chest xray: Worsening pulmonary opacities may represent edema or infection, overlying chronic severe interstitial changes. wbc is normal and afebrile, stable-will not start antibiotics for now (2) CHF exacerbation: Code(s): I50.9 - Heart failure, unspecified Status: Acute Assessment and Plan: - Symptoms: shortness of breath without lower extremity edema - Lasix 40 mg BID IV - BNP: 1570 - EKG: sinus rhythm, HR 79 without signs of ischemia - Chest XR: Worsening pulmonary opacities may represent edema or infection, overlying chronic severe interstitial changes. - Echo: LVEF 65-70% with grade I diastolic dysfunction - Incentive spirometer - Monitor vital signs, I&Os, BUN/creatinine, daily weights, neuro status and patient is a fall risk - Monitor serum electrolytes, Keep serum Potassium>4 and serum Magnesium>2 and CBC (3) Pulmonary embolism: Code(s): I26.99 - Other pulmonary embolism without acute cor pulmonale Status: Acute Assessment and Plan: h/o pe on eliquis patient states that she has not missed a dose of eliquis, less concerned about PE given the consistent eliquis use and improvement with lasix will continue (4) Generalized weakness: Code(s): R53.1 - Weakness Status: Acute Assessment and Plan: will add pt/ot (5) Obstructive sleep apnea on CPAP: Code(s): G47.33 - Obstructive sleep apnea (adult) (pediatric); Z99.89 - Dependence on other enabling machines and devices Status: Chronic Assessment and Plan: continue home cpap Time Spent With Patient Time with patient: 25 - 35 minutes Subjective Date/time seen: 03/03/24 07:08 Interval history: 83 y.o female with pmh of ILD (follows at [facility]), breast cancer, tremors, GABBY- cpap, osteoporosis, oab, GERD, BIANCA admitted from ed with c/o worsening shortness of breath. Patient is pleasant lying in bed with at bedside. She states that she is feeling better today and is not as short of breath. She remains on slightly increased oxygen supplementation from baseline. She has no other complaints denying chest pain, palpitation, nausea/vomiting, and abdominal pain. Review of Systems Review of Systems: All systems reviewed & are unremarkable except as noted in HPI and below Exam Narrative: AF HR 100 RR 16 SpO2 97 9 L NC BP 105/61 General: female in no acute respiratory distress who is nontoxic appearing, sitting up in bed HEENT: Normocephalic. Atraumatic. Extraocular movement intact. Sclera clear and anicteric. No facial asymmetry. Chest: Lungs are clear in the upper, diminished in the middle and has course crackles to auscultation bilateral lower lobes. No wheezes. CV: Heart was regular rate and rhythm. S1-S2. No murmurs, gallops, or rubs. Abd: Abdomen was soft. Nontender. Nondistended. Positive bowel sounds. No organomegaly or masses. Ext: No clubbing, cyanosis, or edema. 2+ DP pulses bilaterally. Neuro: Patient is alert and oriented x4. Speech is clear. Objective Data Vital Signs Vital Signs: Vital Signs - 24 hr 03/02/24 08:00 03/02/24 08:45 03/02/24 12:00 Temperature 97.2 F L 98.5 F Pulse Rate 80 99 Respiratory Rate 18 18 Blood Pressure 116/49 L 102/61 Pulse Oximetry 97 96 98 Oxygen Delivery High Flow Nasal Cannula Oxygen Flow Rate 9 03/02/24 16:00 03/02/24 19:35 03/02/24 20:00 Temperature 97.7 F Pulse Rate 94 89 Respiratory Rate 20 16 Blood Pressure 130/64 107/60 Pulse Oximetry 93 92 92 Oxygen Delivery CPAP Oxygen Flow Rate 10 03/03/24 00:00 03/03/24 04:00 Temperature 97.7 F 98.2 F Pulse Rate 100 70 Respiratory Rate 16 16 Blood Pressure 102/60 141/78 H Pulse Oximetry 98 95 Oxygen Delivery Oxygen Flow Rate Intake/Output Intake/Output: Intake & Output 02/29/24 03/01/24 03/02/24 03/03/24 23:59 23:59 23:59 23:59 Intake Total 386 1278 1460 400 Output Total 300 2400 600 Balance 386 835 -044 -200 Meds/Results Medications: Active Medications Generic Name Dose Route Start Last Admin Trade Name Freq PRN Reason Stop Dose Admin Acetaminophen 650 mg 02/29/24 18:30 03/02/24 21:24 Acetaminophen 325 Mg Tablet PO 650 mg Q4H PRN Administration Mild Pain (1-3) or Fever Hydrocodone Bitart/Acetaminophen 1 tab 02/29/24 18:30 Hydrocodone/Acetaminophen (*Crx) 5-325 Mg Tablet PO Q4H PRN Pain Rated 4-6 Albuterol/Ipratropium 3 ml 02/29/24 22:20 Ipratropium 0.5 Mg/Albuterol Sulfate 2.5 Mg Ampul.Neb 3 Ml INHALATION Q6HRT PRN Shortness of breath Apixaban 5 mg 03/01/24 21:00 03/02/24 20:21 Apixaban 5 Mg Tablet PO 5 mg Q12HR JOVITA Administration Furosemide 40 mg 03/02/24 09:00 03/02/24 17:18 Furosemide Inj 40 Mg/4 Ml Vial IV PUSH 40 mg BID JOVITA Administration Gabapentin 100 mg 03/01/24 09:00 03/02/24 17:18 Gabapentin 100 Mg Capsule PO 100 mg TID JOVITA Administration Ipratropium [place] 2 spray 03/01/24 09:00 03/02/24 17:18 Ipratropium Nasal [place] 0.03% 15 Ml Bottle NASAL 2 spray TID JOVITA Administration Ondansetron HCl 4 mg 02/29/24 18:30 Ondansetron Inj 4 Mg/2 Ml Vial IV PUSH Q4H PRN Nausea Oxybutynin Chloride 15 mg 03/01/24 09:00 03/02/24 08:47 Oxybutynin Chloride Xl 5 Mg Tab.Er.24 PO 15 mg DAILY JOVITA Administration Pantoprazole Sodium 40 mg 03/02/24 09:00 03/02/24 08:48 Pantoprazole 40 Mg Tablet PO 40 mg QAM JOVITA Administration Perflutren Lipid Microsphere 0 ml 03/01/24 14:49 Perflutren Lipid Microspheres 1.5 Ml Vial Diluted To 10 Ml Total Volume IV PUSH 03/04/24 14:49 ONCE PRN adequate visualization Protocol Sertraline HCl 50 mg 03/01/24 09:00 03/02/24 08:48 Sertraline Hcl 50 Mg Tablet PO 50 mg DAILY JOVITA Administration Radiology Results: ITS Impressions Chest X-Ray 02/29/24 15:54 IMPRESSION: Worsening pulmonary opacities may represent edema or infection, overlying chronic severe interstitial changes. Labs Labs: Laboratory Results - last 24 hr 03/02/24 03/02/24 03/03/24 06:57 19:31 05:56 WBC 4.1 L 5.2 RBC 3.28 L 3.83 L Hgb 10.6 L 12.6 Hct 33.7 L 39.3 MCV 102.7 H 102.6 H MCH 32.3 32.9 MCHC 31.5 L 32.1 RDW 23.9 H 22.5 H Plt Count 269 420 H D MPV 11.6 H 12.7 H Immature Gran % (Auto) 0.7 H 0.6 H Neut % (Auto) 65.8 62.8 Lymph % (Auto) 16.3 L 19.3 [place] % (Auto) 14.1 H 14.6 H Eos % (Auto) 1.9 1.5 Baso % (Auto) 1.2 1.2 Lymph # (Auto) 0.67 L 1.00 [place] # (Auto) 0.6 0.8 H Eos # (Auto) 0.1 0.1 Baso # (Auto) 0.1 0.1 Abs Immat Gran (auto) 0.03 0.03 Absolute Neuts (auto) 2.7 3.3 Absolute Nucleated RBC 0.040 H 0.030 H Nucleated RBC % 1.0 H 0.6 H Platelet Estimate Adequate Adequate % Immature Plt Fraction 2.1 Anisocytosis 1+ 1+ Schistocytes None seen None seen Sodium 140 139 Potassium 5.4 H 4.6 Chloride 105 97 L Carbon Dioxide 39 H > 40 H Anion Gap -4 L BUN 14 22 H Creatinine 0.90 1.00 Estim Creat Clear Calc 31 28 Estimated GFR 60 53 L Glucose 91 117 H POC Capillary Glucose 139 H Calcium 8.3 L 8.7 Total Bilirubin 0.8 0.8 AST 39 H 42 H ALT 19 23 Alkaline Phosphatase 68 76 Total Protein 6.0 L 7.0 Albumin 2.8 L 3.2 L Quality VTE Prophylaxis VTE prophylaxis: pharmacologic ordered
[2024-03-03] MEDS: FUROSEMIDE INJ 40 MG/4 ML VIAL IV PUSH ×2 (09:18→16:15)
[2024-03-03] MEDS: oxyBUTYnin CHLORIDE XL 5 MG TAB.ER.24 15 MG PO (09:19)
[2024-03-03] MEDS: SERTRALINE HCL 50 MG TABLET PO (09:19)
[2024-03-03] MEDS: GABAPENTIN 100 MG CAPSULE PO ×3 (09:19→16:16)
[2024-03-03] MEDS: APIXABAN 5 MG TABLET PO ×2 (09:19→20:13)
[2024-03-03] MEDS: IPRATROPIUM NASAL SPRAY 0.03% 15 ML BOTTLE 2 SPRAY NASAL ×3 (09:19→16:16)
[2024-03-03] MEDS: PANTOPRAZOLE 40 MG TABLET PO (09:19)
--- NOTE | 2024-03-03 12:44 | PCOTNOTE ---
The patient treatment was not able to be completed patient just got set up for lunch. Patient reports she is willing to try after she eats. Will plan to continue treatment per plan of care.
[2024-03-04] VITALS (11 sets, daily range): BP systolic 90–120; BP diastolic 51–74; PULSE 73–105; RESP 14–18; TEMP 36.3–37.1; O2SAT 93–100
[2024-03-04 05:38] LABS: Basophils Absolute Auto 0.1 K/mm3 (0.0-0.1); Basophils Percent Auto 1.1 % (0.2-1.2); Eosinophils Absolute Auto 0.1 K/mm3 (0-0.3); Eosinophils Percent Auto 2.5 % (0-4.4); Hematocrit 36.9 % (37.0-47.0); Hemoglobin 11.8 g/dL (12.0-15.0); Immature Granulocyte Absolute 0.05 K/mm3 (0.00-0.031); Immature Granulocyte Percent A 1.1 % (0-0.5); Lymphocytes Absolute Auto 0.75 K/mm3 (0.9-3.2); Mean Corpuscular Hemoglobin 32.6 pg (26-34); Mean Corpuscular Volume 101.9 fl (80-100); Mean Platelet Volume 11.2 fl (7.4-10.4); Monocytes Absolute Auto 0.7 K/mm3 (0.1-0.6); Monocytes Percent Auto 15.9 % (2.6-8.5); Neutrophils Absolute Auto 2.8 K/mm3 (1.3-6.7); Neutrophils Percent Auto 62.4 % (45.5-73.1); Platelet Count Result 216 k/mm3 (150-375); Red Blood Count 3.62 M/mm3 (4.2-5.4); Red Cell Distribution Width 21.2 % (11.5-14.5); White Blood Count 4.4 K/mm3 (4.5-10.0)
[2024-03-04 05:51] LABS: Alanine Aminotransferase 23 U/L (6-35); Alkaline Phosphatase 72 U/L (38-126); Aspartate Amino Transferase 40 U/L (14-36); Bilirubin,Total 0.7 mg/dL (0.2-1.3); Blood Urea Nitrogen 28 mg/dL (7-17); Calcium 8.5 mg/dL (8.4-10.2); Carbon Dioxide > 40 mmol/L (22-30); Chloride 94 mmol/L (98-107); Estimated CRCL calculation 31 ml/min; Estimated Glomerular Filt Rate 60; Glucose 103 mg/dL (65-110); Potassium 3.9 mmol/L (3.4-5.0); Sodium 135 mmol/L (137-145)
--- NOTE | 2024-03-04 08:54 | P.PNIM_ITS ---
Progress Note: A&P Assessment and Plan (1) Chronic respiratory failure with hypoxia, on home oxygen therapy: Code(s): J96.11 - Chronic respiratory failure with hypoxia; Z99.81 - Dependence on supplemental oxygen Status: Chronic Assessment and Plan: requiring 8L NC, baseline 7-8 L duonebs chest xray: Worsening pulmonary opacities may represent edema or infection, overlying chronic severe interstitial changes. wbc is normal and afebrile, stable-will not start antibiotics for now (2) CHF exacerbation: Code(s): I50.9 - Heart failure, unspecified Status: Acute Assessment and Plan: - Symptoms: shortness of breath without lower extremity edema - Lasix 40 mg daily IV, patient was hypotensive this am and dose held - BNP: 1570 - EKG: sinus rhythm, HR 79 without signs of ischemia - Chest XR: Worsening pulmonary opacities may represent edema or infection, overlying chronic severe interstitial changes. - Repeat chest XR in the am - Echo: LVEF 65-70% with grade I diastolic dysfunction - Incentive spirometer - Monitor vital signs, I&Os, BUN/creatinine, daily weights, neuro status and patient is a fall risk - Monitor serum electrolytes, Keep serum Potassium>4 and serum Magnesium>2 and CBC (3) Pulmonary embolism: Code(s): I26.99 - Other pulmonary embolism without acute cor pulmonale Status: Acute Assessment and Plan: h/o pe on eliquis patient states that she has not missed a dose of eliquis, less concerned about PE given the consistent eliquis use and improvement with lasix will continue (4) Generalized weakness: Code(s): R53.1 - Weakness Status: Acute Assessment and Plan: will add pt/ot (5) Obstructive sleep apnea on CPAP: Code(s): G47.33 - Obstructive sleep apnea (adult) (pediatric); Z99.89 - Dependence on other enabling machines and devices Status: Chronic Assessment and Plan: continue home cpap Time Spent With Patient Time with patient: 25 - 35 minutes Subjective Date/time seen: 03/04/24 08:54 Interval history: 83 y.o female with pmh of ILD (follows at [facility]), breast cancer, tremors, GABBY- cpap, osteoporosis, oab, GERD, BIANCA admitted from ed with c/o worsening shortness of breath. Patient is pleasant sitting up in her chair with her at bedside. She states that she is feeling better today and is less short of breath. She has been weaned back down to her baseline O2 of 8L NC. She has no other complaints denying chest pain, palpitations, nausea/vomiting and abdominal pain. Review of Systems Review of Systems: All systems reviewed & are unremarkable except as noted in HPI and below Exam Narrative: AF HR 100 RR 14 SpO2 93 8L NC BP 102/66 General: female in no acute respiratory distress who is nontoxic appearing, sitting up in bed HEENT: Normocephalic. Atraumatic. Extraocular movement intact. Sclera clear and anicteric. No facial asymmetry. Chest: Lungs are clear in the upper, diminished in the middle and has course crackles to auscultation bilateral lower lobes. No wheezes. CV: Heart was regular rate and rhythm. S1-S2. No murmurs, gallops, or rubs. Abd: Abdomen was soft. Nontender. Nondistended. Positive bowel sounds. No organomegaly or masses. Ext: No clubbing, cyanosis, or edema. 2+ DP pulses bilaterally. Neuro: Patient is alert and oriented x4. Speech is clear. Objective Data Vital Signs Vital Signs: Vital Signs - 24 hr 03/03/24 09:19 03/03/24 10:03 03/03/24 11:58 Temperature 97.4 F L Pulse Rate 100 Respiratory Rate 16 16 Blood Pressure 105/61 Pulse Oximetry 100 97 Oxygen Delivery Nasal Cannula High Flow Nasal Cannula Oxygen Flow Rate 10 10 03/03/24 15:39 03/03/24 19:43 03/03/24 20:08 Temperature 96.8 F L 97.8 F Pulse Rate 107 H 108 H Respiratory Rate 16 16 Blood Pressure 100/61 102/61 Pulse Oximetry 97 98 98 Oxygen Delivery Nasal Cannula Oxygen Flow Rate 9 03/04/24 00:00 03/04/24 00:47 03/04/24 04:40 Temperature 97.4 F L 98.0 F Pulse Rate 103 H 88 73 Respiratory Rate 16 18 Blood Pressure 111/67 117/60 Pulse Oximetry 100 95 100 Oxygen Delivery CPAP Oxygen Flow Rate 03/04/24 07:54 Temperature 97.3 F L Pulse Rate 90 Respiratory Rate 14 Blood Pressure 90/74 L Pulse Oximetry 100 Oxygen Delivery Oxygen Flow Rate Intake/Output Intake/Output: Intake & Output 03/01/24 03/02/24 03/03/24 03/04/24 23:59 23:59 23:59 23:59 Intake Total 1278 1460 1210 550 Output Total 300 2400 1200 600 Balance 978 -940 10 -50 Meds/Results Medications: Active Medications Generic Name Dose Route Start Last Admin Trade Name Freq PRN Reason Stop Dose Admin Acetaminophen 650 mg 02/29/24 18:30 03/02/24 21:24 Acetaminophen 325 Mg Tablet PO 650 mg Q4H PRN Administration Mild Pain (1-3) or Fever Hydrocodone Bitart/Acetaminophen 1 tab 02/29/24 18:30 Hydrocodone/Acetaminophen (*Crx) 5-325 Mg Tablet PO Q4H PRN Pain Rated 4-6 Albuterol/Ipratropium 3 ml 02/29/24 22:20 Ipratropium 0.5 Mg/Albuterol Sulfate 2.5 Mg Ampul.Neb 3 Ml INHALATION Q6HRT PRN Shortness of breath Apixaban 5 mg 03/01/24 21:00 03/03/24 20:13 Apixaban 5 Mg Tablet PO 5 mg Q12HR JOVITA Administration Furosemide 40 mg 03/04/24 09:00 Furosemide Inj 40 Mg/4 Ml Vial IV PUSH DAILY JOVITA Gabapentin 100 mg 03/01/24 09:00 03/03/24 16:16 Gabapentin 100 Mg Capsule PO 100 mg TID JOVITA Administration Ipratropium [place] 2 spray 03/01/24 09:00 03/03/24 16:16 Ipratropium Nasal [place] 0.03% 15 Ml Bottle NASAL 2 spray TID JOVITA Administration Ondansetron HCl 4 mg 02/29/24 18:30 Ondansetron Inj 4 Mg/2 Ml Vial IV PUSH Q4H PRN Nausea Oxybutynin Chloride 15 mg 03/01/24 09:00 03/03/24 09:19 Oxybutynin Chloride Xl 5 Mg Tab.Er.24 PO 15 mg DAILY JOVITA Administration Pantoprazole Sodium 40 mg 03/02/24 09:00 03/03/24 09:19 Pantoprazole 40 Mg Tablet PO 40 mg QAM JOVITA Administration Perflutren Lipid Microsphere 0 ml 03/01/24 14:49 Perflutren Lipid Microspheres 1.5 Ml Vial Diluted To 10 Ml Total Volume IV PUSH 03/04/24 14:49 ONCE PRN adequate visualization Protocol Sertraline HCl 50 mg 03/01/24 09:00 03/03/24 09:19 Sertraline Hcl 50 Mg Tablet PO 50 mg DAILY JOVITA Administration Radiology Results: ITS Impressions Chest X-Ray 02/29/24 15:54 IMPRESSION: Worsening pulmonary opacities may represent edema or infection, overlying chronic severe interstitial changes. Labs Labs: Laboratory Results - last 24 hr 03/04/24 05:06 WBC 4.4 L RBC 3.62 L Hgb 11.8 L Hct 36.9 L MCV 101.9 H MCH 32.6 MCHC 32.0 RDW 21.2 H Plt Count 216 MPV 11.2 H Immature Gran % (Auto) 1.1 H Neut % (Auto) 62.4 Lymph % (Auto) 17.0 L [place] % (Auto) 15.9 H Eos % (Auto) 2.5 Baso % (Auto) 1.1 Lymph # (Auto) 0.75 L [place] # (Auto) 0.7 H Eos # (Auto) 0.1 Baso # (Auto) 0.1 Abs Immat Gran (auto) 0.05 H Absolute Neuts (auto) 2.8 Absolute Nucleated RBC 0.000 Nucleated RBC % 0.0 Sodium 135 L Potassium 3.9 Chloride 94 L Carbon Dioxide > 40 H Anion Gap BUN 28 H Creatinine 0.90 Estim Creat Clear Calc 31 Estimated GFR 60 Glucose 103 Calcium 8.5 Total Bilirubin 0.7 AST 40 H ALT 23 Alkaline Phosphatase 72 Total Protein 6.0 L Albumin 3.0 L Quality VTE Prophylaxis VTE prophylaxis: pharmacologic ordered
[2024-03-04] MEDS: APIXABAN 5 MG TABLET PO ×2 (09:55→21:36)
[2024-03-04] MEDS: GABAPENTIN 100 MG CAPSULE PO ×3 (09:55→16:59)
[2024-03-04] MEDS: PANTOPRAZOLE 40 MG TABLET PO (09:56)
[2024-03-04] MEDS: SERTRALINE HCL 50 MG TABLET PO (09:56)
[2024-03-04] MEDS: oxyBUTYnin CHLORIDE XL 5 MG TAB.ER.24 15 MG PO (09:56)
[2024-03-04] MEDS: IPRATROPIUM NASAL SPRAY 0.03% 15 ML BOTTLE 2 SPRAY NASAL ×3 (09:58→17:00)
[2024-03-05] VITALS (10 sets, daily range): BP systolic 93–101; BP diastolic 57–60; PULSE 78–98; RESP 16–24; TEMP 36.3–36.8; O2SAT 94–100
[2024-03-05 05:27] LABS: Basophils Absolute Auto 0.1 K/mm3 (0.0-0.1); Basophils Percent Auto 1.2 % (0.2-1.2); Eosinophils Absolute Auto 0.1 K/mm3 (0-0.3); Eosinophils Percent Auto 2.4 % (0-4.4); Hematocrit 37.1 % (37.0-47.0); Hemoglobin 12.1 g/dL (12.0-15.0); Immature Granulocyte Absolute 0.05 K/mm3 (0.00-0.031); Immature Granulocyte Percent A 0.9 % (0-0.5); Immature Platelet Fraction Pct 1.8 % (0.9-11.2); Mean Corpuscular HGB Conc 32.6 g/dl (32-36); Mean Corpuscular Hemoglobin 33.1 pg (26-34); Mean Corpuscular Volume 101.4 fl (80-100); Mean Platelet Volume 13.5 fl (7.4-10.4); Monocytes Absolute Auto 0.9 K/mm3 (0.1-0.6); Monocytes Percent Auto 14.5 % (2.6-8.5); Platelet Count Result 283 k/mm3 (150-375); Red Blood Count 3.66 M/mm3 (4.2-5.4); Red Cell Distribution Width 20.7 % (11.5-14.5); White Blood Count 5.9 K/mm3 (4.5-10.0)
[2024-03-05 05:47] LABS: Alanine Aminotransferase 23 U/L (6-35); Albumin Level 2.9 g/dL (3.5-5.1); Alkaline Phosphatase 69 U/L (38-126); Aspartate Amino Transferase 39 U/L (14-36); Bilirubin,Total 0.7 mg/dL (0.2-1.3); Blood Urea Nitrogen 27 mg/dL (7-17); Calcium 8.6 mg/dL (8.4-10.2); Carbon Dioxide > 40 mmol/L (22-30); Chloride 95 mmol/L (98-107); Estimated CRCL calculation 31 ml/min; Estimated Glomerular Filt Rate 60; Glucose 101 mg/dL (65-110); Potassium 4.1 mmol/L (3.4-5.0); Sodium 137 mmol/L (137-145)
[2024-03-05] MEDS: SERTRALINE HCL 50 MG TABLET PO (08:42)
[2024-03-05] MEDS: oxyBUTYnin CHLORIDE XL 5 MG TAB.ER.24 15 MG PO (08:42)
[2024-03-05] MEDS: APIXABAN 5 MG TABLET PO ×2 (08:42→21:00)
[2024-03-05] MEDS: PANTOPRAZOLE 40 MG TABLET PO (08:42)
[2024-03-05] MEDS: GABAPENTIN 100 MG CAPSULE PO ×3 (08:42→16:42)
[2024-03-05] MEDS: IPRATROPIUM NASAL SPRAY 0.03% 15 ML BOTTLE 2 SPRAY NASAL ×3 (08:43→16:41)
[2024-03-05 10:48] LABS: Lactic Acid Reflex 2.1 mmol/L (0.7-2.0)
--- NOTE | 2024-03-05 12:06 | PM.IMPN ---
Progress Note: A&P Assessment and Plan (1) Chronic respiratory failure with hypoxia, on home oxygen therapy: Code(s): J96.11 - Chronic respiratory failure with hypoxia; Z99.81 - Dependence on supplemental oxygen Status: Chronic Assessment and Plan: back to baseline 7-8 L - chest xray 02/28: Worsening pulmonary opacities may represent edema or infection, overlying chronic severe interstitial changes. wbc is normal and afebrile, stable-will not start antibiotics for now - repeat chest xray 03/05: Continued worsening of likely pulmonary edema or pneumonia superimposed over asymmetric right-sided predominant chronic interstitial lung disease. - chest CT ordered - continue duonebs (2) CHF exacerbation: Code(s): I50.9 - Heart failure, unspecified Status: Acute Assessment and Plan: - Symptoms: shortness of breath without lower extremity edema - Lasix 40 mg daily IV, patient was hypotensive this am and dose held - BNP: 1570 - EKG: sinus rhythm, HR 79 without signs of ischemia - Chest XR: Worsening pulmonary opacities may represent edema or infection, overlying chronic severe interstitial changes. - Repeat chest XR in the am - Echo: LVEF 65-70% with grade I diastolic dysfunction - Incentive spirometer - Monitor vital signs, I&Os, BUN/creatinine, daily weights, neuro status and patient is a fall risk - Monitor serum electrolytes, Keep serum Potassium>4 and serum Magnesium>2 and CBC (3) Pulmonary embolism: Code(s): I26.99 - Other pulmonary embolism without acute cor pulmonale Status: Acute Assessment and Plan: h/o pe on eliquis patient states that she has not missed a dose of eliquis, less concerned about PE given the consistent eliquis use and improvement with lasix will continue (4) Generalized weakness: Code(s): R53.1 - Weakness Status: Acute Assessment and Plan: will add pt/ot (5) Obstructive sleep apnea on CPAP: Code(s): G47.33 - Obstructive sleep apnea (adult) (pediatric); Z99.89 - Dependence on other enabling machines and devices Status: Chronic Assessment and Plan: continue home cpap Time Spent With Patient Time with patient: 25 - 35 minutes Subjective Date/time seen: 03/05/24 12:06 Interval history: 83 y.o female with pmh of ILD (follows at [facility]), breast cancer, tremors, GABBY-cpap, osteoporosis, oab, GERD, BIANCA admitted from ed with c/o worsening shortness of breath. Patient is pleasant lying in bed with her family at bedside. She states that she is tired, but denies shortness of breath at this time. She remains on 8L NC with stable saturations. She has no other complaints denying chest pain, palpitations, nausea/vomiting and abdominal pain. Review of Systems Review of Systems: All systems reviewed & are unremarkable except as noted in HPI and below Exam Narrative: AF HR 85 RR 24 SpO2 97 8L NC BP 93/60 General: female in no acute respiratory distress who is nontoxic appearing, sitting up in bed HEENT: Normocephalic. Atraumatic. Extraocular movement intact. Sclera clear and anicteric. No facial asymmetry. Chest: Lungs are diminished throughout the left lung with crackles in the bases, coarse throughout the right lung with crackles throughout. No wheezes. CV: Heart was regular rate and rhythm. S1-S2. No murmurs, gallops, or rubs. Abd: Abdomen was soft. Nontender. Nondistended. Positive bowel sounds. No organomegaly or masses. Ext: No clubbing, cyanosis, or edema. 2+ DP pulses bilaterally. Neuro: Patient is alert and oriented x4. Speech is clear. Objective Data Vital Signs Vital Signs: Vital Signs - 24 hr 03/04/24 15:55 03/04/24 19:59 03/04/24 21:36 Temperature 97.7 F 98.7 F Pulse Rate 88 86 Respiratory Rate 14 18 Blood Pressure 101/51 L 96/54 L Pulse Oximetry 97 96 96 Oxygen Delivery High Flow Nasal Cannula Oxygen Flow Rate 8 03/04/24 22:16 03/05/24 00:27 03/05/24 02:30 Temperature 97.8 F Pulse Rate 84 98 Respiratory Rate 18 Blood Pressure 97/59 L Pulse Oximetry 94 98 Oxygen Delivery CPAP CPAP Oxygen Flow Rate 03/05/24 04:29 03/05/24 08:13 03/05/24 09:07 Temperature 97.5 F L 97.9 F Pulse Rate 97 97 Respiratory Rate 16 24 H Blood Pressure 97/57 L 93/59 L Pulse Oximetry 100 100 94 Oxygen Delivery High Flow Nasal Cannula Oxygen Flow Rate 8 03/05/24 11:47 Temperature 97.4 F L Pulse Rate 85 Respiratory Rate 24 H Blood Pressure 93/60 L Pulse Oximetry 97 Oxygen Delivery Oxygen Flow Rate Intake/Output Intake/Output: Intake & Output 03/02/24 03/03/24 03/04/24 03/05/24 23:59 23:59 23:59 23:59 Intake Total 1460 1210 1530 790 Output Total 2400 1200 850 275 Balance -940 10 680 515 Meds/Results Medications: Active Medications Generic Name Dose Route Start Last Admin Trade Name Freq PRN Reason Stop Dose Admin Acetaminophen 650 mg 02/29/24 18:30 03/02/24 21:24 Acetaminophen 325 Mg Tablet PO 650 mg Q4H PRN Administration Mild Pain (1-3) or Fever Hydrocodone Bitart/Acetaminophen 1 tab 02/29/24 18:30 Hydrocodone/Acetaminophen (*Crx) 5-325 Mg Tablet PO Q4H PRN Pain Rated 4-6 Albuterol/Ipratropium 3 ml 02/29/24 22:20 Ipratropium 0.5 Mg/Albuterol Sulfate 2.5 Mg Ampul.Neb 3 Ml INHALATION Q6HRT PRN Shortness of breath Apixaban 5 mg 03/01/24 21:00 03/05/24 08:42 Apixaban 5 Mg Tablet PO 5 mg Q12HR JOVITA Administration Furosemide 40 mg 03/04/24 09:00 03/04/24 11:35 Furosemide Inj 40 Mg/4 Ml Vial IV PUSH Not Given DAILY JOVITA Gabapentin 100 mg 03/01/24 09:00 03/05/24 08:42 Gabapentin 100 Mg Capsule PO 100 mg TID JOVITA Administration Ipratropium [place] 2 spray 03/01/24 09:00 03/05/24 08:43 Ipratropium Nasal [place] 0.03% 15 Ml Bottle NASAL 2 spray TID JOVITA Administration Ondansetron HCl 4 mg 02/29/24 18:30 Ondansetron Inj 4 Mg/2 Ml Vial IV PUSH Q4H PRN Nausea Oxybutynin Chloride 15 mg 03/01/24 09:00 03/05/24 08:42 Oxybutynin Chloride Xl 5 Mg Tab.Er.24 PO 15 mg DAILY JOVITA Administration Pantoprazole Sodium 40 mg 03/02/24 09:00 03/05/24 08:42 Pantoprazole 40 Mg Tablet PO 40 mg QAM JOVITA Administration Sertraline HCl 50 mg 03/01/24 09:00 03/05/24 08:42 Sertraline Hcl 50 Mg Tablet PO 50 mg DAILY JOVITA Administration Radiology Results: ITS Impressions Chest X-Ray 03/05/24 08:58 IMPRESSION: 1. Continued worsening of likely pulmonary edema or pneumonia superimposed over asymmetric right-sided predominant chronic interstitial lung disease. Labs Labs: Laboratory Results - last 24 hr 03/05/24 03/05/24 05:16 10:28 WBC 5.9 RBC 3.66 L Hgb 12.1 Hct 37.1 MCV 101.4 H MCH 33.1 MCHC 32.6 RDW 20.7 H Plt Count 283 MPV 13.5 H Immature Gran % (Auto) 0.9 H Neut % (Auto) 69.0 Lymph % (Auto) 12.0 L [place] % (Auto) 14.5 H Eos % (Auto) 2.4 Baso % (Auto) 1.2 Lymph # (Auto) 0.70 L [place] # (Auto) 0.9 H Eos # (Auto) 0.1 Baso # (Auto) 0.1 Abs Immat Gran (auto) 0.05 H Absolute Neuts (auto) 4.0 Absolute Nucleated RBC 0.000 Nucleated RBC % 0.0 % Immature Plt Fraction 1.8 Sodium 137 Potassium 4.1 Chloride 95 L Carbon Dioxide > 40 H Anion Gap BUN 27 H Creatinine 0.90 Estim Creat Clear Calc 31 Estimated GFR 60 Glucose 101 Lactic Acid 2.1 H Calcium 8.6 Total Bilirubin 0.7 AST 39 H ALT 23 Alkaline Phosphatase 69 Total Protein 6.0 L Albumin 2.9 L Quality VTE Prophylaxis VTE prophylaxis: pharmacologic ordered
[2024-03-05 13:30] LABS: Reflex Lactic Acid Yes or No Add Lactic
[2024-03-05 14:12] LABS: Lactic Acid 1.7 mmol/L (0.7-2.0)
[2024-03-05] MEDS: ACETAMINOPHEN 325 MG TABLET 650 MG PO (16:41)
[2024-03-06] VITALS (9 sets, daily range): BP systolic 93–113; BP diastolic 50–70; PULSE 38–98; RESP 16–20; TEMP 36.4–36.8; O2SAT 94–100
[2024-03-06 05:46] LABS: Basophils Absolute Auto 0.1 K/mm3 (0.0-0.1); Basophils Percent Auto 1.1 % (0.2-1.2); Eosinophils Absolute Auto 0.2 K/mm3 (0-0.3); Hematocrit 37.2 % (37.0-47.0); Hemoglobin 11.8 g/dL (12.0-15.0); Immature Granulocyte Absolute 0.05 K/mm3 (0.00-0.031); Immature Granulocyte Percent A 0.9 % (0-0.5); Mean Corpuscular HGB Conc 31.7 g/dl (32-36); Mean Corpuscular Hemoglobin 32.3 pg (26-34); Mean Corpuscular Volume 101.9 fl (80-100); Mean Platelet Volume 11.5 fl (7.4-10.4); Monocytes Absolute Auto 0.8 K/mm3 (0.1-0.6); Monocytes Percent Auto 15.2 % (2.6-8.5); Neutrophils Absolute Auto 3.6 K/mm3 (1.3-6.7); Neutrophils Percent Auto 66.8 % (45.5-73.1); Platelet Count Result 207 k/mm3 (150-375); Red Blood Count 3.65 M/mm3 (4.2-5.4); Red Cell Distribution Width 20.2 % (11.5-14.5); White Blood Count 5.4 K/mm3 (4.5-10.0)
[2024-03-06 05:58] LABS: Alanine Aminotransferase 27 U/L (6-35); Alkaline Phosphatase 75 U/L (38-126); Aspartate Amino Transferase 44 U/L (14-36); Bilirubin,Total 0.7 mg/dL (0.2-1.3); Blood Urea Nitrogen 32 mg/dL (7-17); Calcium 8.8 mg/dL (8.4-10.2); Carbon Dioxide > 40 mmol/L (22-30); Chloride 95 mmol/L (98-107); Estimated CRCL calculation 26 ml/min; Estimated Glomerular Filt Rate 48; Glucose 107 mg/dL (65-110); Potassium 4.4 mmol/L (3.4-5.0); Sodium 137 mmol/L (137-145)
--- NOTE | 2024-03-06 06:55 | P.PNIM_ITS ---
Progress Note: A&P Assessment and Plan (1) Chronic respiratory failure with hypoxia, on home oxygen therapy: Code(s): J96.11 - Chronic respiratory failure with hypoxia; Z99.81 - Dependence on supplemental oxygen Status: Chronic Assessment and Plan: back to baseline 7-8 L - chest xray 02/28: Worsening pulmonary opacities may represent edema or infection, overlying chronic severe interstitial changes. wbc is normal and afebrile, stable-will not start antibiotics for now - repeat chest xray 03/05: Continued worsening of likely pulmonary edema or pneumonia superimposed over asymmetric right-sided predominant chronic interstitial lung disease. - chest CT: Severe chronic interstitial lung disease with mosaic attenuation, interval worsening since the prior CT possibly secondary to edema and/or progressive disease. - continue duonebs 03/06: Call made to pulmonology Dr. Saenz in regards to patient. Since patient is clinically improving in that she denies shortness of breath and remains on her home oxygen he is less concerned about the imaging stating worsening disease as this is likely secondary to the edema. Her BNP has improved, since Lasix administration. If patients BP can tolerate she will be DC on low dose oral. Patient remains afebrile, without leukocytosis and has no cough he agrees this is likely not an acute infectious disease. Patient likely able to DC tomorrow with follow up in Dr. Meyer office in 4-6 weeks. (2) CHF exacerbation: Code(s): I50.9 - Heart failure, unspecified Status: Acute Assessment and Plan: - Symptoms: shortness of breath without lower extremity edema - Lasix 40 mg daily IV, patient hypotensive holding lasix - BNP: 1570, repeat 576 - EKG: sinus rhythm, HR 79 without signs of ischemia - Chest XR: Worsening pulmonary opacities may represent edema or infection, overlying chronic severe interstitial changes. - Repeat chest XR: Continued worsening of likely pulmonary edema or pneumonia superimposed over asymmetric right-sided predominant chronic interstitial lung disease. - Echo: LVEF 65-70% with grade I diastolic dysfunction - Incentive spirometer - Monitor vital signs, I&Os, BUN/creatinine, daily weights, neuro status and patient is a fall risk - Monitor serum electrolytes, Keep serum Potassium>4 and serum Magnesium>2 and CBC 03/06: Call made to pulmonology Dr. Saenz in regards to patient. Since patient is clinically improving in that she denies shortness of breath and remains on her home oxygen he is less concerned about the imaging stating worsening disease as this is likely secondary to the edema. Her BNP has improved, since Lasix administration. If patients BP can tolerate she will be DC on low dose oral. Patient remains afebrile, without leukocytosis and has no cough he agrees this is likely not an acute infectious disease. Patient likely able to DC tomorrow with follow up in Dr. Meyer office in 4-6 weeks. (3) Pulmonary embolism: Code(s): I26.99 - Other pulmonary embolism without acute cor pulmonale Status: Acute Assessment and Plan: h/o pe on eliquis patient states that she has not missed a dose of eliquis, less concerned about PE given the consistent eliquis use and improvement with lasix will continue (4) Generalized weakness: Code(s): R53.1 - Weakness Status: Acute Assessment and Plan: pt/ot - recommending home health (5) Obstructive sleep apnea on CPAP: Code(s): G47.33 - Obstructive sleep apnea (adult) (pediatric); Z99.89 - Dependence on other enabling machines and devices Status: Chronic Assessment and Plan: continue home cpap Time Spent With Patient Time with patient: 25 - 35 minutes Subjective Date/time seen: 03/06/24 06:55 Interval history: 83 y.o female with pmh of ILD (follows at [facility]), breast cancer, tremors, GABBY- cpap, osteoporosis, oab, GERD, BIANCA admitted from ed with c/o worsening shortness of breath. Patient is pleasant lying comfortably in bed. She states that she feels better today, denying increase shortness of breath. She has been more stagnant today, encouraged patient to sit up in bed/on the side or get in the chair. Patient has no other complaints denying chest pain, palpitations, nausea/vomiting and abdominal pain. Call made to pulmonology Dr. Saenz in regards to patient. Since patient is clinically improving in that she denies shortness of breath and remains on her home oxygen he is less concerned about the imaging stating worsening disease as this is likely secondary to the edema. Her BNP has improved, since Lasix administration. If patients BP can tolerate she will be DC on low dose oral. Patient remains afebrile, without leukocytosis and has no cough he agrees this is likely not an acute infectious disease. Patient likely able to DC tomorrow with follow up in Dr. Meyer office in 4-6 weeks. Review of Systems Review of Systems: All systems reviewed & are unremarkable except as noted in HPI and below Exam Narrative: AF HR 88 RR 18 SpO2 95 7L NC BP 108/70 General: female in no acute respiratory distress who is nontoxic appearing, sitting up in bed HEENT: Normocephalic. Atraumatic. Extraocular movement intact. Sclera clear and anicteric. No facial asymmetry. Chest: Lungs are diminished throughout the left lung with crackles in the bases, coarse throughout the right lung with crackles throughout. No wheezes. CV: Heart was regular rate and rhythm. S1-S2. No murmurs, gallops, or rubs. Abd: Abdomen was soft. Nontender. Nondistended. Positive bowel sounds. No organomegaly or masses. Ext: No clubbing, cyanosis, or edema. 2+ DP pulses bilaterally. Neuro: Patient is alert and oriented x4. Speech is clear. Objective Data Vital Signs Vital Signs: Vital Signs - 24 hr 03/05/24 08:13 03/05/24 08:30 03/05/24 09:07 Temperature 97.9 F Pulse Rate 97 Respiratory Rate 24 H Blood Pressure 93/59 L Pulse Oximetry 100 97 94 Oxygen Delivery High Flow Nasal Cannula High Flow Nasal Cannula Oxygen Flow Rate 8 03/05/24 11:47 03/05/24 17:32 03/05/24 19:40 Temperature 97.4 F L 97.4 F L 98.3 F Pulse Rate 85 96 78 Respiratory Rate 24 H 20 16 Blood Pressure 93/60 L 100/57 L 101/60 Pulse Oximetry 97 99 97 Oxygen Delivery Oxygen Flow Rate 03/05/24 21:00 03/05/24 21:20 03/05/24 21:21 Temperature Pulse Rate Respiratory Rate Blood Pressure Pulse Oximetry 96 96 Oxygen Delivery CPAP High Flow Nasal Cannula CPAP Oxygen Flow Rate 8 8 03/06/24 00:52 03/06/24 02:55 03/06/24 04:00 Temperature 98.2 F 98.0 F Pulse Rate 98 98 Respiratory Rate 16 16 Blood Pressure 94/66 L 108/60 Pulse Oximetry 100 98 Oxygen Delivery CPAP Oxygen Flow Rate Intake/Output Intake/Output: Intake & Output 03/03/24 03/04/24 03/05/24 03/06/24 23:59 23:59 23:59 23:59 Intake Total 1210 1530 1450 100 Output Total 1200 215 675 250 Balance 10 499 785 150 Meds/Results Medications: Active Medications Generic Name Dose Route Start Last Admin Trade Name Freq PRN Reason Stop Dose Admin Acetaminophen 650 mg 02/29/24 18:30 03/05/24 16:41 Acetaminophen 325 Mg Tablet PO 650 mg Q4H PRN Administration Mild Pain (1-3) or Fever Hydrocodone Bitart/Acetaminophen 1 tab 02/29/24 18:30 Hydrocodone/Acetaminophen (*Crx) 5-325 Mg Tablet PO Q4H PRN Pain Rated 4-6 Albuterol/Ipratropium 3 ml 02/29/24 22:20 Ipratropium 0.5 Mg/Albuterol Sulfate 2.5 Mg Ampul.Neb 3 Ml INHALATION Q6HRT PRN Shortness of breath Apixaban 5 mg 03/01/24 21:00 03/05/24 21:00 Apixaban 5 Mg Tablet PO 5 mg Q12HR JOVITA Administration Furosemide 40 mg 03/04/24 09:00 03/04/24 11:35 Furosemide Inj 40 Mg/4 Ml Vial IV PUSH Not Given DAILY JOVITA Gabapentin 100 mg 03/01/24 09:00 03/05/24 16:42 Gabapentin 100 Mg Capsule PO 100 mg TID JOVITA Administration Ipratropium [place] 2 spray 03/01/24 09:00 03/05/24 16:41 Ipratropium Nasal [place] 0.03% 15 Ml Bottle NASAL 2 spray TID JOVITA Administration Ondansetron HCl 4 mg 02/29/24 18:30 Ondansetron Inj 4 Mg/2 Ml Vial IV PUSH Q4H PRN Nausea Oxybutynin Chloride 15 mg 03/01/24 09:00 03/05/24 08:42 Oxybutynin Chloride Xl 5 Mg Tab.Er.24 PO 15 mg DAILY JOVITA Administration Pantoprazole Sodium 40 mg 03/02/24 09:00 03/05/24 08:42 Pantoprazole 40 Mg Tablet PO 40 mg QAM JOVITA Administration Sertraline HCl 50 mg 03/01/24 09:00 03/05/24 08:42 Sertraline Hcl 50 Mg Tablet PO 50 mg DAILY JOVITA Administration Radiology Results: ITS Impressions Chest X-Ray 03/05/24 08:58 IMPRESSION: 1. Continued worsening of likely pulmonary edema or pneumonia superimposed over asymmetric right-sided predominant chronic interstitial lung disease. Chest CT 03/05/24 14:12 IMPRESSION: Severe chronic interstitial lung disease with mosaic attenuation, interval worsening since the prior CT possibly secondary to edema and/or progressive disease. Labs Labs: Laboratory Results - last 24 hr 03/05/24 03/05/24 03/06/24 10:28 13:56 05:26 WBC 5.4 RBC 3.65 L Hgb 11.8 L Hct 37.2 MCV 101.9 H MCH 32.3 MCHC 31.7 L RDW 20.2 H Plt Count 207 MPV 11.5 H Immature Gran % (Auto) 0.9 H Neut % (Auto) 66.8 Lymph % (Auto) 13.0 L [place] % (Auto) 15.2 H Eos % (Auto) 3.0 Baso % (Auto) 1.1 Lymph # (Auto) 0.70 L [place] # (Auto) 0.8 H Eos # (Auto) 0.2 Baso # (Auto) 0.1 Abs Immat Gran (auto) 0.05 H Absolute Neuts (auto) 3.6 Absolute Nucleated RBC 0.000 Nucleated RBC % 0.0 Sodium 137 Potassium 4.4 Chloride 95 L Carbon Dioxide > 40 H Anion Gap BUN 32 H Creatinine 1.10 H Estim Creat Clear Calc 26 Estimated GFR 48 L Glucose 107 Lactic Acid 2.1 H 1.7 Calcium 8.8 Total Bilirubin 0.7 AST 44 H ALT 27 Alkaline Phosphatase 75 Total Protein 6.0 L Albumin 3.0 L Quality VTE Prophylaxis VTE prophylaxis: pharmacologic ordered
[2024-03-06] MEDS: IPRATROPIUM NASAL SPRAY 0.03% 15 ML BOTTLE 2 SPRAY NASAL ×3 (09:09→17:14)
[2024-03-06] MEDS: APIXABAN 5 MG TABLET PO ×2 (09:09→21:07)
[2024-03-06] MEDS: SERTRALINE HCL 50 MG TABLET PO (09:09)
[2024-03-06] MEDS: PANTOPRAZOLE 40 MG TABLET PO (09:09)
[2024-03-06] MEDS: GABAPENTIN 100 MG CAPSULE PO ×3 (09:09→17:14)
[2024-03-06] MEDS: oxyBUTYnin CHLORIDE XL 5 MG TAB.ER.24 15 MG PO (09:09)
[2024-03-06 09:36] LABS: NT Pro B Type Natriuretic Pept 576 pg/mL (19.9-100)
[2024-03-07] VITALS: BP 105/55; PULSE 72; RESP 20; TEMP 36.1; O2SAT 99
[2024-03-07 04:00] VITALS: BP 100/60; PULSE 89; RESP 20; TEMP 36; O2SAT 100
[2024-03-07] MEDS: ACETAMINOPHEN 325 MG TABLET 650 MG PO (06:29)
[2024-03-07 07:02] LABS: Basophils Absolute Auto 0.1 K/mm3 (0.0-0.1); Eosinophils Absolute Auto 0.2 K/mm3 (0-0.3); Hematocrit 35.7 % (37.0-47.0); Hemoglobin 11.2 g/dL (12.0-15.0); Immature Granulocyte Absolute 0.05 K/mm3 (0.00-0.031); Lymphocytes Percent Auto 16.8 % (18.3-44.2); Mean Corpuscular HGB Conc 31.4 g/dl (32-36); Mean Corpuscular Hemoglobin 32.5 pg (26-34); Mean Corpuscular Volume 103.5 fl (80-100); Mean Platelet Volume 12.1 fl (7.4-10.4); Monocytes Absolute Auto 0.7 K/mm3 (0.1-0.6); Monocytes Percent Auto 14.9 % (2.6-8.5); Neutrophils Percent Auto 62.3 % (45.5-73.1); Platelet Count Result 165 k/mm3 (150-375); Red Blood Count 3.45 M/mm3 (4.2-5.4); Red Cell Distribution Width 20.2 % (11.5-14.5); White Blood Count 4.8 K/mm3 (4.5-10.0)
[2024-03-07 07:24] LABS: Alanine Aminotransferase 38 U/L (6-35); Albumin Level 2.9 g/dL (3.5-5.1); Alkaline Phosphatase 67 U/L (38-126); Aspartate Amino Transferase 55 U/L (14-36); Bilirubin,Total 0.5 mg/dL (0.2-1.3); Blood Urea Nitrogen 32 mg/dL (7-17); Calcium 8.6 mg/dL (8.4-10.2); Carbon Dioxide > 40 mmol/L (22-30); Chloride 95 mmol/L (98-107); Estimated CRCL calculation 26 ml/min; Estimated Glomerular Filt Rate 48; Glucose 90 mg/dL (65-110); Potassium 4.3 mmol/L (3.4-5.0); Sodium 137 mmol/L (137-145)
[2024-03-07 08:33] VITALS: O2SAT 95
[2024-03-07 09:00] VITALS: O2SAT 100
[2024-03-07] MEDS: oxyBUTYnin CHLORIDE XL 5 MG TAB.ER.24 15 MG PO (09:07)
[2024-03-07] MEDS: GABAPENTIN 100 MG CAPSULE PO ×2 (09:08→13:07)
[2024-03-07] MEDS: APIXABAN 5 MG TABLET PO (09:08)
[2024-03-07] MEDS: SERTRALINE HCL 50 MG TABLET PO (09:08)
[2024-03-07] MEDS: PANTOPRAZOLE 40 MG TABLET PO (09:09)
[2024-03-07] MEDS: IPRATROPIUM NASAL SPRAY 0.03% 15 ML BOTTLE 2 SPRAY NASAL ×2 (09:09→13:07)
[2024-03-07 09:19] VITALS: BP 137/97; PULSE 64; RESP 20; O2SAT 100
[2024-03-07 12:00] VITALS: BP 108/47; PULSE 65; RESP 20; TEMP 36.6; O2SAT 94
--- NOTE | 2024-03-07 13:26 | P.DS_ITS ---
DS: Admitting Diagnosis Discharge Date 03/07/2024 Admitting Diagnosis Chronic respiratory failure with hypoxia on home oxygen therapy CHF exacerbation PE Generalized weakness GABBY DS: Discharge Diagnosis Discharge Diagnosis (1) Chronic respiratory failure with hypoxia, on home oxygen therapy: Code(s): J96.11 - Chronic respiratory failure with hypoxia; Z99.81 - Dependence on supplemental oxygen Status: Chronic (2) CHF exacerbation: Code(s): I50.9 - Heart failure, unspecified Status: Acute (3) Pulmonary embolism: Code(s): I26.99 - Other pulmonary embolism without acute cor pulmonale Status: Acute (4) Generalized weakness: Code(s): R53.1 - Weakness Status: Acute (5) Obstructive sleep apnea on CPAP: Code(s): G47.33 - Obstructive sleep apnea (adult) (pediatric); Z99.89 - Dependence on other enabling machines and devices Status: Chronic DS: Summary Hospital Course Reason for hospitalization: Chronic respiratory failure with hypoxia on home oxygen therapy CHF exacerbation PE Generalized weakness GABBY Hospital Course: 83 y.o female with pmh of ILD (follows at [facility]), chronic respiratory failure (baseline 7-8L NC), breast cancer s/p radiation, tremors, GABBY-cpap, osteoporosis, oab, GERD, BIANCA admitted from ed with c/o worsening shortness of breath with an increased oxygen requirement. Not meeting sepsis criteria. BNP elevated at 1570. Chest XR showed worsening pulmonary opacities may represent edema or infection, overlying chronic severe interstitial changes. Patient started on IV lasix. Echo obtained and showed LVEF 65-70% with grade I diastolic dysfunction. Repeat chest XR showed continued worsening of likely pulmonary edema or pneumonia superimposed over asymmetric right-sided predominant chronic interstitial lung disease. Patient remained afebrile, without leukocytosis and had no cough, less concerned about acute infectious etiology. CT chest obtained and showed severe chronic interstitial lung disease with mosaic attenuation, interval worsening since the prior CT possibly secondary to edema and/or progressive disease. Patients IV lasix placed on hold as she became hypotensive. Repeat BNP showed improvement. Patient returned to her baseline oxygen and denied shortness of breath. She was working with therapy and at her baseline ambulation of standing and pivoting to the chair. Prior to discharge discussed patient with pulmonology Dr. Saenz. Since patient is clinically improving in that she denies shortness of breath and remains on her home oxygen he agrees with discharge with follow up in Dr. Meyer office in 4 weeks. At discharge patient had no complaints denying chest pain, shortness of breath, palpitations, nausea/vomiting and abdominal pain. Patient discharged home with home health in a stable condition. She is to follow up with her PCP in 1 week and pulmonology in 4 weeks. Status at Discharge Functional status at discharge: wheelchair bound (stands and pivots to chair) Time Spent with Patient Time attestation: Total time spent providing and/or coordinating discharge services: Time spent: Greater than 30 minutes Exam Narrative: AF HR 65 RR 20 SpO2 94 7L NC BP 108/47 General: female in no acute respiratory distress who is nontoxic appearing, sitting up in bed HEENT: Normocephalic. Atraumatic. Extraocular movement intact. Sclera clear and anicteric. No facial asymmetry. Chest: Lungs are diminished throughout the left lung with slight crackles in the bases, dimished in the upper lobe then becomes coarse throughout the right lung with crackles. No wheezes. CV: Heart was regular rate and rhythm. S1-S2. No murmurs, gallops, or rubs. Abd: Abdomen was soft. Nontender. Nondistended. Positive bowel sounds. No organomegaly or masses. Ext: No clubbing, cyanosis, or edema. 2+ DP pulses bilaterally. Neuro: Speech is clear. DS: Data Data Completed and Pending Completed studies during hospitalization: chest XR chest XR chest CT Labs on day of discharge: Labs from last 24 hours 03/07/24 06:26 WBC 4.8 RBC 3.45 L Hgb 11.2 L Hct 35.7 L MCV 103.5 H MCH 32.5 MCHC 31.4 L RDW 20.2 H Plt Count 165 MPV 12.1 H Immature Gran % (Auto) 1.0 H Neut % (Auto) 62.3 Lymph % (Auto) 16.8 L Atkinson % (Auto) 14.9 H Eos % (Auto) 4.0 Baso % (Auto) 1.0 Lymph # (Auto) 0.80 L Atkinson # (Auto) 0.7 H Eos # (Auto) 0.2 Baso # (Auto) 0.1 Abs Immat Gran (auto) 0.05 H Absolute Neuts (auto) 3.0 Absolute Nucleated RBC 0.000 Nucleated RBC % 0.0 Sodium 137 Potassium 4.3 Chloride 95 L Carbon Dioxide > 40 H Anion Gap BUN 32 H Creatinine 1.10 H Estim Creat Clear Calc 26 Estimated GFR 48 L Glucose 90 Calcium 8.6 Total Bilirubin 0.5 AST 55 H ALT 38 H Alkaline Phosphatase 67 Total Protein 6.0 L Albumin 2.9 L Discharge Plan Discharge Attending physician on discharge: Arun Prakash Discharging Clinician: Destiny Hsu Anticipated Discharge Date/Time: 03/07/24 13:18 Patient Disposition: Home Health Service Activity: as tolerated Diet: as tolerated and heart healthy Discharge Instructions: Discharge disposition: Patient admitted to the hospital for heart failure exacerbation Started on IV lasix, however unable to go home on this medication as blood pressure was intermittently low. Follow up with your primary care provider about starting this medication. Monitor blood pressures Take caution while standing, rising, or moving Change positions slowly taking a break between each position change If you standing feel dizzy sat back down and take a break Maintain a cardiac diet, 2 g sodium, do not over hydrate Remain active Monitor urine output Daily weights, if you gain more than 3 lb within 1 day or 5 lb in 1 week notify your primary care provider Continue oxygen supplement of 7-8 L nasal cannula Follow up with Dr. Godfrey in 4 weeks Encouraged to continue with yearly vaccinations Return to the emergency department if he developed sudden shortness of breath, chest pain, nausea, vomiting, upset stomach or intractable diarrhea Return to the emergency department if you develop fever greater than 101.5 Follow-up with the primary care physician within 1-2 weeks Care Coordination: Patient to have [facility] for PT/OT eval and treat, and residential. Their phone number is [phone] if you have any questions. They will contact you to schedule their first visit. Thank you for choosing [facility] for your healthcare needs Patient Instructions: Antibiotic Form, Apixaban (By mouth), Heart Failure (DC), Pain Management (DC), Using Oxygen at Home (DC) Patient Language: Italian Stand Alone Forms: General Discharge Information Follow-up/Referrals: Consuelo Godfrey MD [Physician] - 4 Weeks Dar Wong MD [Primary Care Provider] - 1 Week Discharge Medications: Continued oxybutynin chloride 15 mg tablet extended release 24hr 15 mg PO DAILY cholecalciferol (vitamin D3) 25 mcg (1,000 unit) capsule 25 mcg PO DAILY azathioprine 50 mg tablet 50 mg PO TID Eliquis 5 mg tablet 5 mg PO BID calcium carbonate [Calcium 600] 600 mg calcium (1,500 mg) tablet 600 mg PO DAILY fish oil-dha-epa 1,200-144-216 mg capsule 1 cap PO DAILY vitamin B complex [B Complex-Vitamin B12] Tablet 1 tablet PO DAILY ipratropium bromide 21 mcg (0.03 %) spray,non-aerosol 2 spray intranasal TID 30 Days Qty: 30 2RF Rx Instructions: administer into each nostril albuterol sulfate 90 mcg/actuation HFA aerosol inhaler 1 puff inhalation Q6H PRN (Reason: shortness of breath or wheezing) 30 Days Qty: 8.5 2RF docusate sodium 50 mg Capsule 50 mg PO BID krill oil 500 mg Capsule 500 mg PO DAILY coenzyme Q10 30 mg Capsule 30 mg PO DAILY alendronate 70 mg tablet 70 mg PO WEEKLY gabapentin 100 mg capsule 100 mg PO TID sertraline 50 mg tablet 50 mg PO DAILY (DME) breast prosthetic See Rx Instructions .Route .MEDSUPPLY Qty: 1 0RF Rx Instructions: As directed omeprazole 20 mg capsule,delayed release(DR/EC) 20 mg PO DAILY Qty: 90 2RF Date of admission: 03/02/24 10:40 Primary Care Provider: Dar Wong Admitting Provider: Leland Aranad Attending physician on admission: Destiny Hsu Condition: Stable Hospitalist MIPS Heart Failure (Exclusion) Patient has history of Heart Transplant or Left Ventricular Assistive Device?: No IF YES, STOP HERE Heart Failure (Qualifier) Patient has current or prior documentation of LVEF less than or equal to 40%, or mod/servere depressed LVSF?: No IF NO, STOP HERE
== END 2024-03-07 14:10 | disposition home health service (06) | DRG 292 ==
LOC: ANHED 18:38 → ANH3MEDSUR 19:08 → ANH2MED 19:58
PROVIDERS: Internal Medicine; Admitting Provider Internal Medicine; Emergency Provider Emergency Medicine; PCP Emergency Medicine; Visit Provider Student in an Organized Health Care Education/Training Program
DX: I50.33 Acute on chronic diastolic (congestive) heart failure (principal); J84.9 Interstitial pulmonary disease, unspecified; J96.11 Chronic respiratory failure with hypoxia; G47.33 Obstructive sleep apnea (adult) (pediatric); M81.0 Age-related osteoporosis without current pathological fracture; N32.81 Overactive bladder; K21.9 Gastro-esophageal reflux disease without esophagitis; F41.1 Generalized anxiety disorder; M15.9 Polyosteoarthritis, unspecified; N18.9 Chronic kidney disease, unspecified; Z99.81 Dependence on supplemental oxygen; Z85.3 Personal history of malignant neoplasm of breast; Z90.49 Acquired absence of other specified parts of digestive tract; Z90.710 Acquired absence of both cervix and uterus; Z86.711 Personal history of pulmonary embolism
CPT/HCPCS: 36415; 36430; 36600; 71045; 71046; 71250; 80048; 80053; 82607; 82728; 82746; 82805; 82948; 83540; 83550; 83605; 83880; 84466; 84484; 85018; 85025; 85027; 85046; 85055; 85610; 85730; 86850; 86900; 86901; 86923; 93005; 93306; 96361; 96365; 96375; 96376; 97110; 97161; 97165; 97530; 99285; A9270; G0378; J1756; J1940; J2470; J7050; P9016

== ENCOUNTER 2024-05-06 10:56 | Outpatient (CLI) | payer OTHER, SELFPAY ==
--- OUTSIDE RECORDS SUMMARY | 2024-05-06 11:07 | XMS_ITS | Referral Summary ---
Author Organization [facility] Address [facility] [place] [address] Care Team Providers Care Linoleum Tile Floor Layer Name Role Phone Moe Flores MD Primary Care Provider [phone] Source Comments [facility],non-[facility] Affiliates and Associated Physician Practices is amultiple site organization consisting of ambulatory clinics and hospital sitesin [place], [place], [place] and [place]. This disclosure is being madepursuant to the Care Everywhere program and may not contain all information available regarding this patient. Last updated 17.[facility] Social History Tobacco Use Types Packs/Day Years Used Date Smoking Tobacco: Never Assessed Sex and Gender Information Value Date Recorded Sex Assigned at Not on file Gender Identity Not on file Sexual Orientation Not on file Plan of Treatment Not on file Care Teams Linoleum Tile Floor Layer Relationship Specialty Start Date End Date Moe Flores MD [address] [place] [address] PCP - General 05/13/18
--- OUTSIDE RECORDS SUMMARY | 2024-05-06 11:07 | XMS_ITS | Encounter Summary ---
Author Organization [facility] Address [address] [place] [address] Phone Care Team Providers Care Assistant Finance Director Name Role Phone Dar Wong MD Primary Care Provide r Consuelo Godfrey MD Unavailable [phone] Con Johns MD, Magdaleno Frank Unavailable + Consuelo Godfrey MD Unavailable [phone] Encounter Details Date Type Department Care Team (Late st Contact Info) Description 07/29/2023 Orders Only [facility] Pulmonary [address] [facility] Advanced Medicine [address]th [place] [address] [place] [address] Clarisse Schmidt MD [address] [place] [address] Social History Tobacco Use Types Packs/Day Years Used Date Smoking Tobacco: Former Cigarettes Smokeless Tobacco: Never AUDIT-C Answer Date Recorded Q1: How often do you have a drink containing alcohol? Never 02/05/2023 Q2: How many drinks containi ng alcohol do you have on a typical day when you are drinking? Patient does not drink Q3: How often do you have si x or more drinks on one occasion? Never 02/05/2023 Personal Safety Answer Date Recorded Have you ever been in or are you currently in a harmful physical or emotional relationship or is someone making you feel afraid or unsafe? 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 Gender Identity Not on file Sexual Orientation Not on file documented as of this encounter Plan of Treatment Not on file documented as of this encounter Visit Diagnoses Not on filedocumented in this encounter Additional Health Concerns Infection Onset Date Last Indicated Resolved Time COVID: Suspected 12/13/2023 12/13/2023 12/14/2023 12:35 AM CDT Ring Surveillance 12/17/2023 12/17/2023 12/31/2023 3:05 AM CDT documented as of this encounter Care Teams Assistant Finance Director Relationship Specialty Start Date End Date Dar Wong MD [address] [place], [place] [id number] PCP - General Emergency Medicine 08/16/21 Consuelo Godfrey MD [address] [place] [address] Consulting Physician Critical Care Med 06/25/22 Magdaleno Andujar Jr., MD [address] [facility] [address] DIV PULMONARY AND [place] [address] Fellow Pulmonary Disease 01/28/24 Consuelo Godfrey MD [address] [place] [address] Consulting Physician Critical Care Med 01/28/24 documented as of this encounter
--- OUTSIDE RECORDS SUMMARY | 2024-05-06 11:07 | XMS_ITS | Clinical Summary ---
Author Organization [facility] Address [address] [place] [address] Care Team Providers Care Poultry Slaughterer Name Role Phone Dar Wong MD Primary Care Provide r Consuelo Godfrey MD Unavailable [phone] Con Johns MD, Magdaleno Frank Unavailable + Consuelo Godfrey MD Unavailable [phone] Allergies Active Allergy Reactions Criticality Noted Date Comments Lidocaine Diarrhea Low 01/08/2023 Topical lidocaine patches only Nasrmyij-Qefridsxuc-Kqubcx venus Rash Medium 11/15/2021 Rash and wound wont heal Tetanus And Diphther. Tox (Pf) Hives Medium 11/15/2021 Medications omeprazole (PriLOSEC) 20 mg capsuleIndication s:Mucositis Prophylaxis Take 1 capsule (20 mg total) by mouth daily Active oxybutynin XL (DITROPAN XL) 15 mg 24 hr tabletIndications :Bladder Hyperactivity Take 1 tablet (15 mg total) by mouth daily Active alendronate (FOSAMAX) 70 mg tabletIndications :Post-Menopausal Osteoporosis TAKE 1 TABLET BY MOUTH WEEKLY 11/13/19 Active gabapentin (NEURONTIN) 100 mg capsuleIndication s:Neuropathic Pain Take 1 capsule (100 mg total) by mouth 3 (three) times a day 11/12/19 23 Active sertraline (ZOLOFT) 50 mg tabletIndications :depression Take 1 tablet (50 mg total) by mouth daily 12/18/19 23 Active albuterol HFA (PROVENTIL HFA,VENTOLIN HFA,PROAIR HFA) 90 mcg/actuation inhalerIndication s:Bronchospasm Prevention INHALE 1 PUFF BY MOUTH EVERY 4 HOURS NEEDED FOR SHORTNESS OF BREATH OR WHEEZING 07/04/19 24 Active sulfamethoxazole- trimethoprim (Bactrim DS) 800-160 mg per tabletIndications :Prophylaxis, Medical Take one po on Mon, Wed, Thu 24 tablet 5 10/29/19 24 Active acetaminophen (TYLENOL) 325 mg tabletIndications :Fever,Pain Take 2 tablets (650 mg total) by mouth every 6 (six) hours as needed for pain 12/28/19 24 Active apixaban (ELIQUIS) 5 mg tabletIndications :Venous Thrombosis Take 1 tablet (5 mg total) by mouth every 12 (twelve) hours 60 tablet 12/28/19 24 Active treprostiniL (TYVASO) 1.74 mg/2.9 mL (0.6 mg/mL) solution for nebulizationIndic ations:Pulmonary Arterial Hypertension Inhale 8 puffs (0.048 mg total) 4 (four) times a day 12/28/19 24 Active Additional Information Patient taking differently: 10 puffinhalation 4 times daily,Weaning up to 12 puffs 4 times a day, Indications: Pulmonary Arterial Hypertension, Reported on 01/28/2024 azaTHIOprine (IMURAN) 50 mg tabletIndications :autoimmune disease TAKE 3 TABLETS BY MOUTH DAILY 90 tablet 02/01/20 24 Active Active Problems Problem Noted Date Diagnosed Date Physical deconditioning 12/25/2023 Assessment & Plan (12/26/2023 11:13 AM CDT): PT, OT, add routine services, walking short distance using WW. 12/24 360ft with 4 breaks. 12/25 WW 500ft with 6 breaks with NRB. Assessment & Plan (12/25/2023 12:53 PM CDT): Likely some deconditioning prior to admission, exacerbated by > 1 week in ICU with limited movement. Now in PPCU to rehab with plan to return home early next week, whenever she seems ready to meet her daily needs at home physically. Hyperlipidemia, unspecified 12/25/2023 Assessment & Plan (12/25/2023 2:57 PM CDT): on rosuvastatin 10 mg daily, holding home ASA since unclear indication Bladder spasms 12/25/2023 Assessment & Plan (12/25/2023 2:58 PM CDT): continue oxybutynin (Ditropan) XL Hyperkalemia 12/25/2023 Assessment & Plan (12/27/2023 10:08 AM CDT): Persistent, tx with lokelma, hold bactrim, consult for low potassium diet, monitor BMP. K=5.2 12/24-tx with Lokelma. K=4.9 12/25. Monitor on low potassium diet. Osteoporosis 12/25/2023 Assessment & Plan (12/25/2023 3:01 PM CDT): holdling weekly alendronate weekly Mood disorder 12/25/2023 Assessment & Plan (12/25/2023 3:02 PM CDT): continue home sertraline 50 mg daily, monitor mood, outpatient follow up Neuropathic pain 12/25/2023 Assessment & Plan (12/25/2023 3:03 PM CDT): continue home gabapentin 100mg TID, prn tylenol Anemia 12/25/2023 Assessment & Plan (12/28/2023 10:25 AM CDT): AOCD 2/2 inflammation. Iron studies nl. monitor CBC trends, keep Hgb >7. Hgb=7.5 10/7am. Order tpe and screen and repeat Hgb to see if needs tx as per Pulm HTN. Acute pulmonary embolism without acute cor pulmo nale 12/14/2023 Assessment & Plan (12/25/2023 2:52 PM CDT): CT scan with B PE, also RLE DVT (chronic) LLE DVT (acute), on Eliquis BID, Assessment & Plan (12/26/2023 12:51 PM CDT): Intermediate high risk PE with mild heart strain by CT. She has not required vasopressors but has had soft BP since admission. She is improving and tolerating a reduced dose of tyvaso. Her oxygen needs improving and likely are mostly due to shunting added by clots superimposed on the background of substantial ILD. Any atelectasis, exertion, or inflammation associated with any lung infarction vs inflammation from ILD, could be contributing. She is demonstrating improved symptoms and has had a gradual improvement in her hypoxemia since admission. - continue oral anticoagulant Pulmonary HTN 12/13/2023 Assessment & Plan (12/27/2023 10:07 AM CDT): Interstitial Lung Disease/ Pulmonary HTN (diagnosed in 2019): On chronic 4L O2, 6L at night. Increased O2 requirement to 8L oxygen via NC. 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 Pulm HTN group III. Started on Prednisone taper on 10/28 for 56 days and was on Prednisone 10mg. Plan to continue low dose of tyvaso, Azathiaprine (50mg TID, switched to 75mg BID, now 150 mg daily), Prednisone 30mg daily (on taper every 3d back to 10mg), bactrim 3x weekly for ppx. Tyvaso 7puffs QID. Pred 20mg 12/25-12/27 and then 10mg daily.. Assessment & Plan (12/25/2023 12:51 PM CDT): Her group III PH is mild based on her RHC from 01/2023. She has started inhaled tyvaso as an outpatient and has had marked hypotension, but this is likely at least partly, if not mostly due to the acute pulmonary emboli. At this time, her PA pressures are likely higher than baseline due to the blood clots. Her family has brought in her home nebulizer. Her RV looked excellent on ECHO from this admission. - will increase tyvaso to 8 breaths qid. This is the dose she had been on at home prior to admission. She can remain on 8 breaths over the weekend and focus on rehab. PAD (peripheral artery disease) 10/29/2023 Autoimmune disease ([facility]) 07/14/2023 Immunosuppression 07/14/2023 SOB (shortness of breath) 01/22/2023 Acute on chronic respiratory failure with hypoxi a ([facility]) 11/21/2021 Assessment & Plan (12/28/2023 10:23 AM CDT): at home on 4L oxygen during day and 6L at hs, increased oxygen requirement to 8L, titrate oxygen as tolerated, treated with course of IV cefepime (12/14-12/20), encourage pulmonary hygiene (IS, aerobika), Severe kyphosis, rapid prednisone taper. 12/24 able to wean O2 back to baseline 4LO2 at rest, continue nocturnal CPAP- started on home machine 12/26. GABBY on CPAP 11/21/2021 Assessment & Plan (12/25/2023 2:56 PM CDT): continue home CPAP 5/ FiO2 50%, see if can titrate FiO2 at night, encouraged to bring in home machine, gel pad for nose to prevent skin breakdown (currently redness on nasal bridge) History of breast cancer 11/21/2021 GERD (gastroesophageal reflux disease) Assessment & Plan (12/25/2023 2:59 PM CDT): on home omeprazole 20 mg, switched to pantoprazole 40 mg daily, elevated HOB, bowel regimen with daily pericolaxe, prn miralax ILD (interstitial lung disease) ([facility]) Assessment & Plan (12/26/2023 12:52 PM CDT): 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 Baseline O2 needs 4L at rest, 6L with sleep/exertion. Will need repeat O2A prior to discharge. ILD stable on admission CT. - Continue azathioprine - Low suspicion for primary ILD exacerbation from my perspective. Continue prednisone to 20 mg daily and down to 10 mg daily on Thursday. She was finishing an outpatient pred taper Rx from early October when she was admitted. It would be optimal to gradually wean from 10 mg off of prednisone over the next few weeks. Resolved Problems Problem Noted Date Diagnosed Date Resolved Date Lethargy 12/21/2023 12/23/2023 Assessment & Plan (12/21/2023 3:27 PM CDT): Patient is more lethargic today (and yetserday per report) compared to usual baseline. I am concerned she is developing mild delirium. - please implement standard delirium precautions and do all possible to maximize sunlight and sleep/wake regularity - at risk for development of PNA - if O2 needs rise, please consider non-con CT chest to assess for PNA - recommend transfer out of ICU if clinically safe per ICU team Encounters Date Type Department Care Team Description 03/25/2024 Telephone [facility] Pulmonary [facility] Advanced [facility] [place] [address] [place] [address] [facility] [place] 03/21/2024 Telephone [facility] Pulmonary [address] [place] [address] [place] [address] [place] [address] [facility] [place] 03/11/2024 Telephone [facility] Pulmonary [facility] Advanced [address] [place] [address] [place] [address] [facility] [place] 03/11/2024 Telephone [facility] Pulmonary [address] [place] [address] [place] [address] [place] [address] Karen Hendricks, TERA 03/01/2024 Telephone [facility] Pulmonary [address] [place] [address] [place] [address] [place] [address] Mikala Camejo, TERA 03/01/2024 Telephone [facility] Pulmonary [facility] [address] [place] [address] [place] [address] Karen Hendricks, TERA from Last 3 Months Immunizations Name Administration Dates Next Due COVID-19 mRNA (Vega-Chi) 0.3 m L (30 mcg) vaccine (12 years and up) 12/28/2023 Influenza, Quad, Adjuvantated, Intramuscular 06/2021,02/17/2021 Influenza, Quadrivalent, Hig h Dose, Preservative Free, Intrr 01/03/2023,12/04/2019 Influenza, Trivalent, High D ose, Split, Preservative Free, Intramuscular 12/28/2023,01/30/2019 Influenza, Trivalent, IM (MDV) 01/22/2012 Influenza, Unspecified 12/21/2022 Pneumococcal Conjugate PCV 13 01/29/2018 Pneumococcal Polysaccharide PPV23 01/30/2019 RSV, Bivalent, Protein Subun it Rsvpref, Diluent (Abrysvo) 01/24/2023 ZOSTER Recombinant 07/30/2023,01/24/2023 Surgical History Surgery Date Site/Laterality Comments BREAST LUMPECTOMY 03/23/1979 - 03/22/1980 HYSTERECTOMY Medical History Medical History Date Comments ILD (interstitial lung disease) (CMS/HCC) (HCC) GABBY (obstructive sleep apnea) Breast cancer (HCC) Osteoporosis GERD (gastroesophageal reflux disease) Neuropathy (CMS/HCC) Hyperlipidemia, unspecified 12/25/2023 Family History Medical History Relation Name Comments No Known Problems Father No Known Problems Mother Relation Name Status Comments Father Mother Social History Tobacco Use Types Packs/Day Years Used Date Smoking Tobacco: Former Cigarettes Smokeless Tobacco: Never Tobacco Cessation:Counseling Given: Not Answered OASIS D0700: Social Isolation Answer Da te Recorded Frequency of experiencing loneliness or isolatio n Never 01/29/2024 OASIS A1250: Transportation Answer Date Recorded Lack of Transportation (Medical) No 01/29/2024 Lack of Transportation (Non-Medical) No 01/29/2024 Patient Unable or Declines to Respond No 01/29/2024 OASIS B1300: Health Literacy Answer Sony e Recorded Frequency of needing help to read materials from doctor or pharmacy Never 01/29/2024 AUDIT-C Answer Date Recorded Q1: How often [...] making you feel afraid or unsafe? Denies 12/13/2023 Comments No Sex and Gender Information Value Date Recorded Sex Assigned at Not on file Legal Sex Female 7:01 AM [facility] [employer] Gender Identity Not on file Sexual Orientation Not on file Obstetrics History Last Filed Vital Signs Vital Sign Reading Time Taken Comments Blood Pressure 110/59 01/29/2024 12:34 PM [facility] [employer] Pulse 73 01/29/2024 12:34 PM [facility] [employer] Temperature 37.4 C (99.3 F) 01/29/2024 12:34 PM [facility] [employer] Respiratory Rate 20 01/29/2024 12:34 PM [facility] [employer] Oxygen Saturation 99% 01/29/2024 12:34 PM [facility] [employer] Inhaled Oxygen Concentration - - Weight 54.4 kg (120 lb) 01/28/2024 2:32 PM [facility] [employer] Height 151.1 cm (4' 11.5 ) 01/28/2024 2:32 PM CS T Body Mass Index 23.83 01/28/2024 2:32 PM [facility] [employer] Plan of Treatment Health Maintenance Due Date Last Done Comments Depression Screening 1940 Osteoporosis Screening-Bone Density Scan 1942 DTaP/Tdap/Td Vaccine (1 - Tdap) 1953 Hepatitis B Screening 1960 Well Visit 65+ 09/07/2007 Covid-19 Vaccine (2023-2 5 season) 2024 12/28/2023, 01/03/2023, 12/28/2021, Additional history exists Fall Risk Assessment 12/27/2024 12/28/2023 Pneumococcal vaccine 65+ Completed 01/30/2019, 11/2017 Zoster Vaccine Completed 07/30/2023, 01/24/2023 Influenza Vaccine Completed 12/28/2023, , 12/21/2022, Additional history exists Insurance [facility] Advance Directives For more information, please contact: [phone] * Full Code (Latest Code Status on File) Date Activated Date Inactivated Comments 12/13/2023 10:50 PM 12/28/2023 7:56 PM Care Teams Poultry Slaughterer Relationship Specialty Start Date End Date Dar Wong MD [address] [place] [address] PCP - General Emergency Medicine 08/16/21 Consuelo Godfrey MD [address] [place] [address] Consulting Physician Critical Care Med 06/25/22 Magdaleno Andujar Jr., MD [address] [facility] [address] DIV IM PULMONARY AND [place] [address] Fellow Pulmonary Disease 01/28/24 Consuelo Godfrey MD [address] [place] [address] Consulting Physician Critical Care Med 01/28/24
--- OUTSIDE RECORDS SUMMARY | 2024-05-06 11:07 | XMS_ITS | Encounter Summary ---
Author Organization [facility] Address [address] [place], [place] [address] [place] [address] Care Team Providers Care Delivery Room Supervisor Name Role Phone Moe Flores MD Primary Care Provider [phone] Encounter Details Date Type Department Care Team (Late st Contact Info) Description 01/05/2023 Lab Requisition [facility] - DermPath Lab [address] [facility] [place] [address] Maricarmen Ceron DO [address] [facility] [address] [place] [address] Social History Tobacco Use Types Packs/Day Years Used Date Smoking Tobacco: Never Assessed Sex and Gender Information Value Date Recorded Sex Assigned at Not on file Gender Identity Not on file Sexual Orientation Not on file documented as of this encounter Plan of Treatment Not on file documented as of this encounter Procedures Procedure Name Priority Date/Time Associated Diagnosis Comments DERMATOPATHOLOGY Routine 01/05/2023 12:5 6 PM CDT documented in this encounter Results * DERMATOPATHOLOGY (01/05/2023 12:56 PM CDT) Case Report Dermatopathology Report Case: [id number] Authorizing Provider: Maricarmen Ceron DO Collected: 01/05/2023 12:56 PM Ordering Location: [facility] DermPath Lab Received: 01/06/2023 12:52 PM Pathologist: Joann Sen MD Specimen: Skin, right lateral eyebrow 11:32 AM CDT DERMATOPATHOLOGY LABORATORY Final Diagnosis Specimen A. SKIN, right lateral eyebrow: SQUAMOUS CELL CARCINOMA IN SITU, PRESENT AT THE BASE OF THE SPECIMEN (D04.39) (see microscopic description and comment) 11:32 AM [facility] DERMATOPATHOLOGY LABORATORY Clinical History Pigmented AK vs NMSC 11:32 AM [facility] DERMATOPATHOLOGY LABORATORY Gross Description Specimen A: Received is one formalin filled container labeled with the patient's name and designated right lateral eyebrow. The specimen consists of a shave biopsy measuring 4x5x1 mm. Jar 0. 11:32 AM [facility] DERMATOPATHOLOGY LABORATORY Microscopic Description Specimen A. SKIN, right lateral eyebrow: The epidermis shows parakeratosis, full thickness disorderly maturation of keratinocytes, mitoses at different levels, and dyskeratotic cells. The lesion extends to the base of the biopsy. COMMENT: An invasive squamous cell carcinoma cannot be ruled out. 11:32 AM [facility] DERMATOPATHOLOGY LABORATORY Disclaimer An external and internal positive and negative controls are appropriate for the histochemical, immunohistochemical and immunofluorescence stain(s) in this case (if any), except where stated explicitly. The performance characteristics of the stain(s) cited in this report were developed and its performance characteristic determined by the Dermatopathology Laboratory at [facility], directed by Dr. Leticia Gil. These tests need not be, and therefore are not, approved by the [place] Food and Drug Administration. The tests are used for clinical purposes. Billing Codes Specimen Charges Stain Charges 15464 1 11:32 AM T DERMATOPATHOLOGY LABORATORY Embedded Images 11:32 AM T DERMATOPATHOLOGY LABORATORY Pathology/Cytolo gy TISSUE SPECIMEN FROM SKIN / Unknown 01/05/2023 12:56 PM CDT 01/06/2023 12:52 PM CDT Maricarmen Ceron DO LAB - PATHOLOGY/C YTOLOGY ORDERABLES DERMATOPATHOLOGY LABORATORY [facility] - Department of Dermatology [address] Floor [place] [id number] [place] [address] documented in this encounter Visit Diagnoses Not on filedocumented in this encounter Care Teams Delivery Room Supervisor Relationship Specialty Start Date End Date Moe Flores MD [address] [place] [address] PCP - General 05/13/18 documented as of this encounter
--- OUTSIDE RECORDS SUMMARY | 2024-05-06 11:07 | XMS_ITS | Encounter Summary ---
Author Organization [facility] Address [address] [place] [address] [place] [address] Care Team Providers Care Position Clerk Name Role Phone Moe Flores MD Primary Care Provider [phone] Encounter Details Date Type Department Care Team (Late st Contact Info) Description 04/25/[address] [facility] DermPath Lab [address] [facility] [place] [address] Maricarmen Ceron DO [address] [facility] 3 [place] [address] Social History Tobacco Use Types Packs/Day Years Used Date Smoking Tobacco: Never Assessed Sex and Gender Information Value Date Recorded Sex Assigned at Not on file Gender Identity Not on file Sexual Orientation Not on file documented as of this encounter Plan of Treatment Not on file documented as of this encounter Procedures Procedure Name Priority Date/Time Associated Diagnosis Comments DERMATOPATHOLOGY Routine 04/24/2020 12:0 0 AM [facility]RAIN [facility]ER documented in this encounter Results * DERMATOPATHOLOGY (04/24/2020 12:00 AM GRAIN SAMPLER) Case Report Dermatopathology Report Case: [id number] Authorizing Provider: Maricarmen Ceron DO Collected: 04/24/2020 12:00 AM Ordering Location: [facility] DermPath Lab Received: 04/25/2020 01:18 PM Pathologist: Joann Sen MD Specimen: Skin, mid back 4:40 PM GRAIN [facility]PLER DERMATOPATHOLOGY LABORATORY Final Diagnosis Specimen A. SKIN, mid back: HYPERPLASTIC (HYPERTROPHIC) ACTINIC KERATOSIS, PIGMENTED AND INFLAMED (L57.0) POST-INFLAMMATORY PIGMENT ALTERATION (L81.9) (see microscopic description) 4:40 PM [facility] DERMATOPATHOLOGY LABORATORY Clinical History R/O MM. 4:40 PM [facility] DERMATOPATHOLOGY LABORATORY Gross Description Specimen A: Received is one formalin filled container labeled with the patient's name and designated mid back. The specimen consists of a shave measuring [id number]. Jar 0. 4:40 PM [facility] DERMATOPATHOLOGY LABORATORY Microscopic Description Specimen A. SKIN, mid back: There is hyperkeratosis alternating with parakeratosis. There is epidermal hyperplasia with disorderly maturation of keratinocytes with nuclear pleomorphism confined to the lower half of the epidermis. There is prominent pigmentation in some of the keratinocytes. The lesion is inflamed. The number of melanocytes, highlighted by MART-1/Melan-A immunohistochemical staining, is only mildly increased. Sections show abundant melanin within melanophages around the superficial vascular plexus. 4:40 PM [facility] DERMATOPATHOLOGY LABORATORY Disclaimer An external and internal positive and negative controls are appropriate for the histochemical, immunohistochemical and immunofluorescence stain(s) in this case (if any), except where stated explicitly. The performance characteristics of the stain(s) cited in this report were developed and its performance characteristic determined by the Dermatopathology Laboratory at [facility], directed by Dr. Leticia Gil. These tests need not be, and therefore are not, approved by the [place] Food and Drug Administration. The tests are used for clinical purposes. Billing Codes Specimen Charges Stain Charges 24073 1 60814 1 4:40 PM GRAIN [facility]PLER DERMATOPATHOLOGY LABORATORY Embedded Images 4:40 PM [facility] DERMATOPATHOLOGY LABORATORY Pathology/Cytolog y TISSUE SPECIMEN FROM SKIN / Unknown 04/24/2020 04/25/2020 1:18 PM GRAIN SAMPLER Maricarmen Ceron DO LAB - PATHOLOGY/C YTOLOGY ORDERABLES DERMATOPATHOLOGY LABORATORY [facility] - Department of Dermatology [facility] Medicine [address] [place] [address], [address] [phone] documented in this encounter Visit Diagnoses Not on filedocumented in this encounter Care Teams Position Clerk Relationship Specialty Start Date End Date Moe Flores MD [address] [place] [address] PCP - General 05/13/18 documented as of this encounter
--- OUTSIDE RECORDS SUMMARY | 2024-05-06 11:07 | XMS_ITS | Patient Health Summary ---
Author Organization [facility] Address [address] [place] [address] Care Team Providers Care Live In Housekeeper Name Role Phone Moe Flores MD Primary Care Provider Note from [facility],non-owned Affiliates and Associated Physician Practices is amultiple site organization consisting of ambulatory clinics and hospital sitesin [place], [place], [place] and [place]. This disclosure is being madepursuant to the Care Everywhere program and may not contain all information available regarding this patient. Last updated 17.[facility] Social History Tobacco Use Types Packs/Day Years Used Date Smoking Tobacco: Never Assessed Sex and Gender Information Value Date Recorded Sex Assigned at Not on file Gender Identity Not on file Sexual Orientation Not on file Procedures * DERMATOPATHOLOGY(Performed 01/05/2023) * DERMATOPATHOLOGY(Performed 01/31/2021) * DERMATOPATHOLOGY(Performed 04/24/2020) * DERMATOPATH TECHNICAL REPORT(Performed 05/13/2018) Results * DERMATOPATHOLOGY (01/05/2023 12:56 PM CDT) Only the most recent of3 resultswithin the time period is included. Case Report Dermatopathology Report Case: [id number] Authorizing Provider: Maricarmen Ceron DO Collected: 01/05/2023 12:56 PM Ordering Location: [facility] DermPath Lab Received: 01/06/2023 12:52 PM Pathologist: Joann Sen MD Specimen: Skin, right lateral eyebrow 11:32 AM T DERMATOPATHOLOGY LABORATORY Final Diagnosis Specimen A. SKIN, right lateral eyebrow: SQUAMOUS CELL CARCINOMA IN SITU, PRESENT AT THE BASE OF THE SPECIMEN (D04.39) (see microscopic description and comment) 11:32 AM T DERMATOPATHOLOGY LABORATORY Clinical History Pigmented AK vs NMSC 11:32 AM T DERMATOPATHOLOGY LABORATORY Gross Description Specimen A: Received is one formalin filled container labeled with the patient's name and designated right lateral eyebrow. The specimen consists of a shave biopsy measuring 4x5x1 mm. Jar 0. 11:32 AM [facility] DERMATOPATHOLOGY LABORATORY Microscopic Description Specimen A. SKIN, right lateral eyebrow: The epidermis shows parakeratosis, full thickness disorderly maturation of keratinocytes, mitoses at different levels, and dyskeratotic cells. The lesion extends to the base of the biopsy. COMMENT: An invasive squamous cell carcinoma cannot be ruled out. 11:32 AM [facility] DERMATOPATHOLOGY LABORATORY Disclaimer An external and internal positive and negative controls are appropriate for the histochemical, immunohistochemical and immunofluorescence stain(s) in this case (if any), except where stated explicitly. The performance characteristics of the stain(s) cited in this report were developed and its performance characteristic determined by the Dermatopathology Laboratory at [facility], directed by Dr. Leticia Gil. These tests need not be, and therefore are not, approved by the [place] Food and Drug Administration. The tests are used for clinical purposes. Billing Codes Specimen Charges Stain Charges 55637 1 11:32 AM CDT DERMATOPATHOLOGY LABORATORY Embedded Images 11:32 AM CDT DERMATOPATHOLOGY LABORATORY Pathology/Cytolo gy TISSUE SPECIMEN FROM SKIN / Unknown 01/05/2023 12:56 PM CDT 01/06/2023 12:52 PM CDT Maricarmen Ceron DO LAB - PATHOLOGY/C YTOLOGY ORDERABLES DERMATOPATHOLOGY LABORATORY [facility] - Department of Dermatology [address] [phone] * DERMATOPATH TECHNICAL REPORT (05/13/2018 12:[address] [facility]) Case Report Dermatopathology Report Case: [id number] Authorizing Provider: Parris Hernandez MD Collected: 05/13/2018 12:00 AM Pathologist: Jo Burks MD Received: 05/14/2018 06:23 AM Specimen: Skin, left anti helix 11:[address] [facility] DERMATOPATHOLOGY LABORATORY Clinical History CNH vs SCC, painful, non-healing. 11:[address] [facility] DERMATOPATHOLOGY LABORATORY Gross Description Specimen A: Received is one formalin filled container labeled with the patient's name and designated left anti helix. The specimen consists of a shave (2 pieces) measuring [id number] & [id number]. Jar 0. [facility] Dermatopathology Laboratory performed the technical component only. 11:[address] [facility] DERMATOPATHOLOGY LABORATORY Embedded Images 11:[address] [facility] DERMATOPATHOLOGY LABORATORY DISCLAIMER An external and internal positive and negative controls are appropriate for the histochemical, immunohistochemical and immunofluorescence stain(s) in this case (if any), except where stated explicitly. The performance characteristics of the stain(s) cited in this report were developed and its performance characteristic determined by the Dermatopathology Laboratory at [facility], directed by Dr. Leticia Gil. These tests need not be, and therefore are not, approved by the [place] Food and Drug Administration. The tests are used for clinical purposes. 11:[address] [facility] DERMATOPATHOLOGY LABORATORY Pathology/Cytolog y TISSUE SPECIMEN FROM SKIN / Unknown 05/13/2018 05/14/2018 6:[address] [facility] Parris Hernandez MD LAB - PATHOLOGY/CYT OLOGY ORDERABLES DERMATOPATHOLOGY LABORATORY [facility] - Department of Dermatology [address] [place] [address], [facility] [phone] Care Teams Live In Housekeeper Relationship Specialty Start Date End Date Moe Flores MD [address] [place] [address] PCP - General 05/13/18
--- OUTSIDE RECORDS SUMMARY | 2024-05-06 11:07 | XMS_ITS | Encounter Summary ---
Author Organization [facility] Address [address] [place] [address] Phone Care Team Providers Care Court Supervisor Name Role Phone Dar Wong MD Primary Care Provide r Consuelo Godfrey MD Unavailable [phone] Con Johns MD, Magdaleno Frank Unavailable + Consuelo Godfrey MD Unavailable [phone] Encounter Details Date Type Department Care Team (Latest Contact Info) Description 12/09/2022 Orders Only [facility] Scanning, Provider Social History Tobacco Use Types Packs/Day Years Used Date Smoking Tobacco: Former Cigarettes Comments Unknown Sex and Gender Information Value Date Recorded Sex Assigned at Not on file Legal Sex Female 7:01 AM MOTOR TESTER Gender Identity Not on file Sexual Orientation Not on file documented as of this encounter Plan of Treatment Not on file documented as of this encounter Procedures Procedure Name Priority Date/Time Associated Diagnosis Comments PULMONARY - RESULT SCAN 08/11/2023 SCAN - RADIOLOGY/IMAGING 12/09/2022 CARDIOLOGY DOCUMENT SCAN 12/09/2022 documented in this encounter Results * PULMONARY - RESULT SCAN (08/11/2023) Anatomical Region Laterality Modality Other us Provider Scanning Edited Result - Final * CARDIOLOGY DOCUMENT SCAN (12/09/2022) Anatomical Region Laterality Modality Other us Provider Scanning CV CARDIAC SERVICES PROCEDURES Final Result * SCAN - RADIOLOGY/IMAGING (12/09/2022) Anatomical Region Laterality Modality Other us Provider Scanning Final Result documented in this encounter Visit Diagnoses Not on filedocumented in this encounter Additional Health Concerns Infection Onset Date Last Indicated Resolved Time COVID: Suspected 12/13/2023 12/13/2023 12/14/2023 12:35 AM CDT Ring Surveillance 12/17/2023 12/17/2023 12/31/2023 3:05 AM CDT documented as of this encounter Care Teams Court Supervisor Relationship Specialty Start Date End Date Dar Wong MD [address] [place], [place] [address] PCP - General Emergency Medicine 08/16/21 Consuelo Godfrey MD [address] [facility] [place] [address] Consulting Physician Critical Care Med 06/25/22 Case, Magdaleno Frank Jr., MD [address] [facility] [facility] [address] DIV IM PULMONARY AND [place] [address] Fellow Pulmonary Disease 01/28/24 Consuelo Godfrey MD [address] [place] [address] Consulting Physician Critical Care Med 01/28/24 documented as of this encounter
--- OUTSIDE RECORDS SUMMARY | 2024-05-06 11:07 | XMS_ITS | Clinical Summary ---
Author Organization [facility] Address [address] [place] [address] Care Team Providers Care Silica Filter Operator Name Role Phone Moe Flores MD Primary Care Provider Source Comments [facility],non-owned Affiliates and Associated Physician Practices is amultiple site organization consisting of ambulatory clinics and hospital sitesin [place], [place], [place] and [place]. This disclosure is being madepursuant to the [...] Orientation Not on file Plan of Treatment Health Maintenance Due Date Last Done Comments BONE DENSITY TESTING 1942 DTAP/TDAP/TD VACCINES (1 - Tdap) 1961 PNEUMOCOCCAL VACCINE 50+ (1 of 1 - PCV) 1992 ZOSTER VACCINE (1 of 2) 1992 Respiratory Syncytial Virus (RSV) Vaccine Pt: or over 60 yrs (1 - 1-dose 75+ series) 2017 COVID-19 VACCINE ( - 2023-2 5 season) 2023 INFLUENZA VACCINE (#1) 2023 DEPRESSION SCREENING 03/23/2024 MEDICARE AWV CALENDAR YEAR 2024 HEPATITIS B VACCINE Aged Out No longe r eligible based on patient's age to complete this topic HIB VACCINE Aged Out No longer eligi ble based on patient's age to complete this topic HPV VACCINE Aged Out No longer eligi ble based on patient's age to complete this topic MENINGOCOCCAL (Group B) VACCINE Aged Out No longer eligible based on patient's age to complete this topic MENINGOCOCCAL VACCINE Aged Out No ludivina luther eligible based on patient's age to complete this topic Care Teams Silica Filter Operator Relationship Specialty Start Date End Date Moe Flores MD [address] [place] [address] PCP - General 05/13/18
--- OUTSIDE RECORDS SUMMARY | 2024-05-06 11:07 | XMS_ITS | Encounter Summary ---
Author Organization [facility] Address [address] [place] [address] Phone Care Team Providers Care Tableau Architect Name Role Phone Dar Wong MD Primary Care Provide r Consuelo Godfrey MD Unavailable [phone] Con Johns MD, Magdaleno Frank Unavailable + Consuelo Godfrey MD Unavailable [phone] Encounter Details Date Type Department Care Team (Latest Contact Info) Description 09/07/2023 Orders Only [facility] PUL[facility]ARY Scanning, Provider [...] on file Legal Sex Female 7:01 AM LEATHER CURRIER Gender Identity Not on file Sexual Orientation Not on file documented as of this encounter Plan of Treatment Not on file documented as of this encounter Procedures Procedure Name Priority Date/Time Associated Diagnosis Comments SCAN - LABS 09/07/2023 documented in this encounter Results * SCAN - LABS (09/07/2023) us Provider Scanning Final Result documented in this encounter Visit Diagnoses Not on filedocumented in this encounter Additional Health Concerns Infection Onset Date Last Indicated Resolved Time COVID: Suspected 12/13/2023 12/13/2023 12/14/2023 12:35 AM CDT Ring Surveillance 12/17/2023 12/17/2023 12/31/2023 3:05 AM CDT documented as of this encounter Care Teams Tableau Architect Relationship Specialty Start Date End Date Dar Wong MD [address] [place] [address] PCP - General Emergency Medicine 08/16/21 Consuelo Godfrey MD [address] [address] Consulting Physician Critical Care Med 06/25/22 Case, Magdaleno Frank Jr., MD [address] [facility] [address] DIV IM PULMONARY AND [place] [address] Fellow Pulmonary Disease 01/28/24 Consuelo Godfrey MD [address] [place] [address] Consulting Physician Critical Care Med 01/28/24 documented as of this encounter
--- OUTSIDE RECORDS SUMMARY | 2024-05-06 11:07 | XMS_ITS | Encounter Summary ---
Author Organization [facility] Address [address] [place] [address] [place] [address] Care Team Providers Care Molasses Coloring Operator Name Role Phone Moe Flores MD Primary Care Provider [phone] Encounter Details Date Type Department Care Team (Late st Contact Info) Description 05/14/[address] [facility] Care DermPath Lab [address], [place] [address] Parris Hernandez MD [address] [facility] [address] [place] [address] Social History Tobacco Use Types Packs/Day Years Used Date Smoking Tobacco: Never Assessed Sex and Gender Information Value Date Recorded Sex Assigned at Not on file Gender Identity Not on file Sexual Orientation Not on file documented as of this encounter Plan of Treatment Not on file documented as of this encounter Procedures Procedure Name Priority Date/Time Associated Diagnosis Comments DERMATOPATH TECHNICAL REPORT Routine 05/13/2018 12:00 AM JUNIOR SYSTEMS ENGINEER documented in this encounter Results * DERMATOPATH TECHNICAL REPORT (05/13/2018 12:00 AM JUNIOR SYSTEMS ENGINEER) Case Report Dermatopathology Report Case: [id number] Authorizing Provider: Parris Hernandez MD Collected: 05/13/2018 12:00 AM Pathologist: Jo Burks MD Received: 05/14/2018 06:23 AM Specimen: Skin, left anti helix 9 11:11 AM JUNIOR SYSTEMS ENGINEER DERMATOPATHOLOGY LABORATORY Clinical History CNH vs SCC, painful, non-healing. 11:11 AM [facility] DERMATOPATHOLOGY LABORATORY Gross Description Specimen A: Received is one formalin filled container labeled with the patient's name and designated left anti helix. The specimen consists of a shave (2 pieces) measuring [id number] & [id number]. Jar 0. [facility] Dermatopathology Laboratory performed the technical component only. 11:11 AM [facility] DERMATOPATHOLOGY LABORATORY Embedded Images 11:11 AM [facility] DERMATOPATHOLOGY LABORATORY DISCLAIMER An external and internal positive and negative controls are appropriate for the histochemical, immunohistochemical and immunofluorescence stain(s) in this case (if any), except where stated explicitly. The performance characteristics of the stain(s) cited in this report were developed and its performance characteristic determined by the Dermatopathology Laboratory at [facility], directed by Dr. Leticia Gil. These tests need not be, and therefore are not, approved by the [place] Food and Drug Administration. The tests are used for clinical purposes. 11:11 AM [facility] DERMATOPATHOLOGY LABORATORY Pathology/Cytolog y TISSUE SPECIMEN FROM SKIN / Unknown 05/13/2018 05/14/2018 6:23 AM [facility] Parris Hernandez MD LAB - PATHOLOGY/CYT OLOGY ORDERABLES DERMATOPATHOLOGY LABORATORY [facility] - Department of Dermatology [address] [place] [address] 5th Floor Lab [address] [phone] documented in this encounter Visit Diagnoses Not on filedocumented in this encounter Care Teams Molasses Coloring Operator Relationship Specialty Start Date End Date Moe Flores MD [address] [place] [address] PCP - General 05/13/18 documented as of this encounter
--- OUTSIDE RECORDS SUMMARY | 2024-05-06 11:07 | XMS_ITS | Referral Summary ---
Author Organization [facility] Address [address] [place] [address] Care Team Providers Care Second Floor Operator Name Role Phone Dar Wong MD Primary Care Provide r Consuelo Godfrey MD Unavailable Con Johns MD, Magdaleno Frank Unavailable + Consuelo Godfrey MD Unavailable [phone] Encounters Date Type Department Care Team Description 03/25/2024 Telephone [facility] Pulmonary [address]th [place] [address] [place] [address] Nancy Cruz 03/21/2024 Telephone [facility] Pulmonary [address]th [place] [address] [place] [address] Abigail Cruzah 03/11/2024 Telephone [facility] Pulmonary [address]th [place] [address] [place] [address] Nancy Cruz 03/11/2024 Telephone [facility] Pulmonary [address]th [place] [address] [place] [address] Karen Hendricks RN 03/01/2024 Telephone [facility] Pulmonary [address]th [place] [address] [place] [address] Mikala Camejo, TERA 03/01/2024 Telephone [facility] Pulmonary [address] 8th [place] [address] [place] [address] Karen Hendricks, TERA from Last 3 Months Allergies Active Allergy Reactions Criticality Noted Date Comments Lidocaine Diarrhea Low 01/08/2023 Topical lidocaine patches only Tulwktit-Qrchjdwerl-Tyzunh venus Rash Medium 11/15/2021 Rash and wound [...] TAKE 1 TABLET BY MOUTH WEEKLY 11/13/19 22 Active gabapentin (NEURONTIN) 100 mg capsuleIndication s:Neuropathic [...] Medical Take one po on Mon, Wed, Fri 24 tablet 5 10/29/19 24 Active acetaminophen [...] PAD (peripheral artery disease) 10/29/2023 Autoimmune disease ([facility]) 07/14/2023 Immunosuppression 07/14/2023 SOB (shortness of breath) 01/22/2023 Acute on chronic respiratory failure with hypoxi a ([facility]) 11/21/2021 Assessment & Plan (12/28/2023 10:23 AM [...] breast cancer 11/21/2021 GERD (gastroesophageal reflux disease) 2 Assessment & Plan (12/25/2023 2:59 PM CDT): on home omeprazole 20 mg, switched to pantoprazole 40 mg daily, elevated HOB, bowel regimen with daily pericolaxe, prn miralax ILD (interstitial lung disease) ([facility]) Assessment & Plan (12/26/2023 12:52 PM CDT): [...] ICU if clinically safe per ICU team Immunizations Name Administration Dates Next Due COVID-19 mRNA (EZ-Ticket) 0.3 m L (30 mcg) vaccine (12 [...] Rsvpref, Diluent (Abrysvo) 01/24/2023 ZOSTER Recombinant 07/30/2023,01/24/2023 Social History Tobacco Use Types Packs/Day Years [...] on file Legal Sex Female 7:01 AM STRAIGHTENER HAND Gender Identity Not on file Sexual Orientation Not on file Last Filed Vital Signs Vital Sign Reading Time Taken Comments Blood Pressure 110/59 01/29/2024 12:34 PM STRAIGHTENER HAND Pulse 73 01/29/2024 12:34 PM STRAIGHTENER HAND Temperature 37.4 C (99.3 F) 01/29/2024 12:34 PM STRAIGHTENER HAND Respiratory Rate 20 01/29/2024 12:34 PM STRAIGHTENER HAND Oxygen Saturation 99% 01/29/2024 12:34 PM STRAIGHTENER HAND Inhaled Oxygen Concentration - - Weight 54.4 kg (120 lb) 01/28/2024 2:32 PM STRAIGHTENER HAND Height 151.1 cm (4' 11.5 ) 01/28/2024 2:32 PM CS T Body Mass Index 23.83 01/28/2024 2:32 PM STRAIGHTENER HAND Plan of Treatment Not on file Insurance [facility] [place] [phone] Advance Directives For more information, please contact: [phone] * Full Code (Latest Code Status on File) Date Activated Date Inactivated Comments 12/13/2023 10:50 PM 12/28/2023 7:56 PM Care Teams Second Floor Operator Relationship Specialty Start Date End Date Dar Wong MD [address] [place] [address] PCP - General Emergency Medicine 08/16/21 Consuelo Godfrey MD [address] [place] [address] Consulting Physician Critical Care Med 06/25/22 Magdaleno Andujar Jr., MD [address] [facility] DIV IM PULMONARY AND [place] [address] Fellow Pulmonary Disease 01/28/24 Consuelo Godfrey MD [address] [place], [place] [address] Consulting Physician Critical Care Med 01/28/24
--- OUTSIDE RECORDS SUMMARY | 2024-05-06 11:07 | XMS_ITS | Clinical Summary ---
Author Organization [facility] Address [address] [place] [address] Care Team Providers Care Summer Child Caregiver Name Role Phone Dar Wong MD Primary Care Provider [phone] Social History Tobacco Use Types Packs/Day Years Used Date Smoking Tobacco: Never Assessed Comments Unknown Sex and Gender Information Value Date Recorded Sex Assigned at Not on file Legal Sex Female 6:58 PM CDT Gender Identity Not on file Sexual Orientation Not on file Plan of Treatment Health Maintenance Due Date Last Done Comments PHQ-2 (Physician [place]) 1954 DTaP, Tdap and Td Vaccines ( 1 - Tdap) 1961 Zoster Vaccines (1 of 2) 1992 Dexa Scan (General) 09/07/2007 Pneumococcal Vaccine: 65+ Ye ars (1 of 1 - PCV) 09/07/2007 RSV Immunization or 60+ Years (1 - 1-dose 75+ series) 2017 COVID-19 Vaccine ( - 2023-2 5 season) 2023 Influenza Adult (#1) 2023 PHQ-2 (Physician [place]) 03/23/2024 Meningococcal B Vaccine Aged Out No l onger eligible based on patient's age to complete this topic Meningococcal Vaccine Aged Out No ludivina luther eligible based on patient's age to complete this topic RSV Immunizations Under 20 Months Aged Out No longer eligible based on patient's age to complete this topic Care Teams Summer Child Caregiver Relationship Specialty Start Date End Date Dar Wong MD [address] [place] [address] PCP - General INTERNAL MEDICINE 12/25/22
--- OUTSIDE RECORDS SUMMARY | 2024-05-06 11:07 | XMS_ITS | Encounter Summary ---
Author Organization [facility] Address [address] [place] [address] Phone Care Team Providers Care Able Bodied Tankerman Name Role Phone Dar Wong MD Primary Care Provide r Consuelo Godfrey MD Unavailable [phone] Con Johns MD, Robert Alexander Unavailable + Consuelo Godfrey MD Unavailable [phone] Encounter Details Date Type Department Care Team (Late st Contact Info) Description 12/29/2023 Orders Only [facility] Pulmonary [address] [facility] Advanced Medicine 8th [place] [address] [place] [address] Magdaleno Andujar Jr., MD [address] [place] [address] Social History Tobacco Use Types Packs/Day Years Used Date Smoking Tobacco: Former Cigarettes Smokeless Tobacco: Never OASIS D0700: Social Isolation Answer Da te Recorded Frequency of experiencing loneliness or isolatio n Rarely 12/31/2023 OASIS A1250: Transportation Answer Date Recorded Lack of Transportation (Medical) No 12/31/2023 Lack of Transportation (Non-Medical) No 12/31/2023 Patient Unable or Declines to Respond No 12/31/2023 OASIS B1300: Health Literacy Answer Sony e Recorded Frequency of needing help to read materials from doctor or pharmacy Never 12/31/2023 AUDIT-C Answer Date Recorded Q1: How often [...] on file Legal Sex Female 7:01 AM CITY MAIL CARRIER Gender Identity Not on file Sexual Orientation Not on file documented as of this encounter Plan of Treatment Not on file documented as of this encounter Visit Diagnoses Not on filedocumented in this encounter Additional Health Concerns Infection Onset Date Last Indicated Resolved Time Ring Surveillance 12/17/2023 12/17/2023 12/31/2023 3:05 AM CDT documented as of this encounter Care Teams Able Bodied Tankerman Relationship Specialty Start Date End Date Dar Wong MD [address] [place] [address] PCP - General Emergency Medicine 08/16/21 Consuelo Godfrey MD [address] [address] Consulting Physician Critical Care Med 06/25/22 Magdaleno Andujar Jr., MD [address] [facility] [address] DIV IM PULMONARY AND [place] [address] Fellow Pulmonary Disease 01/28/24 Consuelo Godfrey MD [address] [address] Consulting Physician Critical Care Med 01/28/24 documented as of this encounter
== END 2024-05-06 10:57 | disposition home or self-care (01) ==
LOC: ANHAUDIO 10:56
PROVIDERS: PCP Emergency Medicine; Visit Provider Otolaryngology
DX: H69.91 Unspecified Eustachian tube disorder, right ear (principal); J31.0 Chronic rhinitis; H90.3 Sensorineural hearing loss, bilateral
CPT/HCPCS: 92557; 92567